=== PATIENT | female | born 1940 | race Caucasian/White ===

== ENCOUNTER → 2020-03-02 12:14 | Outpatient (CLI) | payer MEDICARE, MEDICAID, SELFPAY ==
--- NOTE | 2020-03-02 12:26 | MRI_ITS ---
STUDY: MRI CERVICAL SPINE WITHOUT CONTRAST REASON FOR EXAM: Female, 79 years old. spondylosis, radiculopathy, L SHOULDER PAIN RADIATES INTO HEAD TECHNIQUE: Standardized fat and water weighted pulse sequences were obtained in the sagittal and axial planes. COMPARISON: None FINDINGS: Normal foramen magnum and brainstem-cervical cord junction. Normal craniovertebral junction. Normal anterior atlantoaxial articulation. Normal odontoid process. Normal cervical lordosis. Normal vertebral bodies and posterior osseous elements. C2-3: Normal endplates. Normal disc height, signal and morphology. Normal central canal and intervertebral neural foramina. C3-4: 2 mm retrolisthesis of C3 on C4 with a mild broad disc osteophyte complex produces moderate spinal stenosis with abutment of the central spinal cord and moderate lateral neural foraminal stenosis. C4-5: Normal endplates. Normal disc height, signal and morphology. Normal central canal and intervertebral neural foramina. C5-6: Mild broad disc osteophyte complex produces moderate spinal stenosis with abutment of the central spinal cord and mild bilateral neural foraminal stenosis. C6-7: Mild bilobed disc osteophyte complex and bilateral uncovertebral hypertrophy produces mild spinal stenosis and mild bilateral neural foraminal stenosis. C7-T1: Normal endplates. Normal disc height, signal and morphology. Normal central canal and intervertebral neural foramina. Normal cervical cord. Normal visualized soft tissue structures. MRI/Spine Cervical (Routine) IMPRESSION: Multilevel degenerative changes, as described above. Electronically Signed: Zacarias Grier MD at 17:11 EDT Tel , Service support ,
== END ==
PROVIDERS: PCP Nurse Practitioner Family; Referring Provider Nurse Practitioner Family; Visit Provider Nurse Practitioner Family
DX: M48.9 Spondylopathy, unspecified (principal); M54.12 Radiculopathy, cervical region; M48.02 Spinal stenosis, cervical region; M47.812 Spondylosis without myelopathy or radiculopathy, cervical region
CPT/HCPCS: 72141

== ENCOUNTER → 2024-02-13 | Outpatient (CLI) | payer MEDICARE, MEDICAID, SELFPAY ==
--- NOTE | 2024-02-12 13:00 | ASPIG_PTH ---
PATIENT: VICKIE BLUE LOC: [facility] U#:[id number] AGE/SX: 83/F ROOM: RE02/13/[address]: Dr. Yony Ramirez MD : 1940 BED: DIS: 02/13/2024 SPEC #: [id number] RECD: 02/12/24 15:20 STATUS: BRANDON REIleana #: [id number] WILIAN: 02/12/24 13:[address]: Yony Ramirez DEPT: CYTOLOGY RECD BY: Liyah Solo ENTERED: 02/13/24 10:14 SP TYPE: ASP OUT OTHR DR: Dr. Judy Erwin MD Tissues: A - Thyroid gland, NOS B - Thyroid gland, NOS Procedures: FNA Specimen Adequacy Special Stain Group II Surgery Specimen Level IV Cytology Other HEADER OPERATION: Fine needle aspiration of right thyroid nodule PRE-OP DIAGNOSIS: Right thyroid nodule TISSUE SUBMITTED: A- Right thyroid nodule fluid, B- Right thyroid nodule slides DIAGNOSIS CYTOLOGY A. Right thyroid nodule fluid, fine needle aspiration (cytospins and cellblock): Negative for malignant cells. B. Right thyroid nodule, fine needle aspiration (smears): Consistent with benign follicular/colloid nodule, [place] Category II. See comment. DAJAerika 02/16/2024 COMMENT A. Specimen is bloody and follicular cells are not identified. B. The specimen is paucicellular, however, contains minimal number of follicular cells required for adequacy of the specimen. The [place] System for thyroid diagnostic categorization was used in the evaluation of this case. Correlation with clinical, radiologic findings and appropriate follow up are necessary. Case has been reviewed in consultation with Dr. Valdivia who concurs with the above diagnosis. IDC:AM CYTOLOGY STUDY Slides are reviewed. CYTOLOGY GROSS A. Received is 30 ml of red fluid labeled with the patient's name and and designated per the requisition as Right thyroid nodule. Submitted for cytology preparation including cell block. B. Received are 4 smears labeled with the patient's name and designated per the requisition as Right thyroid nodule. Submitted for staining. Mr 02/13/2024 TC:5 CPT: [id number]
== END | disposition home or self-care (01) ==
PROVIDERS: PCP Family Medicine; Referring Provider Surgery; Visit Provider Surgery
DX: E04.1 Nontoxic single thyroid nodule (principal)
CPT/HCPCS: 88161; 88172; 88305; 88313

== ENCOUNTER → 2024-07-22 | Outpatient (CLI) | payer MEDICARE, MEDICAID, SELFPAY ==
[2024-07-22 18:29] LABS: Anion Gap 8 (5-15); BUN 16 mg/dL (4-19); BUN/Creat Ratio 13.5 RATIO (10-20); Chloride 107 mmol/L (98-108); Creatinine, Serum 1.21 mg/dL (0.70-1.20); EST Glomerular Filtration Rate 44 (>60); Glucose 93 mg/dL (70-99); Magnesium 1.9 mg/dL (1.5-2.2); Potassium 4.2 mmol/L (3.3-5.1); Sodium Level 138 mmol/L (133-145)
== END | disposition home or self-care (01) ==
LOC: BFHLAB 14:02
PROVIDERS: PCP Family Medicine; Visit Provider Family Medicine
DX: I49.3 Ventricular premature depolarization (principal); E04.1 Nontoxic single thyroid nodule
CPT/HCPCS: 36415; 80048; 83735; 84443

== ENCOUNTER → 2025-02-19 | Outpatient (CLI) | payer MEDICARE, MEDICAID, SELFPAY ==
--- OUTSIDE RECORDS SUMMARY | 2025-02-19 11:18 | XMS RPT_ITS | CCD ---
Author Organization [facility] Care Team Providers Care Block Breaker Name Role Phone Alexa Sky Referring Unavailable Alexa Sky Attending Unavailable Judy Erwin Primary Care Unavailable Judy Erwin Attending Unavailable Judy Erwin Primary Care Unavailable Alexa Sky Attending Unavailable Brodie Erwinnah Referring Unavailable Judy Erwin Primary Care Unavailable Rip BUCKLEY, Dr. Kim Primary Care Provider Dr. Judy Erwin MD Attending Provider [phone] BRODIE ERWINNAH Consulting Unavailable DAR DUMAS MD Primary Care UnavailDAR Conrad MD Attending UnavailDAR Conrad MD Admitting Unavailabl e PROVIDER, UNKNOWN Consulting Unavailable PROVIDER, UNKNOWN Consulting Unavailable BRODIE ERWINNAH Consulting Unavailable JUDY ERWIN Attending Unavailable RPI JUDY Admitting Unavailable RYLEEEDEL, JUDY Primary Care Unavailable PROVIDER, UNKNOWN Consulting Unavailable PROVIDER, UNKNOWN Consulting Unavailable BRODIE ERWINNAH Consulting Unavailable ALEXA SKY MD Admitting Unavailable ALEXA SKY MD Primary Care Unavailable ALEXA SKY MD Attending Unavailable PROVIDER, UNKNOWN Consulting Unavailable PROVIDER, UNKNOWN Consulting Unavailable DAVIDEL JUDY Consulting Unavailable MUKESH WISDOM MD Primary Care Unava ilable MUKESH WISDOM MD Attending Unava ilMUKESH Cooper MD Admitting Unava ilable PROVIDER, UNKNOWN Consulting Unavailable PROVIDER, UNKNOWN Consulting Unavailable MIEDEL, JUDY Consulting Unavailable RIP JUDY Attending Unavailable RIP, JUDY Admitting Unavailable RIP JUDY Primary Care Unavailable PROVIDER, UNKNOWN Consulting Unavailable PROVIDER, UNKNOWN Consulting Unavailable BRODIE ERWINNAH Consulting Unavailable MIEDEL, JUDY Referring Unavailable RANDI BARNETT MD Primary Care Unavailable RANDI BARNETT MD Admitting Unavailable RANDI BARNETT MD Attending Unavailable PROVIDER, UNKNOWN Consulting Unavailable PROVIDER, UNKNOWN Consulting Unavailable JUDY ERWIN Consulting Unavailable DAVIDELDANDREH Attending Unavailable DAVIDEL, JUDY Admitting Unavailable MISURIEL, JUDY Primary Care Unavailable PROVIDER, UNKNOWN Consulting Unavailable PROVIDER, UNKNOWN Consulting Unavailable ALLIEDYLAN BUCK Primary Care Unavailable ALLIEDYLAN BUCK Attending Unavailable BRODIE ERWINNAH Consulting Unavailable ALLIE, DYLAN Admitting Unavailable PROVIDER, UNKNOWN Consulting Unavailable PROVIDER, UNKNOWN Consulting Unavailable TAWANNA MARTÍNEZ Primary Care Unavailable TAWANNA MARTÍNEZ Attending Unavailable TAWANNA MARTÍNEZ Admitting Unavailable JUDY ERWIN Consulting Unavailable PROVIDER, UNKNOWN Consulting Unavailable PROVIDER, UNKNOWN Consulting Unavailable Allergies Allergy Classification Reported Allergen(s) Allergy Type Date of Onset Reaction(s) Facility (1 source) Cephalexin Drug Allergy 02-12-20 [facility] Repository (2 sources) cyclobenzaprine Drug Allergy 02-12-20 Nausea [facility] Repository (1 source) Lovastatin Drug Allergy 02-12-20 [facility] Repository (2 sources) Pentazocine Drug Allergy 02-12-20 MADE HER FEEL FUNNY [facility] Repository (1 source) Juakvde-Jwz-Ntk Reductase Inhibitor Drug allergy (disorder) 02-12-20 [facility] Repository (1 source) Cephalexin Drug Allergy 02-12-20 unknown [facility] (1 source) Lovastatin Drug Allergy 02-12-20 [facility] (1 source) Hypqaub-Ebp-Sjk Reductase Inhibitor Propensity to adverse reactions 02-12-20 Nausea [facility] (1 source) Cephalexin Drug Allergy [facility] Repository (1 source) gatifloxacin Drug Allergy [facility] Repository (1 source) Lovastatin Drug Allergy [facility] Repository (1 source) Pentazocine Drug Allergy [facility] Repository (1 source) Pentazocine Drug Allergy [facility] Repository (1 source) STATINS (HMG-COA REDUCTASE INHIBITORS) Drug allergy (disorder) [facility] Repository Medications Current Medications Medication Drug Class(es) Dates Sig (Normalized) Sig (Original) [id number] 200 actuat albuterol 0.09 mg/actuat metered dose inhaler (1 source) beta2-Adrenergic Agonist Start: 02-12-2024 Albuterol Sulfate 90 mcg/actuation HFA aerosol inhaler Active INHALATION February 12, 2024 12:00am amLODIPine 2.5 mg oral tablet (2 sources) Dihydropyridine Calcium Channel Tere Start: 02-12-2024 take 1 tablet by mouth once daily Amlodipine 2.5 mg tablet Active 2.5 mg PO daily February 12, 2024 12:00am Start: 05-22-2015 End: 04-21-2020 take 1 tablet by mouth once daily Amlodipine 2.5 MG tablet Discontinued 2.5 mg PO DAILY May 22, 2015 1:00am April 21, 2020 2:00pm aspirin 81 mg delayed release oral tablet (3 sources) Platelet Aggregation Inhibitor, Nonsteroidal Anti-inflammatory Drug Start: 02-12-2024 take 1 tablet by mouth once daily Aspirin 81 mg tablet,delayed release (DR/EC) Active 81 mg PO daily February 12, 2024 12:00am Start: 06-09-2015 End: 02-12-2024 take 1 tablet by mouth twice daily at mealtime Aspirin 325 MG tablet Discontinued 325 mg PO TWICE DAILY WITH MEALS 90 June 09, 2015 1:00am February 12, 2024 1:05pm Start: 05-22-2015 End: 06-09-2015 take 1 tablet by mouth once daily Aspirin 81 MG tablet Discontinued 81 mg PO DAILY@0800 May 22, 2015 1:00am June 09, 2015 11:00am 12 hr buPROPion hydrochloride 150 mg extended release oral tablet (2 sources) Aminoketone Start: 02-12-2024 take 1 tablet by mouth once daily Bupropion Hcl 150 mg tablet sustained-release 12 hr Active 150 mg PO daily February 12, 2024 12:00am Start: 05-22-2015 End: 02-12-2024 take 1 tablet by mouth once daily Bupropion Hcl 150 MG tablet extended release 24 hr Discontinued 150 mg PO DAILY May 22, 2015 1:00am February 12, 2024 1:05pm carvedilol 12.5 mg oral tablet (1 source) alpha-Adrenergic Tere, beta-Adrenergic Tere Start: 02-12-2024 take 1 tablet by mouth twice daily Carvedilol 12.5 mg tablet Active 12.5 mg PO TWICE A DAY February 12, 2024 12:00am famotidine 20 mg oral tablet (1 source) Histamine-2 Receptor Antagonist Start: 02-12-2024 take 1 tablet by mouth twice daily Famotidine 20 mg tablet Active 20 mg PO TWICE A DAY February 12, 2024 12:00am losartan potassium 25 mg oral tablet (1 source) Angiotensin 2 Receptor Tere Start: 02-12-2024 take 1 tablet by mouth once daily Losartan 25 mg tablet Active 25 mg PO daily February 12, 2024 12:00am magnesium chloride 598 mg delayed release oral tablet (1 source) Start: 02-12-2024 take 2 tablets by mouth twice daily Magnesium Chloride (Slow-Mag) 71.5 mg tablet,delayed release (DR/EC) Active 143 mg PO TWICE A DAY February 12, 2024 12:00am Completed/Discontinued Medications Medication Drug Class(es) Dates Sig (Normalized) Sig (Original) acetaminophen 325 mg / HYDROcodone bitartrate 5 mg oral tablet (2 sources) Opioid Agonist Start: 04-21-2020 End: 02-12-2024 Hydrocodone-Acetami nophen 5-325 mg tablet Discontinued 1 {tbl} PO TWICE A DAY as needed April 21, 2020 1:00am February 12, 2024 1:04pm Start: 05-22-2015 End: 04-21-2020 Hydrocodone-Acetaminophen 1 EACH tablet Discontinued 1 NMA PO EVERY 4 HOURS NEEDED as needed for Pain May 22, 2015 1:00am April 21, 2020 1:58pm amiodarone hydrochloride 200 mg oral tablet (1 source) Antiarrhythmic Start: 04-21-2020 End: 02-12-2024 take 1 tablet by mouth once daily Amiodarone 200 mg tablet Discontinued 200 mg PO DAILY April 21, 2020 1:00am February 12, 2024 1:04pm atorvastatin 80 mg oral tablet (1 source) HMG-CoA Reductase Inhibitor Start: 05-22-2015 End: 02-12-2024 take 1 tablet by mouth at bedtime Atorvastatin 80 MG tablet Discontinued 80 mg PO AT BEDTIME May 22, 2015 1:00am February 12, 2024 1:03pm calcium carbonate 1250 mg oral tablet (1 source) Start: 06-09-2015 End: 02-12-2024 take 1 tablet by mouth twice daily at mealtime Calcium Carbonate 500 MG tablet Discontinued 500 mg PO TWICE DAILY WITH MEALS June 09, 2015 1:00am February 12, 2024 1:05pm celecoxib 200 mg oral capsule (1 source) Nonsteroidal Anti-inflammatory Drug Start: 06-09-2015 End: 04-21-2020 take 1 capsule by mouth twice daily Celecoxib 200 MG capsule Discontinued 200 mg PO TWICE A DAY June 09, 2015 1:00am April 21, 2020 1:59pm clopidogrel 75 mg oral tablet (1 source) P2Y12 Platelet Inhibitor Start: 04-21-2020 End: 02-12-2024 take 1 tablet by mouth once daily Clopidogrel 75 mg tablet Discontinued 75 mg PO DAILY April 21, 2020 1:00am February 12, 2024 1:04pm diazePAM 5 mg oral tablet (1 source) Benzodiazepine Start: 05-22-2015 End: 04-21-2020 take 1 tablet by mouth at bedtime Diazepam 5 MG tablet Discontinued 5 mg PO AT BEDTIME May 22, 2015 1:00am April 21, 2020 1:59pm docusate sodium 50 mg / sennosides, skilled nursing 8.6 mg oral tablet (1 source) Start: 06-09-2015 End: 02-12-2024 Sennosides-Docusat e Sodium 1 TABLET tablet Discontinued 2 {tbl} PO TWICE A DAY June 09, 2015 1:00am February 12, 2024 1:04pm ergocalciferol 1.25 mg oral capsule (1 source) Provitamin D2 Compound Start: 05-22-2015 End: 02-12-2024 Ergocalciferol (Vitamin D2) 50,000 UNIT capsule Discontinued 91711 U PO Q14D May 22, 2015 1:00am February 12, 2024 1:05pm esomeprazole 20 mg delayed release oral capsule (1 source) Proton Pump Inhibitor Start: 04-21-2020 End: 02-12-2024 take 1 capsule by mouth once daily Esomeprazole Magnesium 20 mg capsule,delayed release(DR/EC) Discontinued 20 mg PO DAILY April 21, 2020 1:00am February 12, 2024 1:05pm Food Supplemt, Lactose-Reduced 120 ML liquid (1 source) Start: 06-09-2015 End: 04-21-2020 take 1 mL by mouth four times daily Food Supplemt, Lactose-Reduced 120 ML liquid Discontinued 120 mL PO 4 TIMES DAILY 0 June 09, 2015 1:00am April 21, 2020 1:59pm furosemide 40 mg oral tablet (1 source) Loop Diuretic Start: 04-21-2020 End: 02-12-2024 take 1 tablet by mouth once daily Furosemide 40 mg tablet Discontinued 40 mg PO DAILY April 21, 2020 1:00am February 12, 2024 1:04pm lidocaine 0.05 mg/mg topical ointment (1 source) Antiarrhythmic, Amide Local Anesthetic Start: 05-22-2015 End: 04-21-2020 Lidocaine 35 GM ointment Discontinued 35 g TOPICAL NEEDED as needed for Pain May 22, 2015 1:00am April 21, 2020 1:59pm lisinopril 20 mg oral tablet (1 source) Angiotensin Converting Enzyme Inhibitor Start: 05-22-2015 End: 04-21-2020 take 1 tablet by mouth once daily Lisinopril 20 MG tablet Discontinued 20 mg PO DAILY May 22, 2015 1:00am April 21, 2020 1:59pm magnesium hydroxide 80 mg/ml oral suspension (1 source) Start: 05-22-2015 End: 04-21-2020 take 1 mL by mouth once daily as needed for constipation Magnesium Hydroxide 30 ML suspension Discontinued 15 mL PO DAILY NEEDED as needed for Constipation May 22, 2015 1:00am April 21, 2020 2:00pm magnesium oxide 400 mg oral tablet (1 source) Start: 06-09-2015 End: 02-12-2024 take 1 tablet by mouth twice daily at mealtime Magnesium Oxide 400 MG tablet Discontinued 400 mg PO TWICE DAILY WITH MEALS June 09, 2015 1:00am February 12, 2024 1:04pm meloxicam 15 mg oral tablet (1 source) Nonsteroidal Anti-inflammatory Drug Start: 05-22-2015 End: 06-09-2015 take 1 tablet by mouth once daily Meloxicam 15 MG tablet Discontinued 15 mg PO DAILY May 22, 2015 1:00am June 09, 2015 11:01am metoprolol tartrate 50 mg oral tablet (2 sources) beta-Adrenergic Tere Start: 04-21-2020 End: 02-12-2024 take 1 tablet by mouth once daily Metoprolol Tartrate 50 mg tablet Discontinued 50 mg PO DAILY April 21, 2020 1:00am February 12, 2024 1:04pm Start: 05-22-2015 End: 04-21-2020 take 1 tablet by mouth twice daily Metoprolol Tartrate 50 MG tablet Discontinued 50 mg PO TWICE A DAY May 22, 2015 1:00am April 21, 2020 1:59pm nitroglycerin 0.4 mg sublingual tablet (1 source) Nitrate Vasodilator Start: 05-22-2015 End: 02-12-2024 Nitroglycerin 0.4 MG tablet Discontinued 0.4 mg SL Q5M as needed for Chest Pain May 22, 2015 1:00am February 12, 2024 1:04pm abuse-deterrent 12 hr oxyCODONE hydrochloride 10 mg extended release oral tablet (1 source) Opioid Agonist Start: 06-09-2015 End: 04-21-2020 take 1 tablet by mouth twice daily Oxycodone 10 MG tablet Discontinued 10 mg PO TWICE A DAY June 09, 2015 1:00am April 21, 2020 2:00pm pantoprazole 40 mg delayed release oral tablet (1 source) Proton Pump Inhibitor Start: 05-22-2015 End: 04-21-2020 take 1 tablet by mouth once daily Pantoprazole 40 MG tablet Discontinued 40 mg PO DAILY May 22, 2015 1:00am April 21, 2020 2:00pm PARoxetine hydrochloride 10 mg oral tablet (1 source) Serotonin Reuptake Inhibitor Start: 05-22-2015 End: 02-12-2024 take 1 tablet by mouth once daily Paroxetine Hcl 10 MG tablet Discontinued 10 mg PO DAILY May 22, 2015 1:00am February 12, 2024 1:04pm potassium chloride 10 meq extended release oral tablet (1 source) Start: 05-22-2015 End: 04-21-2020 take 1 tablet by mouth once daily Potassium Chloride 10 MEQ tablet,ER particles/crystals Discontinued 10 meq PO DAILY May 22, 2015 1:00am April 21, 2020 2:00pm venlafaxine 25 mg oral tablet (1 source) Serotonin and Norepinephrine Reuptake Inhibitor Start: 04-21-2020 End: 02-12-2024 take 1 tablet by mouth once daily Venlafaxine 25 mg tablet Discontinued 25 mg PO DAILY April 21, 2020 1:00am February 12, 2024 1:05pm Problems Active Problems Problem Classification Problem Date Documented Da te Episodic/Chronic Cardiac dysrhythmias (1 source) Ventricular premature depolarization; Translations: [Ventricular premature depolarization] Onset: 07-29-2024 Chronic Coronary atherosclerosis and other heart disease (1 source) Coronary arteriosclerosis; Translations: [Atherosclerotic heart disease of [place] coronary artery without angina pectoris] 06-07-2015 Chronic Disorders of lipid metabolism (1 source) Hypercholesterolemia ; Translations: [Pure hypercholesterolemia , unspecified] 06-07-2015 Chronic Essential hypertension (1 source) Hypertensive disorder; Translations: [Essential (primary) hypertension] 06-07-2015 Chronic Osteoarthritis (1 source) Arthritis of hip; Translations: [Unilateral primary osteoarthritis, right hip] 06-07-2015 Chronic Comment on above: Total right hip arth roplasty June 06, 2015 Thyroid disorders (2 sources) Nontoxic single thyroid nodule; Translations: [Thyroid nodule] Onset: 03-09-2024 02-12-2024 Chronic Comment on above: Patient 83-year-old female, reasonably healthy for her stated age, who presents on referral for right thyroid nodule after several years of ultrasound surveillance. The nodule is noted to have increased in size from prior study performed in 2021. Largely, patient's history is negative for any evidence of compressive physiology (the positives that she does acknowledge appear related to an infectious cause). When patient's dimensions were applied to the LALO change in volume thyroid nodule calculator this nodule has grown by 89% in 2 years. Additionally, meets criteria strictly with interpreting the dimensions against the ACR standards. Thus, I did extend the radiology recommendation for biopsy to patient and her son today. They were receptive and the procedure was undertaken uncomplicated fashion during today's visit. Complete details are given in the "procedures" section of this note. Past or Other Problems Problem Classification Problem Date Documented Da te Episodic/Chronic Other gastrointestinal disorders (3 sources) Other fecal abnormalities; Translations: [Other fecal abnormalities] Onset: 04-30-2024 Episodic Results Test Name Value Interpretation Reference Range Facility SHOULDER COMPLETE LTon 02-[address] ? [place] [address] ? Patient: VICKIE BLUE Phone#: : [phone] Age: 84 Gender: F Pt. Type: Out Account: [id number] Location: [facility] Ordering: [facility] Exam Date: 02/04/2025/12:55 Family Phys: JUDY ERWIN Charge Code: 064222 Physician: Kleberg Order #: [id number] Dose#: PROCEDURE: X-RAY SHOULDER LT MIN 2 VIEWS COMPARISON: [facility], XR, SHOULDER LT, 05/18/2020, 10:58. INDICATIONS: Pain. FINDINGS: BONES: No fracture or dislocation. There is a large bulky spur at the inferior humeral head. There is spur of the inferior glenoid rim. There is diffuse bony demineralization. Glenohumeral joint space loss. SOFT TISSUES: Negative. No visible soft tissue swelling. EFFUSION: None visible. OTHER: Aortic calcifications CONCLUSION: 1. Glenohumeral joint space loss and spurring Dictated by: Griselda Sinha MD on 02/04/2025 at 13:48 Approved by: Griselda Sinha MD on 02/04/2025 at 13:51 Normal [facility] CHEST 2 VIEWSon 12-16-2024 CHEST 2 VIEWS [place] [address] Patient: VICKIE BLUE Phone#: : 1940 Age: 84 Gender: F Pt. Type: Out Account: [id number] Location: [facility] Ordering: JUDY ERWIN Exam Date: 12/16/2024/13:13 Family Phys: Charge Code: 341502 Physician: Kleberg Order #: [id number] Dose#: PROCEDURE: X-RAY CHEST 2 VIEWS COMPARISON: [facility], CT, CHEST PE W CON, 05/05/2024, 22:54. [facility], XR, CHEST 1 VIEW, 05/05/2024, 21:39. INDICATIONS: Dyspnea. FINDINGS: LUNGS: Lungs are hyperinflated. Chronic interstitial changes are present. VASCULATURE: Normal. Unremarkable pulmonary vasculature. CARDIAC: Normal. No cardiac silhouette abnormality or cardiomegaly. MEDIASTINUM: Calcification of the aortic arch is present. PLEURA: Normal. No effusion or pleural thickening. BONES: Degenerative changes are present at the shoulders. OTHER: There is interposition of bowel beneath the right hemidiaphragm. CONCLUSION: 1. COPD. There has been no significant change since previous exam. Dictated by: Jenny Gonzalez MD on 12/16/2024 at 13:22 Approved by: Jenny Gonzalez MD on 12/16/2024 at 13:26 Normal [facility] BMP with eGFRon 12-14-2024 AGE 84 years Normal [facility] Comment on above: Performed By: #### 2 [id number] ####[facility],[address] [place] [address] 28046 Anion gap [Moles/Vol] 13 mmol/L Normal 10 - 20 [facility] Comment on above: Performed By: #### 2 [id number] ####[facility],[address] [place] [address] 13009 BMP with eGFR Normal [facility] Comment on above: Result Comment: BASI C METABOLIC PANEL Performed By: #### 2 [id number] ####[facility],[address] [place] [address] 28111 Calcium [Mass/Vol] 8.9 mg/dL Normal 8.5 - 10.1 [facility] Comment on above: Performed By: #### 2 89498 ####[facility],[address] [place] [address] 12523 Chloride [Moles/Vol] 105 mmol/L Normal 98 - 107 [facility] Comment on above: Performed By: #### 2 04175 ####[facility],[address] [place] [address] 77853 CO2 [Moles/Vol] 23.6 mmol/L Normal 21.0 - 32.0 [facility] Comment on above: Performed By: #### 2 64685 ####[facility],[address] [place] [address] 31071 Creatinine [Mass/Vol] 1.16 mg/dL High 0.55 - 1.02 [facility] Comment on above: Performed By: #### 2 06850 ####[facility],[address] [place] [address] 54932 eGFR 44 ML/MINUTE Low 60 - 999 [facility] Comment on above: Performed By: #### 2 55578 ####[facility],[address] [place] [address] 92818 eGFR(AA) 54 ML/MINUTE Low 60 - 999 [facility] Comment on above: Result Comment: ACCO RDING TO THE NATIONAL KIDNEY DISEASE EDUCATION PROGRAM(NKDE), A NORMAL eGFR IS A VALUE GREATER THAN OR EQUAL TO 60 ML/MIN/1.73 SQ METERS. CHRONIC KIDNEY DISEASE: <60mL/MIN/1.73 SQ METERS KIDNEY FAILURE: <15mL/MIN/1.73 SQ METERS THIS TEST SHOULD ONLY BE USED FOR PATIENTS 18 YEARS OF AGE AND OLDER. Performed By: #### 2 59944 ####[facility],[address] [place] [address] 79010 Glucose [Mass/Vol] 83 mg/dL Normal 74 - 106 [facility] Comment on above: Performed By: #### 2 76155 ####[facility],[address] [place] [address] 83522 Potassium [Moles/Vol] 4.8 mmol/L Normal 3.5 - 5.1 [facility] Comment on above: Performed By: #### 2 34235 ####[facility],[address] [place] [address] 48834 Sodium [Moles/Vol] 137 mmol/L Normal 136 - 145 [facility] Comment on above: Performed By: #### 2 10931 ####[facility],[address] [place] [address] 76880 Urea nitrogen [Mass/Vol] 9 mg/dL Normal 7 - 18 [facility] Comment on above: Performed By: #### 2 36235 ####[facility],[address] [place] [address] 26978 CBC + DIFFon 12-14-2024 Baso # 0.03 x10EE3/UL Normal 0.00 - 0.10 [facility] Comment on above: Performed By: #### 2 08361 ####[place] [address] Basophils/100 WBC (Bld) 0.6 % Normal 0.0 - 2.0 [facility] Comment on above: Performed By: #### 2 70104 ####[place] [address] CBC + DIFF Normal [facility] Comment on above: Result Comment: CBC- COMPLETE BLOOD COUNT Performed By: #### 2 71986 ####[place] [address] EO # 0.05 x10EE3/UL Normal 0.00 - 0.50 [facility] Comment on above: Performed By: #### 2 89728 ####[place] [address] Eosinophils/100 WBC (Bld) 0.9 % Normal 0.0 - 7.0 [facility] Comment on above: Performed By: #### 2 23370 ####[place] [address] Erythrocyte distribution width (RBC) [Ratio] 14.1 % Normal 12.0 - 15.6 [facility] Comment on above: Performed By: #### 2 10123 ####[place] [address] Hematocrit (Bld) [Volume fraction] 33.0 % Low 34.0 - 46.0 [facility] Comment on above: Performed By: #### 2 43730 ####[place] [address] Hemoglobin (Bld) [Mass/Vol] 11.5 g/dL Low 12.0 - 16.0 [facility] Comment on above: Performed By: #### 2 12567 ####[facility],[address] [place] [address] Lymph # 1.48 x10EE3/UL Normal 0.80 - 2.80 [facility] Comment on above: Performed By: #### 2 44322 ####[facility],[address] [place] [address] Lymphocytes/100 WBC (Bld) 27.1 % Normal 20.0 - 45.0 [facility] Comment on above: Performed By: #### 2 63929 ####[facility],[address] [place] [address] MANUAL DIFF N/A Normal [facility] Comment on above: Performed By: #### 2 58898 ####[facility],[address] [place] [address] MCH (RBC) [Entitic mass] 35 pg High 27 - 33 [facility] Comment on above: Performed By: #### 2 32308 ####[facility],[address] [place] [address] MCHC 35 X10 3 Normal 32 - 36 [facility] Comment on above: Performed By: #### 2 49616 ####[facility],[address] [place] [address] MCV (RBC) [Entitic vol] 100 fL High 80 - 99 [facility] Comment on above: Performed By: #### 2 93014 ####[facility],[address] [place] [address] [place] # 0.58 x10EE3/UL Normal 0.20 - 1.00 [facility] Comment on above: Performed By: #### 2 59634 ####[facility],[address] [place] [address] MONOS % 10.6 % High 0.0 - 10.0 [facility] Comment on above: Performed By: #### 2 91377 ####[facility],[address],[place] [address] Morphology Haris (Bld) [Interp] N/A Normal [facility] Comment on above: Performed By: #### 2 80882 ####[facility],[address] [place] [address] 90005 Neut # 3.31 x10EE3/UL Normal 1.50 - 7.10 [facility] Comment on above: Performed By: #### 2 21677 ####[facility],[address] [place] [address] 74611 Neutrophils/100 WBC (Bld) 60.8 % Normal 46.0 - 76.0 [facility] Comment on above: Performed By: #### 2 21260 ####[facility],[address] [place] [address] 93129 PLATELET 185 x10EE3/UL Normal 150 - 450 [facility] Comment on above: Performed By: #### 2 92317 ####[facility],[address] [place] [address] 53535 Platelet mean volume (Bld) [Entitic vol] 7.7 fL Normal 6.6 - 10.5 [facility] Comment on above: Result Comment: AUTO MATED DIFFERENTIAL Performed By: #### 2 36594 ####[facility],[address] [place] [address] 31333 RBC 3.31 x 10EE6/UL Low 4.10 - 5.30 [facility] Comment on above: Performed By: #### 2 07700 ####[facility],[address] [place] [address] 04523 WBC 5.5 x 10EE3/UL Normal 4.5 - 10.8 [facility] Comment on above: Performed By: #### 2 35930 ####[facility],[address] [place] [address] 13334 MAGNESIUMon 12-14-2024 Magnesium [Mass/Vol] 1.8 mg/dL Normal 1.8 - 2.4 [facility] Comment on above: Performed By: #### [id number] ####[facility],[address] [place] [address] 41197 TSHon 12-14-2024 TSH Qn 1.40 m[IU]/L Normal 0.35 - 3.74 [facility] Comment on above: Performed By: #### 2 [id number] #### [facility],[address] [place], [place] [id number] CV ECHO COMPLETE WITHOUT CON TRASTon 09-13-2024 CV ECHO COMPLETE WITHOUT CONTRAST [place] [address] Patient: VICKIE BLUE Phone#: : 1940 Age: 84 Gender: F Pt. Type: Out Account: [id number] Location: [facility] Ordering: ADR DUMAS Exam Date: 09/13/2024/10:48 Family Phys: JUDY ERWIN Charge Code: [id number] Physician: Kleberg Order #: [id number] Dose#: PROCEDURE: ECHOCARDIOGRAM WITH DOPPLER AND COLOR FLOW HISTORY: Hx heart attack and stents 03/2020, and previous stents 2006. INDICATIONS: CAD COMPARISON: None. TECHNIQUE: A 2-D ultrasound, color spectral Doppler and M-mode evaluation of the heart and great vessels. PATIENT MEASUREMENTS: Height (in.): 66 BSA: 1.83 Weight (lbs.): 162 BP: 152/79 Ceramic Chemist: GABBY M MODE 2D MEASUREMENTS AND CALCULATIONS: LVIDd: 4.53 cm LVIDs: 3.10 cm IVSd: 0.89 cm LVPWd: 0.88 cm LVOT diam: 1.90 cm FS: 31.47 % Ao Root diam: 2.24 cm LA diam: 3.4 cm LA Volume Index: 27.2 mL/m2 LA A4 Area: 13.91 cm2 RA A4 Area: 15.2 cm2 RVDd: 3.9 cm TAPSE: 20.2 mm DOPPLER MEASUREMENTS AND CALCULATIONS MITRAL MV E MAX anselmo: 0.75 m/s MV A MAX anselmo: 0.78 m/s MV E-A ratio: 0.96 MVA VTI 2.35 cm2 MV V2 max: 1.00 m/s Continued Report - Page 2 of 3 Patient: VICKIE BLUE Phone#: : 1940 Age: 84 Gender: F Pt. Type: Out Account: [id number] Location: [facility] Ordering: DAR DUMAS Exam Date: 09/13/2024/10:48 Family Phys: JUDY ERWIN Charge Code: [id number] Physician: Kleberg Order #: [id number] Dose#: MV max P.01 mm[Hg] MV V2 mean: 0.59 m/s MV mean P.57 mm[Hg] MV V2 VTI: 29.38 cm MV PHT: 100.42 ms MVA PHT 2.19 cm2 Lat Peak E' Anselmo 10 cm/sec Septal Peak E' ANSELMO 8 cm/sec E/E' lateral 7.3 E/E' medial 9.1 AORTIC Ao V2 max: 1.19 m/s Ao max P.62 mm[Hg] Ao V2 mean: 0.79 m/s Ao mean P.89 mm[Hg] Ao V2 VTI: 29.68 cm FRED (V Max): 2.35 cm2 FRED (VTI): 2.32 cm2 LV V1 Max 0.99 m/s LV V1 Max PG 3.90 mm[Hg] LV V1 Mean PG 2.14 mm[Hg] LV V1 mean 0.68 m/s LV V1 VTI 24.43 cm PULMONIC PA V2 Max 0.96 m/s PA Max PG 3.71 mm[Hg] TRICUSPID TR Max Anselmo TR max PG RVSP 2D/M-MODE AND COLOR FLOW LEFT VENTRICLE: Left ventricle is normal in size and thickness. Systolic ejection fraction is 55-60%. There are no regional wall motion abnormality seen. There is grade 1 diastolic dysfunction seen WALL MOTION: 1 - Basal anterior: Normal. 7 - Mid anterior: Normal. 13 - Apical anterior: Normal. 2 - Basal anteroseptal: Normal. 8 - Mid anteroseptal: Normal. 14 - Apical septal: Normal. 3 - Basal inferoseptal: Normal. 9 - Mid inferoseptal: Normal. 15 - Apical inferior: Normal. 4 - Basal inferior: Normal. 10-Mid inferior: Normal. 16 - Apical lateral: Normal. 5 - Basal inferolateral: Normal. 11-Mid inferolateral: Normal. 6 - Basal anterolateral: Normal. 12-Mid anterolateral: Normal. Continued Report - Page 3 of 3 Patient: VICKIE BLUE Phone#: : 1940 Age: 84 Gender: F Pt. Type: Out Account: [id number] Location: [facility] Ordering: DAR DUMAS Exam Date: 09/13/2024/10:48 Family Phys: JUDY ERWIN Charge Code: [id number] Physician: Kleberg Order #: [id number] Dose#: RIGHT VENTRICLE: Right ventricle is normal in size and systolic function LEFT ATRIUM: Left atrium is normal size RIGHT ATRIUM: Right atrium is normal in size. ATRIAL SEPTUM: Inadequately visualized. MITRAL VALVE: Mitral valve appears normal structure. There is mild regurgitation no stenosis seen TRICUSPID VALVE: Tricuspid valve is normal structure. There is trivial regurgitation no stenosis seen AORTIC VALVE: Aortic valve is trileaflet with sclerosis. There is no regurgitation or stenosis seen. PULMONIC VALVE: Pulmonic valve is inadequately visualized. Doppler shows no significant regurgitation or stenosis. AORTIC ROOT: Aortic root is normal in size. AORTIC ARCH: Inadequately visualized. DESC THORACIC AORTA: Inadequately visualized. Doppler shows normal flow IVC/SVC: Inadequately visualized PULMONARY VEINS: Inadequate Doppler. PERICARDIUM: There is no pericardial effusion seen CONCLUSION: 1. Left ventricle is normal in size and thickness. Systolic ejection fraction 55-60% with normal wall motion 2. There is mild mitral valve regurgitation seen 3. Aortic valve is trileaflet with sclerosis without stenosis or regurgitation 4. Right ventricle is normal size and systolic function 5. TR velocity is inadequate to calculate for right ventricular systolic pressure. Dictated by: DAR DUMAS MD on 09/14/2024 at 9:05 Approved by: DAR DUMAS MD on 09/14/2024 at 9:38 Normal [facility] Anion gap in Serum or Plasma Ordered By: Judy Erwin on 07-22-2024 Anion gap [Moles/Vol] 8 mmol/L 5-15 [facility] BUN/creatinine ratioOrdered By: Judy Erwin on 07-22-2024 Urea nitrogen/Creatinine [Mass ratio] 13.5 mg/mg - [facility] Basic Metabolic Profile (BMP )on 07-22-2024 BUN/CRE 13.5 RATIO Normal - [facility] Comment on above: Performed By: #### L 501.5200, L500.2500, L501.9520 #### [facility] [address] [place], [address] Calcium [Mass/Vol] 9.0 mg/dL Normal 7.6-11.0 [facility] Comment on above: Performed By: #### L 501.5200, L500.2500, L501.9520 #### [facility] [address] [place], [address] Chloride [Moles/Vol] 107 mmol/L Normal 98-108 [facility] Comment on above: Performed By: #### L 501.5200, L500.2500, L501.9520 #### [facility] [address] [place], [address] CO2 [Moles/Vol] 24.0 mmol/L Normal 21.0-32.0 [facility] Comment on above: Performed By: #### L 501.5200, L500.2500, L501.9520 #### [facility] [address] [place], [address] Creatinine [Mass/Vol] 1.21 mg/dL High 0.70-1.20 [facility] Comment on above: Performed By: #### L 501.5200, L500.2500, L501.9520 #### [facility] [address] [place], [address] GAP 8 Normal 5-15 [facility] Comment on above: Performed By: #### L 501.5200, L500.2500, L501.9520 #### [facility] [address] [place], [address] GFR/1.73 sq M.predicted among non-blacks MDRD (S/P/Bld) [Vol rate/Area] 44 mL/min/{1.73_m2} Low >60 [facility] Comment on above: Result Comment: mL/m in/1.73m2 CKD-EPI Creatinine Equation (2020) Performed By: #### L 501.5200, L500.2500, L501.9520 #### [facility] [address] [place], [address] Glucose [Mass/Vol] 93 mg/dL Normal 70-99 [facility] Comment on above: Performed By: #### L 501.5200, L500.2500, L501.9520 #### [facility] [address] [place], [address] Potassium [Moles/Vol] 4.2 mmol/L Normal 3.3-5.1 [facility] Comment on above: Performed By: #### L 501.5200, L500.2500, L501.9520 #### [facility] [address] [place], [address] Sodium [Moles/Vol] 138 mmol/L Normal 133-145 [facility] Comment on above: Performed By: #### L 501.5200, L500.2500, L501.9520 #### [facility] [address] [place], [address] Urea nitrogen [Mass/Vol] 16 mg/dL Normal 4-19 [facility] Comment on above: Performed By: #### L 501.5200, L500.2500, L501.9520 #### [facility] [address] [place], [address] Carbon dioxide, total [Moles /volume] in Central venous bloodOrdered By: Judy Erwin on 07-22-2024 CO2 [Moles/Vol] 24.0 mmol/L 21.0-32.0 [facility] Chloride assayOrdered By: Bogdan duffy Rip on 07-22-2024 Chloride [Moles/Vol] 107 mmol/L 98-108 [facility] GFR/1.73 sq M.predicted lasha g non-blacks MDRD (S/P/Bld) [Vol rate/Area]Ordered By: Judy Erwin on 07-22-2024 Estimated GFR (MDRD) Non-Af Amer 44 Low >60 [facility] Comment on above: mL/min/1.73m2 CKD-EP I Creatinine Equation (2020) Magnesiumon 07-22-2024 Magnesium [Mass/Vol] 1.9 mg/dL Normal 1.5-2.2 [facility] Comment on above: Performed By: #### L 501.5200, L500.2500, L501.9520 #### [facility] [address] [facility] [place], [place], [address] Magnesium (Unsp spec) [Mass/ Vol]Ordered By: Judy Erwin on 07-22-2024 Magnesium [Mass/Vol] 1.9 mg/dL 1.5-2.2 [facility] Potassium (Unsp spec) [Mass/ Vol]Ordered By: Judy Erwin on 07-22-2024 Potassium [Moles/Vol] 4.2 mmol/L 3.3-5.1 [facility] Serum creatinine measurement (mass/volume)Ordered By: Judy Erwin on 07-22-2024 Creatinine [Mass/Vol] 1.21 mg/dL High 0.70-1.20 [facility] Serum glucose measurement (m ass/volume)Ordered By: Judy Erwin on 07-22-2024 Glucose [Mass/Vol] 93 mg/dL 70-99 [facility] Serum or plasma calcium nishant urement (mass/volume)Ordered By: Judy Erwin on 07-22-2024 Calcium [Mass/Vol] 9.0 mg/dL 7.6-11.0 [facility] Serum or plasma urea nitroge n measurement (mass/volume)Ordered By: Judy Erwin on 07-22-2024 Urea nitrogen [Mass/Vol] 16 mg/dL 4-19 [facility] Sodium levelOrdered By: Aníbal Erwin on 07-22-2024 Sodium [Moles/Vol] 138 mmol/L 133-145 [facility] TSH DL <= 0.005 mIU/L QnOrde red By: Judy Erwin on 07-22-2024 Thyroid Stimulating Hormone (TSH) 1.810 uIU/mL 0.300-4.200 [facility] Thyroid Stim Hormone (TSH)on 07-22-2024 TSH 1.810 uIU/mL Normal 0.300-4.200 [facility] Comment on above: Performed By: #### L 501.5200, L500.2500, L501.9520 #### [facility] [address] [place], [address] CERVICAL SP COMPLETE, 4 OR 5 VIEWSon 05-20-2024 CERVICAL SP COMPLETE, 4 OR 5 VIEWS [place] [id number] Patient: VICKIE BLUE Phone#: : 1940 Age: 83 Gender: F Pt. Type: Out Account: [id number] Location: [facility] Ordering: REGINO MARTÍNEZ Exam Date: 05/20/2024/10:45 Family Phys: JUDY RIP Charge Code: [id number] Physician: Kleberg Order #: [id number] Dose#: PROCEDURE: X-RAY CERVICAL SPINE W/ AP, LATERAL, ODONTOID, AND OLBIQUES VIEWS COMPARISON: [facility], CT, CERVICAL W/O CON, 08/24/2017, 19:02. INDICATIONS: Pain FINDINGS: BONES: Degenerative changes of the spine are present. Endplate osteophytes present. There is no evidence of subluxation. DISC SPACES: Disc space narrowing is present most marked at the C3-4 C5-6 and C6-7 levels. PARASPINOUS: Negative. No paraspinous abnormality is seen. OTHER: Negative. CONCLUSION: 1. Multilevel degenerative changes present. 2. There is no evidence of fracture or subluxation. Dictated by: Jenny Gonzalez MD on 05/20/2024 at 12:15 Approved by: Jenny Gonzalez MD on 05/20/2024 at 12:24 Normal [facility] LUMBO SACRAL COMPLETE MIN 4 VIEWSon 05-20-2024 LUMBO SACRAL COMPLETE MIN [address] [address] Patient: VICKIE BLUE Phone#: : 1940 Age: 83 Gender: F Pt. Type: Out Account: [id number] Location: [facility] Ordering: REGINO MARTÍNEZ Exam Date: 05/20/2024/10:58 Family Phys: JUDY ERWIN Charge Code: [id number] Physician: Kleberg Order #: [id number] Dose#: PROCEDURE: X-RAY LUMBAR SPINE COMPLETE MIN 4 VIEWS COMPARISON: [facility], CT, CHEST PE W CON, 09/09/2022, 15:55. [facility], CT, CHEST PE W CON, 05/05/2024, 22:54. INDICATIONS: Pain FINDINGS: BONES: Minimal curvature of the lumbar spine to the left is present. Amdi-xr-hmemvjds degenerative changes are present. There is no evidence of subluxation. There is chronic anterior wedging at L1. DISC SPACES: Disc space narrowing is present at the L4-5 level. There is minimal anterolisthesis. PARASPINOUS: Calcification of the aorta is present without aneurysmal dilatation. OTHER: Negative. CONCLUSION: 1. Degenerative changes are present with disc space narrowing at the L4-5 level. Dictated by: Jenny Gonzalez MD on 05/20/2024 at 12:26 Approved by: Jenny Gonzalez MD on 05/20/2024 at 12:29 Normal [facility] ED MED ADMINISTRATION DETAIL on 05-06-2024 ED MED ADMINISTRATION DETAIL [employer] Installer Medication Administration Record [address] [address] [id number] 05/05/2024 Patient: VICKIE BLUE Sex: Female : 1940 Age: 83y MEASUREMENTS: Wt: 72.6 kg, Ht/Jerry: 66.0 in, BMI: 25.82 ALLERGIES: Keflex, Talwin, Tequin, lovastatin, pentazocine Medication Ordered Medication Administration Date/Time Aspirin PO Chew 21:05/05 Aspirin PO Chew 324 mg given. Allergies verified and Given 324 mg (NOW x1) confirmed 5 rights. Information reviewed with patient including 05/05/2024 reason for taking this medication. Verbalizes understanding. - Ceasar Raymundo R.N. : Ceasar Raymundo R.N. Scanned 1 of 1 Normal [facility] ED NURSES CLINICAL NOTEon ED NURSES CLINICAL NOTE Nurse Narrative Nurse Clinical Narrative [address] [place] [address] [id number] 05/05/2024 Patient: VICKIE BLUE Sex: Female : 1940 Age: 83y Disposition: Observation to Med/Surg Disposition Decision Time: 00:13 05/06/2024 Departure Time: 00:57 05/06/2024 TRIAGE Arrived by private vehicle. Historian: patient. Accompanied by family and son. Primary physician (Judy Stoner). Primary care physician not notified of patient's arrival. Triage time: 21:11 05/05/2024. Acuity: LEVEL 2. Chief Complaint: CHEST PAIN and LEFT ARM PAIN (burning). Onset. (about 1 weeks). ( SOB yesterday). The patient has had difficulty breathing. No nausea, vomiting, fever or cough. -- 21:17 05/05/24 ANTHOYN Grant R.N. 21:11 05/05/24. SEPSIS SCREEN: NEGATIVE. SIRS criteria negative. -- 21:18 05/05/24 ANTHONY Grant R.N. 21:15 05/05/24. BP: 168/78 MAP: 108. HR: 68. RR: 15. O2 saturation: 95% on room air. Temperature: 98.4 F (temporal). Pain level now 8/10. Describes the pain as burning. -- 21:16 05/05/24 ANTHONY Grant R.N. Measurements: 21:05/05/24 Wt: 72.6 kg, Ht/Jerry: 66.0 in, BMI: 25.82 -- :05/05/24 ANTHONY Grant R.N. Medications: aspirin 81 mg chewable tablet: 1 tablet once a day. -- :05/05/24 ANTHONY Grant R.N. Slow-Mag 71.5 mg tablet,delayed release: 2 tablet twice a day. -- :05/05/24 ANTHONY Grant R.N. 1 of 5 Nurse Narrative Oyster Shell Calcium-500 500 mg (as carbonate 1,250 mg) tablet: 1 tablet twice a day. -- :05/05/24 ANTHONY Grant R.N. ergocalciferol (vitamin D2) 1,250 mcg (50,000 unit) capsule: 1 capsule Every other week. (Per pt med list) -- 05/05/24 ANTHONY Grant R.N. carvedilol 12.5 mg tablet: TAKE 1 TABLET BY MOUTH TWICE DAILY -- 05/05/24 ANTHONY Grant R.N. bupropion HCl SR 150 mg tablet,12 hr sustained-release: TAKE 1 TABLET BY MOUTH ONCE DAILY -- 05/05/24 ANTHONY Grant R.N. atorvastatin 80 mg tablet: TAKE 1 TABLET BY MOUTH ONCE DAILY -- 05/05/24 ANTHONY Grant R.N. amlodipine 2.5 mg tablet: TAKE 1 TABLET BY MOUTH ONCE DAILY -- 05/05/24 ANTHONY Grant R.N. lidocaine 5 % topical patch: APPLY 1 PATCH TOPICALLY EVERY 12 HOURS ON AND OFF -- 05/05/24 ANTHONY Grant R.N. hydrocodone 5 mg-acetaminophen 325 mg tablet: TAKE ONE TABLET BY MOUTH UP TO THREE TIMES DAILY NEEDED FOR PAIN -- 05/05/24 ANTHONY Grant R.N. losartan 25 mg tablet: TAKE 1 TABLET BY MOUTH ONCE DAILY -- 05/05/24 ANTHONY Grant R.N. nitroglycerin 0.4 mg sublingual tablet: DISSOLVE ONE TABLET UNDER THE TONGUE EVERY 5 MINUTES NEEDED FOR CHEST PAIN -- 21:36 05/05/24 ANTHONY Grant R.N. albuterol sulfate HFA 90 mcg/actuation aerosol inhaler: INHALE 2 PUFFS BY MOUTH EVERY 4 HOURS NEEDED -- 21:36 05/05/24 ANTHONY Grant R.N. famotidine 40 mg tablet: TAKE 1 TABLET BY MOUTH TWICE DAILY -- 21:36 05/05/24 EST Rosanne Grant R.N. Spiriva with HandiHaler 18 mcg and inhalation capsules: INHALE 1 CAPSULE VIA ORAL INHALATION DAILY BY INHALING THE CONTENTS OF THE CAPSULE USING THE HANDIHALER DEVICE -- 21:36 05/05/24 ANTHONY Grant R.N. Allergies: pentazocine: rash -- 21:37 05/05/24 ANTHONY Grant R.N. lovastatin: rash -- 21:38 05/05/24 EST Rosanne Grant R.N. Tequin -- 21:38 05/05/24 EST Rosanne Grant R.N. Keflex -- 21:38 05/05/24 EST Rosanne Grant R.N. Talwin -- 21:38 05/05/24 EST Rosanne Grant R.N. Problems: Hypercholesterolemia -- 21:20 05/05/24 ANTHONY Grant R.N. Hypertension -- 21:20 05/05/24 ANTHONY Grant R.N. Hypomagnesemia -- 21:20 05/05/24 EST Rosanne Grant R.N. Depression -- 21:23 05/05/24 EST Rosanne Grant R.N. Anxiety disorder -- 21:23 05/05/24 ANTHONY Grant R.N. COPD - Chronic Obstructive Pulmonary Disease -- 21:23 05/05/24 ANTHONY Grant R.N. 2 of 5 Nurse Narrative Gastroesophageal Reflux Disease -- 21:23 05/05/24 ANTHONY Grant R.N. Hypothyroidism -- 21:23 05/05/24 EST Rosanne Grant R.N. Renal Failure. Stage 3 CKD -- 05/05/24 EST Rosanne Grant R.N. ADDITIONAL SURGERIES: Cardiac Catheterization. 2 Stents placed -- 05/05/24 EST Rosanne Grant R.N. Gallbladder Surgery -- :05/05/24 EST Rosanne Grant R.N. Hip Surgery. Bilateral -- 05/05/24 EST Rosanne Grant R.N. Cataract Surgery. Bilateral -- 05/05/24 EST Rosanne Grant R.N. Tubal Ligation -- 05/05/24 EST Rosanne Grant R.N. History 21:05/05/24. SOCIAL HX: Never smoker. No alcohol use or drug use. The patient has not traveled outside the [place] Infectious disease exposure: No infectious disease exposure. ABUSE ASSESSMENT: The patient answered "yes" to the question(s) "Do you feel safe in your home?" and "no" to the question(s) "Are you afraid to go home?". SELF HARM ASSESSMENT: Self harm assessment was performed. The patient ans (more content not included)... Normal [facility] ED ORDER SHEET (CPOE ONLY)on 05-06-2024 ED ORDER SHEET (CPOE ONLY) Order Sheet Order Sheet [address] [place] [id number] 05/05/2024 Patient: VICKIE BLUE Sex: Female : 1940 Age: 83y MEASUREMENTS: Wt: 72.6 kg, Ht/Jerry: 66.0 in, BMI: 25.82 ALLERGIES: Keflex, Talwin, Tequin, lovastatin, pentazocine MEDICATION/IV/DRIP/FL UID ORDERS Order Description Priority Entered Acknowledged Completed Aspirin PO [id number] mg (NOW 21:13 05/05/2024 21:24 21:27 x1) Chantale Hernández D.O. 05/05/2024 05/05/2024 Ceasar Gant R.N. RFran LAB ORDERS Order Description Priority Entered Acknowledged Collected Completed CBC w Diff Stat Stat 21:13 05/05/2024 21:24 05/05/2024 21:54 05/05/2024 Wolf Leigh Anne Rutt, R.N. R.N. BNP Stat Stat 21:13 05/05/2024 21:24 05/05/2024 21:54 05/05/2024 Wolf Leigh Anne Rutt, R.N. R.N. CMP Stat Stat 21:13 05/05/2024 21:24 05/05/2024 21:54 05/05/2024 Wolf Leigh Anne Rutt, R.N. R.NWai 1 of 3 Order Sheet Troponin-I Stat Stat 21:13 05/05/2024 21:24 05/05/2024 21:55 05/05/2024 Wolf Leigh Anne Rutt, R.N. R.NWai D-Dimer Stat Stat 21:13 05/05/2024 21:24 05/05/2024 21:55 05/05/2024 Wolf Leigh Anne Rutt, R.N. R.NWai EKG - ED Stat Stat 21:13 05/05/2024 21:24 05/05/2024 21:54 05/05/2024 Wolf Leigh Anne Rutt, R.N. R.N. Lipase Stat Stat 21:13 05/05/2024 21:24 05/05/2024 21:55 05/05/2024 Wolf Leigh Anne Rutt, R.Tracey R.N. CRP Stat Stat 21:13 05/05/2024 21:24 05/05/2024 21:54 05/05/2024 Wolf Leigh Anne Rutt, R.Tracey R.N. Troponin-I Stat Stat 23:15 05/05/2024 23:57 05/05/2024 23:57 05/05/2024 Wolf Leigh R.Tracey Richey Rutt, RFran DIAGNOSTIC STUDY ORDERS Order Description Priority Entered Acknowledged Completed Chest 1V Stat Stat 21:13 05/05/2024 21:24 21:55 Chantale Hernández D.O. 05/05/2024 05/05/2024 Rossi Gant R.N. R.NWai Order Comments: 21:13 05/05/2024: Status: Not . Chantale Hernández D.O. Reason for Study: Chest Pain CT Chest PE Study Stat Stat 22:39 05/05/2024 22:54 23:57 Chantale Hernández D.O. 05/05/2024 05/05/2024 Rossi Marcano R.N. RFran 2 of 3 Order Sheet Reason for Study: Chest Pain STAFF ORDERS Order Description Priority Entered Acknowledged Collected Completed Obtain Old EKG 21:13 05/05/2024 21:24 05/05/2024 23:57 05/05/2024 Wolf Leigh Anne Rutt, R.N. R.N. Oxygen titrate to 92% 21:13 05/05/2024 21:24 05/05/2024 21:55 05/05/2024 Wolf Leigh Anne Rutt, R.N. R.N. Telegraph Equipment Maintainer 21:13 05/05/2024 21:24 05/05/2024 21:55 05/05/2024 Wolf Leigh Anne Rutt, R.N. R.N. Vital signs every 15 21:13 05/05/2024 21:24 05/05/2024 21:55 05/05/2024 minutes Wolf Leigh Anne Rutt, R.N. R.N. IV Saline Lock 21:13 05/05/2024 21:24 05/05/2024 21:55 05/05/2024 Wolf Leigh Anne Rutt, R.N. R.NWai [Electronically signed by Chantale Hernández D.O. (05/06/2024 03:42 EST)] 3 of 3 Normal [facility] ED PHYSICIAN CLINICAL REPORT on 05-06-2024 ED PHYSICIAN CLINICAL REPORT Narrative Physician Clinical Narrative [place] [address] [place] [address] [phone] 05/05/2024 Patient: VICKIE BLUE Sex: Female : 1940 Age: 83y Disposition: Observation to Med/Surg Disposition Decision Time: 00:13 05/06/2024 Departure Time: 00:57 05/06/2024 Measurements Wt: 72.6 kg, Ht/Jerry: 66.0 in, BMI: 25.82 Initial Vital Sign Measured Time BP MAP HR RR O2Sat ETCO2 Temp Pain GCS RTS 21:10 05/05/2024 168/78 95 68 Time Seen: 21:11 05/05/2024. Historian- patient. HISTORY OF PRESENT ILLNESS Chief Complaint: CHEST PAIN. It is described as located in the central chest and left chest area. This started 1 weeks. At its maximum, severity described as moderate. When seen in the E.D., it was almost gone. No nausea, vomiting or diaphoresis. The patient has had difficulty breathing. Similar symptoms previously. Patient has had similar symptoms several times. Recent medical care: Not recently seen/assessed. REVIEW OF SYSTEMS CVS: No pedal edema or calf pain. CONSTITUTIONAL: No fever or chills. RESPIRATORY: No cough. Status: Not . 1 of 11 Narrative PAST HISTORY See nurses notes. Anxiety disorder COPD - Chronic Obstructive Pulmonary Disease Depression Gastroesophageal Reflux Disease Hypercholesterolemia Hypertension Hypomagnesemia Hypothyroidism Renal Failure: (Stage 3 CKD) Surgeries: Cardiac Catheterization: (2 Stents placed) Cataract Surgery: Body Site Bilateral Gallbladder Surgery Hip Surgery: Body Site Bilateral Tubal Ligation Medications: albuterol sulfate HFA 90 mcg/actuation aerosol inhaler: INHALE 2 PUFFS BY MOUTH EVERY 4 HOURS NEEDED amlodipine 2.5 mg tablet: TAKE 1 TABLET BY MOUTH ONCE DAILY aspirin 81 mg chewable tablet: 1 tablet once a day. atorvastatin 80 mg tablet: TAKE 1 TABLET BY MOUTH ONCE DAILY bupropion HCl SR 150 mg tablet,12 hr sustained-release: TAKE 1 TABLET BY MOUTH ONCE DAILY carvedilol 12.5 mg tablet: TAKE 1 TABLET BY MOUTH TWICE DAILY ergocalciferol (vitamin D2) 1,250 mcg (50,000 unit) capsule: 1 capsule Every other week. (Per pt med list) famotidine 40 mg tablet: TAKE 1 TABLET BY MOUTH TWICE DAILY hydrocodone 5 mg-acetaminophen 325 mg tablet: TAKE ONE TABLET BY MOUTH UP TO THREE TIMES DAILY NEEDED FOR PAIN lidocaine 5 % topical patch: APPLY 1 PATCH TOPICALLY EVERY 12 HOURS ON AND OFF losartan 25 mg tablet: TAKE 1 TABLET BY MOUTH ONCE DAILY nitroglycerin 0.4 mg sublingual tablet: DISSOLVE ONE TABLET UNDER THE TONGUE EVERY 5 MINUTES NEEDED FOR CHEST PAIN Oyster Shell Calcium-500 500 mg (as carbonate 1,250 mg) tablet: 1 tablet twice a day. 2 of 11 Narrative Slow-Mag 71.5 mg tablet,delayed release: 2 tablet twice a day. Spiriva with HandiHaler 18 mcg and inhalation capsules: INHALE 1 CAPSULE VIA ORAL INHALATION DAILY BY INHALING THE CONTENTS OF THE CAPSULE USING THE HANDIHALER DEVICE Allergies: Keflex lovastatin: rash pentazocine: rash Vannessa Stokes SOCIAL HISTORY Never smoker. No alcohol use or drug use. ADDITIONAL NOTES The nursing notes have been reviewed. PHYSICAL EXAM Appearance: Alert. Oriented X3. Eyes: Pupils equal, round and reactive to light. ENT: Nose normal. Pharynx normal. Neck: Normal inspection. Neck supple. CVS: Normal heart rate and rhythm. Heart sounds normal. Respiratory: No respiratory distress. Breath sounds normal. Chest nontender. Abdomen: Soft and nontender. Bowel sounds normal. Skin: Skin warm and dry. Extremities: Extremities exhibit normal ROM. No lower extremity edema. Neuro: Oriented X 3. No motor deficit. No sensory deficit. LABS, X-RAYS, AND EKG 12-LEAD EKG: EKG time: 21:07 05/05/2024. Normal sinus rhythm. Rate: 67. Normal P waves. Normal QRS complex. Normal axis. Normal ST and T waves. The study has been interpreted contemporaneously by me. The EKG appears to be a good tracing. Interpretation time: 21:08 05/05/2024. Chest X-ray: No acute disease. (Chest x-ray by my reading shows chronic interstitial changes but no acute infiltrate.). Views: PA. Interpretation time: 21:57 05/05/2024. 3 of [address]: Lungs normal. Great vessels normal. No acute disease. (No pulmonary embolus. No thoracic aortic aneurysm, dissection or acute aortic abnormality. No focal consolidation, pleural effusion or pneumothorax. No cardiomegaly. No pericardial effusion. No acute abnormality in the visualized upper abdomen. 1.2 cm hypodense nodule in the right thyroid gland. Recommend nonemergent thyroid ultrasound for further evaluation. Moderate L1 inferior plate compression fracture of indeterminate age, possibly chronic.). Interpretation time: 23:14 05/05/2024. Laboratory Tests: C-REACTIVE PROTEIN Final WILIAN: 05/05/2024 21:16:00 EST MsgRcvd: 05/05/2024 22:08 EST Lab Test Result Refe (more content not included)... Normal [facility] ED SUPER BILLon 05-06-2024 ED SUPER BILL [address] [address] [id number] 05/05/2024 Patient: VICKIE BLUE Sex: Female : 1940 Age: 83y Professional Category Item Description Facility Code Code Quantity Fee Total Nurse/E/M EMERGENCY 832607 1 $0.00 $0.00 DEPT VISIT HIGH SEVERITYFUNCJ (73299-10) Grand Total $0.00 Providers Chantale Hernández D.O. Chief Complaint CHEST PAIN. Principal Diagnosis Precordial chest pain. ICD-10 Codes R07.2: Precordial pain 1 of 1 Normal [facility] ED VISIT SUMMARYon ED VISIT SUMMARY Visit Overview Visit Overview [address] [address] [id number] 05/05/2024 Patient: VICKIE BLUE Sex: Female : 1940 Age: 83y 05/06/2024 03:42 AM EST ED Arrival:21:04 05/05/2024 EST Status:not Recent Travel:no Language:eng Adv Directive:No Isolation Status: Ethnicity:N Fall Risk:risk Infectious Disease Exposure:no Measurements:5'6" / 167.6 Self-Harm Status:risk Sepsis Screen:negative cm 160.0 lb / 72.6 kg Chief Complaint:CHEST PAIN, LEFT ARM PAIN, (about 1 weeks), (burning), (Judy Midel), and (SOB yesterday) ALLERGIES Keflex lovastatin - rash pentazocine - rash Talwin Tequin HOME MEDICATIONS 1 of 4 Visit Overview albuterol sulfate HFA 90 mcg/actuation aerosol inhaler: INHALE 2 PUFFS BY MOUTH EVERY 4 HOURS NEEDED amlodipine 2.5 mg tablet: TAKE 1 TABLET BY MOUTH ONCE DAILY aspirin 81 mg chewable tablet: 1 tablet once a day. atorvastatin 80 mg tablet: TAKE 1 TABLET BY MOUTH ONCE DAILY bupropion HCl SR 150 mg tablet,12 hr sustained-release: TAKE 1 TABLET BY MOUTH ONCE DAILY carvedilol 12.5 mg tablet: TAKE 1 TABLET BY MOUTH TWICE DAILY ergocalciferol (vitamin D2) 1,250 mcg (50,000 unit) capsule: 1 capsule Every other week. (Per pt med list) famotidine 40 mg tablet: TAKE 1 TABLET BY MOUTH TWICE DAILY hydrocodone 5 mg-acetaminophen 325 mg tablet: TAKE ONE TABLET BY MOUTH UP TO THREE TIMES DAILY NEEDED FOR PAIN lidocaine 5 % topical patch: APPLY 1 PATCH TOPICALLY EVERY 12 HOURS ON AND OFF losartan 25 mg tablet: TAKE 1 TABLET BY MOUTH ONCE DAILY nitroglycerin 0.4 mg sublingual tablet: DISSOLVE ONE TABLET UNDER THE TONGUE EVERY 5 MINUTES NEEDED FOR CHEST PAIN Oyster Shell Calcium-500 500 mg (as carbonate 1,250 mg) tablet: 1 tablet twice a day. Slow-Mag 71.5 mg tablet,delayed release: 2 tablet twice a day. Spiriva with HandiHaler 18 mcg and inhalation capsules: INHALE 1 CAPSULE VIA ORAL INHALATION DAILY BY INHALING THE CONTENTS OF THE CAPSULE USING THE HANDIHALER DEVICE PAST MEDICAL HISTORY / PROBLEMS Anxiety disorder COPD - Chronic Obstructive Pulmonary Disease Depression Gastroesophageal Reflux Disease Hypercholesterolemia Hypertension Hypomagnesemia Hypothyroidism Renal Failure. Stage 3 CKD See nurses notes PAST SURGICAL HISTORY Cardiac Catheterization. 2 Stents placed Cataract Surgery. Bilateral 2 of 4 Visit Overview Gallbladder Surgery Hip Surgery. Bilateral Tubal Ligation SOCIAL HISTORY Smoking status: No Alcohol use: No Drug use: No ED COURSE MEDICATIONS GIVEN IN EMERGENCY DEPARTMENT 21:27 05/05/24 Aspirin PO Chew 324 mg IV SITE INFORMATION 21:18 05/05/24 Site #1 left AC, 20g. Saline lock. INTAKE OUTPUT REASSESMENT (most recent) 21:31 05/05/24. GENERAL / NEURO / PSYCH: ( pt endorses intermittent left arm/.shoulder pain). VITAL SIGNS First Vitals Last Vitals Temp 21:10 05/05/24 Temp 00:41 05/06/24 BP 21:10 05/05/24 168/78 BP 00:41 05/06/24 HR 21:10 05/05/24 68 HR 00:41 05/06/24 61 RR 21:10 05/05/24 RR 00:41 05/06/24 O2 Sat 21:10 05/05/24 O2 Sat 00:41 05/06/24 94% Pain 21:10 05/05/24 Pain 00:41 05/06/24 ETCO2 21:10 05/05/24 ETCO2 00:41 05/06/24 GCS 21:10 05/05/24 GCS 00:41 05/06/24 RTS 21:10 05/05/24 RTS 00:41 05/06/24 PROCEDURES 3 of 4 Visit Overview NURSING INTERVENTIONS LABS / STUDIES LABS / STUDIES ORDERED BNP CBC w Diff Chest 1V CMP CRP CT Chest PE Study D-Dimer EKG - ED Lipase Troponin-I Troponin-I CLINICAL IMPRESSION PRECORDIAL CHEST PAIN 4 of 4 Normal [facility] ED VITALS FLOW SHEETon 05-06 ED VITALS FLOW SHEET Vitals Vital Sign Flow Sheet [address] [address] [id number] 05/05/2024 Patient: VICKIE BLUE Sex: Female : 1940 Age: 83y Measurements Wt: 72.6 kg, Ht/Jerry: 66.0 in, BMI: 25.82 Measured Time BP MAP HR RR O2Sat ETCO2 Temp Pain GCS RTS 00:41 05/06/2024 61 94% 00:40 05/06/2024 136/75 91 72 00:36 05/06/2024 58 94% 00:31 05/06/2024 73 92% 00:26 05/06/2024 68 94% 00:21 05/06/2024 58 95% 00:16 05/06/2024 66 94% 00:11 05/06/2024 60 95% 00:10 05/06/2024 135/78 97 70 00:06 05/06/2024 72 95% 00:01 05/06/2024 59 94% 23:56 05/05/2024 63 93% 23:51 05/05/2024 67 94% 23:46 05/05/2024 84 93% 23:41 05/05/2024 56 94% 1 of 3 Vitals Measured Time BP MAP HR RR O2Sat ETCO2 Temp Pain GCS RTS 23:40 05/05/2024 130/67 88 72 23:36 05/05/2024 59 95% 23:31 05/05/2024 63 96% 23:26 05/05/2024 61 95% 23:21 05/05/2024 63 97% 23:16 05/05/2024 62 96% 23:11 05/05/2024 74 96% 23:10 05/05/2024 148/73 98 74 23:06 05/05/2024 82 96% 22:46 05/05/2024 68 95% 22:41 05/05/2024 60 96% 22:40 05/05/2024 139/118 125 65 22:36 05/05/2024 70 89% 22:31 05/05/2024 48 96% 22:11 05/05/2024 78 96% 22:10 05/05/2024 135/75 95 66 22:06 05/05/2024 72 95% 22:01 05/05/2024 63 96% 21:56 05/05/2024 71 97% 21:55 05/05/2024 146/77 107 66 21:51 05/05/2024 72 97% 21:46 05/05/2024 73 96% 21:41 05/05/2024 149/77 101 66 21:41 05/05/2024 57 96% 21:36 05/05/2024 71 97% 2 of 3 Vitals Measured Time BP MAP HR RR O2Sat ETCO2 Temp Pain GCS RTS 21:31 05/05/2024 70 97% 21:26 05/05/2024 71 95% 21:25 05/05/2024 164/73 103 67 21:21 05/05/2024 72 96% 21:16 05/05/2024 67 95% 21:15 05/05/2024 168/78 108 68 15 95% RA 98.4 F 8 21:11 05/05/2024 68 95% 21:10 05/05/2024 168/78 95 68 3 of 3 Normal [facility] LIPID PROFILEon 05-06-2024 Cholesterol [Mass/Vol] 105 mg/dL Normal 0 - 240 [facility] Comment on above: Performed By: #### 2 [id number] #### [facility],[address] [place] [address] Cholesterol in HDL [Mass/Vol] 57 mg/dL Normal 40 - 60 [facility] Comment on above: Performed By: #### 2 78089 #### [facility],[address] [place] [address] Cholesterol in LDL [Mass/Vol] 37 mg/dL Normal 0 - 129 [facility] Comment on above: Performed By: #### 2 38552 #### [facility],[address] [place] [address] Cholesterol.total/C holesterol in HDL [Mass ratio] 1.8 {ratio} Normal 0.0 - 5.0 [facility] Comment on above: Performed By: #### 2 48420 #### [facility],[address] [place] [address]23 Lipid 1996 panel Normal [facility] Comment on above: Result Comment: LIPI D PROFILE Performed By: #### 2 50892 #### [facility],[address] [place] [address] Triglyceride [Mass/Vol] 57 mg/dL Normal 0 - 150 [facility] Comment on above: Performed By: #### 2 41522 #### [facility],[address] [place] [address] NM CARDIAC STRESS (SPECT) W/ LEXISCANon 05-06-2024 NM CARDIAC STRESS (SPECT) W/[place] [address] Patient: VICKIE BLUE Phone#: : 1940 Age: 83 Gender: F Pt. Type: Out Account: [id number] Location: 010 Ordering: DR. RANDI BARNETT Exam Date: 05/06/2024/7:41 Family Phys: JUDY MCKEESURIALEXANDRA Charge Code: [id number] Physician: Kleberg Order #: [id number] Dose#: PROCEDURE: CARDIAC STRESS SPECT WITH LEXISCAN HISTORY: Hx heart attack and stents 03/2020, and previous stents 2006. COMPARISON: None. INDICATIONS: Chest pain TECHNIQUE: Resting and post Lexiscan stress SPECT images acquired in the horizontal long, vertical long and short axis views. Protocol: Lexiscan Duration: 0.4mg over 10 seconds Peak Heart Rate: 100 bpm, which is 73% of maximum predicted heart rate. Workload: not applicable REST DOSE: 11.9 mCi Sestamibi. STRESS DOSE: 34.1 mCi Sestamibi. INTERPRETATION: Resting Images: Resting images showed mild perfusion defect in the basal to mid inferoseptal wall. Post Lexiscan stress Images: Stress images showed mild perfusion defect in the basal to mid inferoseptal wall mildly worse from resting images. There is no associated wall motion abnormality to suggest infarct. There is noted subdiaphragmatic attenuation artifact adjacent to the inferoseptal wall seen in both rest and stress images. Gated SPECT/wall motion: Calculated ejection fraction is 62%. There are no regional wall motion abnormality seen. TID ratio is 0.90 CONCLUSION: 1. Nuclear stress test cannot entirely rule out small area of ischemia in the inferoseptal wall due to attenuation artifact. 2. Calculated ejection fraction is 62% with normal wall motion. 3. TID ratio is normal. Continued Report - Page 2 of 2 Patient: VICKIE BLUE Phone#: : 1940 Age: 83 Gender: F Pt. Type: Out Account: [id number] Location: 010 Ordering: DR. RANDI BARNETT Exam Date: 05/06/2024/7:41 Family Phys: JUDY MCKEEMARTA Charge Code: [id number] Physician: Kleberg Order #: [id number] Dose#: Dictated by: DAR DUMAS MD on 05/06/2024 at 10:50 Approved by: DAR DUMAS MD on 05/06/2024 at 11:06 Normal [facility] NM EXERCISE STRESS TEST (W/C ARDIAC STUDYon 05-06-2024 NM EXERCISE STRESS TEST (W/CARDIAC STUDY [place] [address] Patient: VICKIE BLUE Phone#: : 1940 Age: 83 Gender: F Pt. Type: Out Account: [id number] Location: [facility] Ordering: DR. RANDI BARNETT Exam Date: 05/06/2024/7:41 Family Phys: JUDY ERWIN Charge Code: [id number] Physician: Kleberg Order #: [id number] Dose#: PROCEDURE: ELECTROCARDIOGRAM STRESS TEST HISTORY: Hx heart attack and stents 03/2020, and previous stents 2006. COMPARISON: None. INDICATIONS: Chest pain TECHNIQUE: Electrocardiogram stress test was performed using the protocol listed below. STRESS RESULTS: Protocol: Lexiscan Duration: 0.4mg over 10 seconds Resting Heart Rate: 69 bpm. Resting Blood Pressure: 134/82 mmHg Peak Heart Rate: 100 which is 73% of maximum predicted heart rate Blood pressure with Lexiscan With Lexiscan infusion blood pressure decreased to102/81 Workload: 1.00 METs. Symptoms with stress: Patient complained of shortness of breath with regadenoson which improved during recovery. EKG Data EKG at Baseline: EKG at baseline showed sinus rhythm at 70 BPM with occasional PVCs. EKG with Stress: EKG with stress showed sinus rhythm at 91 BPM with frequent monomorphic PVCs. There are no ST or T-wave changes from baseline to suggest inducible ischemia. CONCLUSION: 1. Patient complain of shortness of breath with regadenoson which improved during recovery. 2. Patient had appropriate heart rate and blood pressure response with stress 3. Stress EKG is negative for inducible ischemia. Patient had frequent monomorphic PVCs with stress which improved on it recovery. 4. Nuclear images will be reported separately. [place] [address] Patient: VICKIE BLUE Phone#: : 1940 Age: 83 Gender: F Pt. Type: Out Account: [id number] Location: [facility] Ordering: DR. RANDI BARNETT Exam Date: 05/06/2024/7:41 Family Phys: JUDY ERWIN Charge Code: [id number] Physician: Kleberg Order #: [id number] Dose#: Dictated by: DAR DUMAS MD on 05/06/2024 at 10:01 Approved by: DAR DUMAS MD on 05/06/2024 at 10:49 Normal [facility] TROPONINon 05-06-2024 HS TROPONIN 43.2 pg/mL Normal 0.0 - 51.4 [facility] Comment on above: Performed By: #### 2 86019 #### [facility],[address] [place] [address] TROPONIN I, HIGH SENSITIVITY on 05-06-2024 HS TROPONIN 42.2 pg/mL Normal 0.0 - 51.4 [facility] Comment on above: Performed By: #### 2 00847 ####[facility],[address] [place] [address]20 C-REACTIVE PROTEINon 025 CRP [Mass/Vol] mg/L Normal 0.00 - 0.90 [facility] Comment on above: Performed By: #### 2 70203 #### [facility],[address] [place] [address] CBC + DIFFon 05-05-2024 Baso # 0.02 x10EE3/UL Normal 0.00 - 0.10 [facility] Comment on above: Performed By: #### 2 39388 #### [address] [address] Basophils/100 WBC (Bld) 0.4 % Normal 0.0 - 2.0 [facility] Comment on above: Performed By: #### 2 28031 #### [place] [address] CBC + DIFF Normal [facility] Comment on above: Result Comment: CBC- COMPLETE BLOOD COUNT Performed By: #### 2 53802 #### [place] [address] EO # 0.09 x10EE3/UL Normal 0.00 - 0.50 [facility] Comment on above: Performed By: #### 2 41751 #### [place] [address] Eosinophils/100 WBC (Bld) 1.7 % Normal 0.0 - 7.0 [facility] Comment on above: Performed By: #### 2 28988 #### [place] [address] Erythrocyte distribution width (RBC) [Ratio] 13.3 % Normal 12.0 - 15.6 [facility] Comment on above: Performed By: #### 2 40558 #### [place] [address] Hematocrit (Bld) [Volume fraction] 34.9 % Normal 34.0 - 46.0 [facility] Comment on above: Performed By: #### 2 73370 #### [place] [address] Hemoglobin (Bld) [Mass/Vol] 11.9 g/dL Low 12.0 - 16.0 [facility] Comment on above: Performed By: #### 2 35931 #### [place] [address] Lymph # 2.05 x10EE3/UL Normal 0.80 - 2.80 [facility] Comment on above: Performed By: #### 2 75063 #### [facility],[address] [place] [address] Lymphocytes/100 WBC (Bld) 39.7 % Normal 20.0 - 45.0 [facility] Comment on above: Performed By: #### 2 94010 #### [facility],[address] [place] [address] MANUAL DIFF N/A Normal [facility] Comment on above: Performed By: #### 2 35825 #### [facility],[address] [place] [address] MCH (RBC) [Entitic mass] 34 pg High 27 - 33 [facility] Comment on above: Performed By: #### 2 82084 #### [facility],[address] [place] [address] MCHC 34 X10 3 Normal 32 - 36 [facility] Comment on above: Performed By: #### 2 22323 #### [facility],[address] [place] [address] MCV (RBC) [Entitic vol] 100 fL High 80 - 99 [facility] Comment on above: Performed By: #### 2 76899 #### [facility],[address] [place] [address] [place] # 0.57 x10EE3/UL Normal 0.20 - 1.00 [facility] Comment on above: Performed By: #### 2 22486 #### [facility],[address] [place] [address] MONOS % 11.0 % High 0.0 - 10.0 [facility] Comment on above: Performed By: #### 2 84138 #### [place] [address] Morphology Haris (Bld) [Interp] N/A Normal [facility] Comment on above: Performed By: #### 2 72871 #### [facility],[address],[place] [address] Neut # 2.44 x10EE3/UL Normal 1.50 - 7.10 [facility] Comment on above: Performed By: #### 2 88820 #### [facility],[address] [place] [address]01 Neutrophils/100 WBC (Bld) 47.2 % Normal 46.0 - 76.0 [facility] Comment on above: Performed By: #### 2 24536 #### [facility],[address] [place] [address] 77715 PLATELET 189 x10EE3/UL Normal 150 - 450 [facility] Comment on above: Performed By: #### 2 97348 #### [facility],[address] [place] [address] 37935 Platelet mean volume (Bld) [Entitic vol] 7.3 fL Normal 6.6 - 10.5 [facility] Comment on above: Result Comment: AUTO MATED DIFFERENTIAL Performed By: #### 2 98434 #### [facility],[address] [place] [address] 87848 RBC 3.49 x 10EE6/UL Low 4.10 - 5.30 [facility] Comment on above: Performed By: #### 2 44694 #### [facility],[address] [place] [address] 26658 WBC 5.2 x 10EE3/UL Normal 4.5 - 10.8 [facility] Comment on above: Performed By: #### 2 56948 #### [facility],[address] [place] [address] 34079 CHEST 1 VIEWon 05-05-2024 CHEST 1 VIEW [place] [address] Patient: VICKIE BLUE Phone#: : 1940 Age: 83 Gender: F Pt. Type: ER Account: [id number] Location: [facility] Ordering: CHANTALE HERNÁNDEZ Exam Date: 05/05/2024/21:39 Family Phys: JUDY ERWIN Charge Code: [id number] Physician: Kleberg Order #: [id number] Dose#: PROCEDURE: X-RAY CHEST 1 VIEW COMPARISON: [facility], XR, CHEST 1 VIEW, 05/22/2023, 16:04. INDICATIONS: Chest pain. FINDINGS: LUNGS: Chronic interstitial changes are present. The lungs are mildly hyperinflated. No significant pulmonary parenchymal abnormalities. VASCULATURE: Normal. Unremarkable pulmonary vasculature. CARDIAC: Normal. No cardiac silhouette abnormality or cardiomegaly. MEDIASTINUM: Normal. No visible mass or adenopathy. PLEURA: Normal. No effusion or pleural thickening. BONES: Normal. No fracture or visible bony lesion. OTHER: Negative. CONCLUSION: 1. There is no evidence of acute pulmonary abnormality. Dictated by: Jenny Gonzalez MD on 05/06/2024 at 9:26 Approved by: Jenny Gonzalez MD on 05/06/2024 at 9:37 Normal [facility] CMP with eGFRon 05-05-2024 AGE 83 years Normal [facility] Comment on above: Performed By: #### 2 05755 #### [facility],[address] [place] [address] 34748 Albumin [Mass/Vol] 3.2 g/dL Low 3.4 - 5.0 [facility] Comment on above: Performed By: #### 2 55518 #### [facility],[address] [place] [address] 22659 Albumin/Globulin [Mass ratio] 1.0 {ratio} Normal 0.9 - 1.6 [facility] Comment on above: Performed By: #### 2 48580 #### [facility],[address] [place] [address] 28635 ALK PHOS 62 U/L Normal 46 - 116 [facility] Comment on above: Performed By: #### 2 00610 #### [facility],[address] [place] [address] 31039 ALT [Catalytic activity/Vol] 27 U/L Normal 16 - 63 [facility] Comment on above: Performed By: #### 2 59059 #### [facility],[address] [place] [address] 33124 Anion gap [Moles/Vol] 8 mmol/L Low 10 - 20 [facility] Comment on above: Performed By: #### 2 19229 #### [facility],[address] [place] [address] 94947 AST [Catalytic activity/Vol] 28 U/L Normal 13 - 39 [facility] Comment on above: Performed By: #### 2 29726 #### [facility],[address] [place] [address] 67714 B/C RATIO 10 ratio Normal 0 - 30 [facility] Comment on above: Performed By: #### 2 12348 #### [facility],[address] [place] [address] 88128 Bilirubin [Mass/Vol] 0.4 mg/dL Normal 0.2 - 1.0 [facility] Comment on above: Performed By: #### 2 50722 #### [facility],[address] [place] [address] 87832 Calcium [Mass/Vol] 9.2 mg/dL Normal 8.5 - 10.1 [facility] Comment on above: Performed By: #### 2 13217 #### [facility],[address] [place] [address] 10470 Chloride [Moles/Vol] 104 mmol/L Normal 98 - 107 [facility] Comment on above: Performed By: #### 2 95838 #### [facility],[address] [place] [address] 05962 CMP with eGFR Normal [facility] Comment on above: Result Comment: COMP REHENSIVE METABOLIC PANEL Performed By: #### 2 51560 #### [facility],[address] [place] [address] 14251 CO2 [Moles/Vol] 32.1 mmol/L High 21.0 - 32.0 [facility] Comment on above: Performed By: #### 2 34317 #### [facility],[address] [place] [address] Creatinine [Mass/Vol] 1.51 mg/dL High 0.55 - 1.02 [facility] Comment on above: Performed By: #### 2 04369 #### [facility],[address] [place] [address] eGFR 33 ML/MINUTE Low 60 - 999 [facility] Comment on above: Performed By: #### 2 60567 #### [facility],[address] [place] [address] eGFR(AA) 40 ML/MINUTE Low 60 - 999 [facility] Comment on above: Result Comment: ACCO RDING TO THE NATIONAL KIDNEY DISEASE EDUCATION PROGRAM(NKDE), A NORMAL eGFR IS A VALUE GREATER THAN OR EQUAL TO 60 ML/MIN/1.73 SQ METERS. CHRONIC KIDNEY DISEASE: <60mL/MIN/1.73 SQ METERS KIDNEY FAILURE: <15mL/MIN/1.73 SQ METERS THIS TEST SHOULD ONLY BE USED FOR PATIENTS 18 YEARS OF AGE AND OLDER. Performed By: #### 2 70821 #### [facility],[address] [place], [place] [id number] Globulin (S) [Mass/Vol] 3.2 g/dL Normal 1.5 - 3.8 [facility] Comment on above: Performed By: #### 2 97238 #### [facility],[address] [place], [place] [address] Glucose [Mass/Vol] 86 mg/dL Normal 74 - 106 [facility] Comment on above: Performed By: #### 2 28197 #### [facility],[address] [place], [place] [address] Potassium [Moles/Vol] 4.1 mmol/L Normal 3.5 - 5.1 [facility] Comment on above: Performed By: #### 2 56700 #### [facility],[address] [place], [place] [address] Protein [Mass/Vol] 6.4 g/dL Normal 6.4 - 8.2 [facility] Comment on above: Performed By: #### 2 62989 #### [facility],[address] [place] [address] Sodium [Moles/Vol] 140 mmol/L Normal 136 - 145 [facility] Comment on above: Performed By: #### 2 21953 #### [facility],[address] [place] [address] Urea nitrogen [Mass/Vol] 15 mg/dL Normal 7 - 18 [facility] Comment on above: Performed By: #### 2 87844 #### [facility],[address] [place] [address] CT CHEST (PE PROTOCOL)on CT CHEST (PE PROTOCOL) [place] [address] Patient: VICKIE BLUE Phone#: : 1940 Age: 83 Gender: F Pt. Type: ER Account: [id number] Location: [facility] Ordering: CHANTALE HERNÁNDEZ Exam Date: 05/05/2024/22:54 Family Phys: JUDY HERNANDEZALEXANDRA Charge Code: [id number] Physician: Kleberg Order #: [id number] Dose#: [id number] PROCEDURE: CT CHEST WITH CONTRAST FOR PE COMPARISON: [facility], CT, CHEST PE W CON, 09/09/2022, 15:55. INDICATIONS: Chest pain. TECHNIQUE: After obtaining the patient's consent, CT images were obtained with non-ionic intravenous contrast material. Multi-planar images were created to optimize visualization of vascular anatomy with MPR/MIPS and 3D imaging. All CT scans at this facility use dose modulation, iterative reconstruction, and/or weight based dosing when appropriate to reduce radiation dose to as low as reasonably achievable. IV CONTRAST: Visipaque 320,90ml TOTAL DOSE: 4.2 CTDIvol(mGy) FINDINGS: VASCULATURE: Normal. No visible pulmonary arterial thrombus or attenuation. AORTA: Normal. No aneurysm or dissection. LUNGS: Linear atelectasis is present in the left lingula. No visible pulmonary disease. DAVE: Normal. No mass or adenopathy. MEDIASTINUM: An 11 millimeter hypodense focus is present in the right thyroid lobe. CARDIAC: Normal. No enlargement, pericardial thickening, or significant calcification. PLEURA: Normal. No mass or effusion. CHEST WALL: Normal. No mass or axillary adenopathy. LIMITED ABDOMEN: A 3.2 centimeter right renal cyst is present. Liquid stool is present in the colon. BONES: There is deformity of the sternum consistent with remote healed fracture. There is compression of questionable age of the L1 vertebral body. OTHER: Negative. CONCLUSION: 1. There is no evidence of pulmonary embolus. 2. There is no evidence of acute pulmonary abnormality. 3. Hypodense nodule in the right thyroid lobe. [place] [place] [address] Patient: VICKIE BLUE Phone#: : [phone] Age: 83 Gender: F Pt. Type: ER Account: [id number] Location: [facility] Ordering: CHANTALE HERNÁNDEZ Exam Date: 05/05/2024/22:54 Family Phys: JUDY ERWIN Charge Code: 004344 Physician: Kleberg Order #: [id number] Dose#: [id number] Dictated by: Jenny Gonzalez MD on 05/06/2024 at 9:17 Approved by: Jenny Gonzalez MD on 05/06/2024 at 9:24 Normal [facility] D-DIMER, QUANTITATIVEon 01-0 D-DIMER QUANT 299 ng/ml High 0 - 230 [facility] Comment on above: Performed By: #### 2 39348 ####[facility],[address] [place] [address] D-DIMER, QUANTITATIVE Normal [facility] Comment on above: Result Comment: JULIEN T D-DIMER Performed By: #### 2 67259 ####[facility],[address] [place] [address] 97595 LIPASEon 05-05-2024 Lipase [Catalytic activity/Vol] 44.0 U/L Normal 15.0 - 78.0 [facility] Comment on above: Result Comment: *PLE ASE NOTE THAT RANGES FOR LIPASE HAVE CHANGED OF 05/02/23 DUE TO AN ASSAY UPDATE BY THE PRODUCTION CREW SUPERVISOR.THE NEW ASSAY RANGE IS 6-250 U/L, WITH A REFERENCE RANGE OF 16-77 U/L. Performed By: #### 2 51095 #### [place] [address] NT-proBNPon 05-05-2024 Natriuretic peptide B (Bld) [Mass/Vol] 535 pg/mL High 0 - 450 [facility] Comment on above: Performed By: #### 2 29192 #### [place] [address] TROPONINon 05-05-2024 HS TROPONIN 46.0 pg/mL Normal 0.0 - 51.4 [facility] Comment on above: Performed By: #### 2 00518 #### [place] [address] CBC + DIFFon 04-30-2024 Baso # 0.02 x10EE3/UL Normal 0.00 - 0.10 [facility] Comment on above: Performed By: #### 2 59869 ####[place] [address] Basophils/100 WBC (Bld) 0.4 % Normal 0.0 - 2.0 [facility] Comment on above: Performed By: #### 2 36412 ####[place] [address] CBC + DIFF Normal [facility] Comment on above: Result Comment: CBC- COMPLETE BLOOD COUNT Performed By: #### 2 94884 ####[place] [address] EO # 0.12 x10EE3/UL Normal 0.00 - 0.50 [facility] Comment on above: Performed By: #### 2 31463 ####[facility],[address] [place], [place] [address] Eosinophils/100 WBC (Bld) 2.4 % Normal 0.0 - 7.0 [facility] Comment on above: Performed By: #### 2 66325 ####[facility],[address] [place] [address] Erythrocyte distribution width (RBC) [Ratio] 13.5 % Normal 12.0 - 15.6 [facility] Comment on above: Performed By: #### 2 55013 ####[facility],[address] [place] [address] Hematocrit (Bld) [Volume fraction] 34.5 % Normal 34.0 - 46.0 [facility] Comment on above: Performed By: #### 2 98788 ####[facility],[address] [place] [address] Hemoglobin (Bld) [Mass/Vol] 11.6 g/dL Low 12.0 - 16.0 [facility] Comment on above: Performed By: #### 2 41295 ####[facility],[address] [place] [address] 35892 Lymph # 1.67 x10EE3/UL Normal 0.80 - 2.80 [facility] Comment on above: Performed By: #### 2 21249 ####[facility],[address] [place], [place] [address] Lymphocytes/100 WBC (Bld) 33.4 % Normal 20.0 - 45.0 [facility] Comment on above: Performed By: #### 2 38102 ####[facility],[address] [place], [place] [address] MANUAL DIFF N/A Normal [facility] Comment on above: Performed By: #### 2 10777 ####[facility],[address] [place] [address] MCH (RBC) [Entitic mass] 34 pg High 27 - 33 [facility] Comment on above: Performed By: #### 2 20470 ####[facility],[address] [place] [address] MCHC 34 X10 3 Normal 32 - 36 [facility] Comment on above: Performed By: #### 2 30949 ####[facility],[address] [place] [address] MCV (RBC) [Entitic vol] 100 fL High 80 - 99 [facility] Comment on above: Performed By: #### 2 56132 ####[facility],[address] [place] [address] [place] # 0.47 x10EE3/UL Normal 0.20 - 1.00 [facility] Comment on above: Performed By: #### 2 38858 ####[facility],[address] [place] [address] MONOS % 9.3 % Normal 0.0 - 10.0 [facility] Comment on above: Performed By: #### 2 24926 ####[facility],[address] [place] [address] Morphology Haris (Bld) [Interp] N/A Normal [facility] Comment on above: Performed By: #### 2 38787 ####[facility],[address] [place] [address] Neut # 2.72 x10EE3/UL Normal 1.50 - 7.10 [facility] Comment on above: Performed By: #### 2 50728 ####[facility],[address] [place] [address] Neutrophils/100 WBC (Bld) 54.5 % Normal 46.0 - 76.0 [facility] Comment on above: Performed By: #### 2 69696 ####[facility],[address] [place] [address] 45465 PLATELET 207 x10EE3/UL Normal 150 - 450 [facility] Comment on above: Performed By: #### 2 70473 ####[facility],[address] [place] [address] 82505 Platelet mean volume (Bld) [Entitic vol] 7.6 fL Normal 6.6 - 10.5 [facility] Comment on above: Result Comment: AUTO MATED DIFFERENTIAL Performed By: #### 2 85776 ####[facility],[address] [place] [address] 16743 RBC 3.44 x 10EE6/UL Low 4.10 - 5.30 [facility] Comment on above: Performed By: #### 2 89176 ####[facility],[address] [place] [address] 52131 WBC 5.0 x 10EE3/UL Normal 4.5 - 10.8 [facility] Comment on above: Performed By: #### 2 64343 ####[facility],[address] [place] [address] 31055 CMP with eGFRon 04-30-2024 AGE 83 years Normal [facility] Comment on above: Performed By: #### 2 20691 #### [facility],[address] [place] [address] 43463 Albumin [Mass/Vol] 3.3 g/dL Low 3.4 - 5.0 [facility] Comment on above: Performed By: #### 2 12671 #### [facility],[address] [place] [address] 90893 Albumin/Globulin [Mass ratio] 1.1 {ratio} Normal 0.9 - 1.6 [facility] Comment on above: Performed By: #### 2 81846 #### [facility],[address] [place] [address] 09201 ALK PHOS 56 U/L Normal 46 - 116 [facility] Comment on above: Performed By: #### 2 44667 #### [facility],[address] [place], [place] [address] ALT [Catalytic activity/Vol] 22 U/L Normal 16 - 63 [facility] Comment on above: Performed By: #### 2 63821 #### [facility],[address] [place], [place] [address] Anion gap [Moles/Vol] 10 mmol/L Normal 10 - 20 [facility] Comment on above: Performed By: #### 2 07042 #### [facility],[address] [place] [address] AST [Catalytic activity/Vol] 25 U/L Normal 13 - 39 [facility] Comment on above: Performed By: #### 2 47816 #### [facility],[address] [place] [address] B/C RATIO 13 ratio Normal 0 - 30 [facility] Comment on above: Performed By: #### 2 86645 #### [facility],[address] [place], [place] [address] Bilirubin [Mass/Vol] 0.5 mg/dL Normal 0.2 - 1.0 [facility] Comment on above: Performed By: #### 2 11890 #### [facility],[address] [place], [place] [address] Calcium [Mass/Vol] 9.7 mg/dL Normal 8.5 - 10.1 [facility] Comment on above: Performed By: #### 2 81374 #### [facility],[address] [place], [place] [address] Chloride [Moles/Vol] 106 mmol/L Normal 98 - 107 [facility] Comment on above: Performed By: #### 2 15288 #### [facility],[address] [place], [place] [address] CMP with eGFR Normal [facility] Comment on above: Result Comment: COMP REHENSIVE METABOLIC PANEL Performed By: #### 2 29823 #### [facility],[address] [place] [address] 56048 CO2 [Moles/Vol] 28.4 mmol/L Normal 21.0 - 32.0 [facility] Comment on above: Performed By: #### 2 10577 #### [facility],[address] [place] [address] 07053 Creatinine [Mass/Vol] 1.34 mg/dL High 0.55 - 1.02 [facility] Comment on above: Performed By: #### 2 20790 #### [facility],[address] [place] [address] 66430 eGFR 38 ML/MINUTE Low 60 - 999 [facility] Comment on above: Performed By: #### 2 65526 #### [facility],[address] [place] [address] 71052 eGFR(AA) 46 ML/MINUTE Low 60 - 999 [facility] Comment on above: Result Comment: ACCO RDING TO THE NATIONAL KIDNEY DISEASE EDUCATION PROGRAM(NKDE), A NORMAL eGFR IS A VALUE GREATER THAN OR EQUAL TO 60 ML/MIN/1.73 SQ METERS. CHRONIC KIDNEY DISEASE: <60mL/MIN/1.73 SQ METERS KIDNEY FAILURE: <15mL/MIN/1.73 SQ METERS THIS TEST SHOULD ONLY BE USED FOR PATIENTS 18 YEARS OF AGE AND OLDER. Performed By: #### 2 25434 #### [facility],[address] [place] [address] 69016 Globulin (S) [Mass/Vol] 2.9 g/dL Normal 1.5 - 3.8 [facility] Comment on above: Performed By: #### 2 42974 #### [facility],[address] [place] [address] 92348 Glucose [Mass/Vol] 93 mg/dL Normal 74 - 106 [facility] Comment on above: Performed By: #### 2 57587 #### [facility],[address] [place] [address] 62618 Potassium [Moles/Vol] 4.4 mmol/L Normal 3.5 - 5.1 [facility] Comment on above: Performed By: #### 2 90064 #### [facility],[address] [place] [address] 88508 Protein [Mass/Vol] 6.2 g/dL Low 6.4 - 8.2 [facility] Comment on above: Performed By: #### 2 20815 #### [facility],[address] [place] [address] 14674 Sodium [Moles/Vol] 140 mmol/L Normal 136 - 145 [facility] Comment on above: Performed By: #### 2 86331 #### [facility],[address] [place] [address] 83940 Urea nitrogen [Mass/Vol] 17 mg/dL Normal 7 - 18 [facility] Comment on above: Performed By: #### 2 48806 #### [facility],[address] [place] [address] 90987 FERRITINon 04-30-2024 Ferritin [Mass/Vol] 158 ng/mL Normal 8 - 388 [facility] Comment on above: Performed By: #### 2 58289 #### [facility],[address] [place] [address] 35475 MAGNESIUMon 04-30-2024 Magnesium [Mass/Vol] 1.6 mg/dL Low 1.8 - 2.4 [facility] Comment on above: Performed By: #### 2 27505 #### [facility],[address] [place] [address] 18345 PTH, INTACT [CCL]on 03-25-20 24 PTH, Intact 21 pg/mL Normal 15-65 [facility] Comment on above: Result Comment: [place] [id number] [place] [address] Sebastian Mares III, M.D. [id number] Performed By: #### 2 01990 ####[facility],[address] [place] [address] 47234 BMP with eGFRon 03-24-2024 AGE 83 years Normal [facility] Comment on above: Performed By: #### 2 63547 ####[facility],[address] [place] [address] 24263 Anion gap [Moles/Vol] 10 mmol/L Normal 10 - 20 [facility] Comment on above: Performed By: #### 2 63850 ####[facility],[address] [place] [address] 62098 BMP with eGFR Normal [facility] Comment on above: Result Comment: BASI C METABOLIC PANEL Performed By: #### 2 96465 ####[facility],[address] [place] [address] 46224 Calcium [Mass/Vol] 9.2 mg/dL Normal 8.5 - 10.1 [facility] Comment on above: Performed By: #### 2 19405 ####[facility],[address] [place] [address] 53619 Chloride [Moles/Vol] 105 mmol/L Normal 98 - 107 [facility] Comment on above: Performed By: #### 2 67366 ####[facility],[address] [place] [address] 89479 CO2 [Moles/Vol] 29.8 mmol/L Normal 21.0 - 32.0 [facility] Comment on above: Performed By: #### 2 63705 ####[facility],[address] [place] [address] 26692 Creatinine [Mass/Vol] 1.35 mg/dL High 0.55 - 1.02 [facility] Comment on above: Performed By: #### 2 65148 ####[facility],[address] [place] [address] 94837 eGFR 37 ML/MINUTE Low 60 - 999 [facility] Comment on above: Performed By: #### 2 34121 ####[facility],[address] [place] [address] 13998 eGFR(AA) 45 ML/MINUTE Low 60 - 999 [facility] Comment on above: Result Comment: ACCO RDING TO THE NATIONAL KIDNEY DISEASE EDUCATION PROGRAM(NKDE), A NORMAL eGFR IS A VALUE GREATER THAN OR EQUAL TO 60 ML/MIN/1.73 SQ METERS. CHRONIC KIDNEY DISEASE: <60mL/MIN/1.73 SQ METERS KIDNEY FAILURE: <15mL/MIN/1.73 SQ METERS THIS TEST SHOULD ONLY BE USED FOR PATIENTS 18 YEARS OF AGE AND OLDER. Performed By: #### 2 95522 ####[facility],[address] [place] [address] 33126 Glucose [Mass/Vol] 74 mg/dL Normal 74 - 106 [facility] Comment on above: Performed By: #### 2 69098 ####[facility],[address] [place] [address] 92708 Potassium [Moles/Vol] 4.6 mmol/L Normal 3.5 - 5.1 [facility] Comment on above: Performed By: #### 2 38524 ####[facility],[address] [place] [address] 93741 Sodium [Moles/Vol] 140 mmol/L Normal 136 - 145 [facility] Comment on above: Performed By: #### 2 45014 ####[facility],[address] [place] [address] 52198 Urea nitrogen [Mass/Vol] 16 mg/dL Normal 7 - 18 [facility] Comment on above: Performed By: #### 2 44896 ####[facility],[address] [place] [address] 92784 CBC + DIFFon 03-24-2024 Baso # 0.03 x10EE3/UL Normal 0.00 - 0.10 [facility] Comment on above: Performed By: #### 2 12816 #### [facility],[address] [place] [address] 77765 Basophils/100 WBC (Bld) 0.5 % Normal 0.0 - 2.0 [facility] Comment on above: Performed By: #### 2 18826 #### [facility],[address] [place], [place] [address] CBC + DIFF Normal [facility] Comment on above: Result Comment: CBC- COMPLETE BLOOD COUNT Performed By: #### 2 38489 #### [facility],[address] [place] [address] 19093 EO # 0.04 x10EE3/UL Normal 0.00 - 0.50 [facility] Comment on above: Performed By: #### 2 58318 #### [facility],[address] [place], [place] [address] Eosinophils/100 WBC (Bld) 0.8 % Normal 0.0 - 7.0 [facility] Comment on above: Performed By: #### 2 10952 #### [facility],[address] [place] [address] Erythrocyte distribution width (RBC) [Ratio] 13.4 % Normal 12.0 - 15.6 [facility] Comment on above: Performed By: #### 2 49684 #### [facility],[address] [place], [place] [address] Hematocrit (Bld) [Volume fraction] 34.0 % Normal 34.0 - 46.0 [facility] Comment on above: Performed By: #### 2 68280 #### [facility],[address] [place] [address] 93672 Hemoglobin (Bld) [Mass/Vol] 11.2 g/dL Low 12.0 - 16.0 [facility] Comment on above: Performed By: #### 2 24276 #### [facility],[address] [place] [address] 45407 Lymph # 1.50 x10EE3/UL Normal 0.80 - 2.80 [facility] Comment on above: Performed By: #### 2 17628 #### [facility],[address] [place], [place] [address] Lymphocytes/100 WBC (Bld) 29.1 % Normal 20.0 - 45.0 [facility] Comment on above: Performed By: #### 2 89866 #### [facility],[address] [place] [address] MANUAL DIFF N/A Normal [facility] Comment on above: Performed By: #### 2 75093 #### [facility],[address] [place] [address] MCH (RBC) [Entitic mass] 33 pg Normal 27 - 33 [facility] Comment on above: Performed By: #### 2 40827 #### [facility],[address] [place] [address] MCHC 33 X10 3 Normal 32 - 36 [facility] Comment on above: Performed By: #### 2 72145 #### [place] [address] MCV (RBC) [Entitic vol] 101 fL High 80 - 99 [facility] Comment on above: Performed By: #### 2 49780 #### [facility],[address] [place] [address] [place] # 0.54 x10EE3/UL Normal 0.20 - 1.00 [facility] Comment on above: Performed By: #### 2 20023 #### [facility],[address] [place] [address] MONOS % 10.4 % High 0.0 - 10.0 [facility] Comment on above: Performed By: #### 2 56385 #### [facility],[address] [place], [place] [address] Morphology Haris (Bld) [Interp] N/A Normal [facility] Comment on above: Performed By: #### 2 14499 #### [facility],[address] [place] [address] Neut # 3.06 x10EE3/UL Normal 1.50 - 7.10 [facility] Comment on above: Performed By: #### 2 64893 #### [facility],[address] [place] [address] 79809 Neutrophils/100 WBC (Bld) 59.3 % Normal 46.0 - 76.0 [facility] Comment on above: Performed By: #### 2 62766 #### [facility],[address] [place], [place] [address] PLATELET 181 x10EE3/UL Normal 150 - 450 [facility] Comment on above: Performed By: #### 2 10301 #### [facility],[address] [place] [address] Platelet mean volume (Bld) [Entitic vol] 7.5 fL Normal 6.6 - 10.5 [facility] Comment on above: Result Comment: AUTO MATED DIFFERENTIAL Performed By: #### 2 29299 #### [place] [address] RBC 3.37 x 10EE6/UL Low 4.10 - 5.30 [facility] Comment on above: Performed By: #### 2 48205 #### [facility],[address] [place], [place] [address] WBC 5.2 x 10EE3/UL Normal 4.5 - 10.8 [facility] Comment on above: Performed By: #### 2 78538 #### [facility],[address] [place], [place] [address] URIC ACIDon 03-24-2024 Urate [Mass/Vol] 3.7 mg/dL Normal 2.6 - 6.0 [facility] Comment on above: Performed By: #### 2 33188 ####[facility],[address] [place] [address] URINE CREATININE AND PROTEIN RATIOon 03-24-2024 CREATININE UR 61.41 mg/dl Normal [facility] Comment on above: Performed By: #### 2 23619 #### [facility],[address] [place] [address] 87365 PC RATIO 0.07 mg/dL Normal 0.00 - 10.00 [facility] Comment on above: Performed By: #### 2 60959 #### [facility],[address] [place] [address] 83365 URINE TOTAL PROTEIN <6.00 Normal 0.00 - 10.00 [facility] Comment on above: Performed By: #### 2 37987 #### [facility],[address] [place] [address] 07818 VITAMIN D, 25 HYDROXYon 03-06 VitD 71.20 ng/mL Normal 30.00 - 100 [facility] Comment on above: Result Comment: 25-O HD3 indicates both endogenous production and supplementation. 25-OHD2 is an indicator of exogenous sources, such as diet or supplementation. Therapy is based on measurement of Total 25-OHD, with levels <20 ng/mL indicative of Vitamin D deficiency, while levels between 20 ng/mL and 30 ng/mL suggest insufficiency. Optimal levels are >=30ng/mL. Vitamin D, 25-OH D3 Not Established Vitamin D, 25-OH D2 Not Established Performed By: #### 2 07525 #### [facility],[address] [place] [address] 91996 T3, FREE [CCL]on 02-14-2024 Free T3 [Mass/Vol] 2.6 pg/mL Normal 2.3-4.1 [facility] Comment on above: Result Comment: [facility] [address] [place] [address] Sebastian Mares III, M.D. [id number] Performed By: #### 2 53053 ####[facility],[address] [place] [address] 45167 T4-FREE (FREE THYROXINE)on 1 Free T4 [Mass/Vol] 0.74 ng/dL Low 0.76 - 1.46 [facility] Comment on above: Result Comment: P otential of falsely elevated results when biotin concentrations are > 10 ng/mL. Performed By: #### 2 09170 ####[facility],[address] [place] [address] 12377 TSHon 02-13-2024 TSH Qn 1.92 m[IU]/L Normal 0.35 - 3.74 [facility] Comment on above: Performed By: #### 2 03531 #### [facility],[address] [place], [place] [address] Special Stain Group IIon Special Stain Group II -------- Patient Age/Sex Location Account Attending Physician -------- VICKIE BLUE 83[id number]. Alexa Sky MD -------- Specimen: [id number] Received: 02/12/24 Status: BRANDON Hughes Num: [id number] Spec Type: ASP OUT Subm Dr: Dr. Alexa Sky MD HEADER OPERATION: Fine needle aspiration of right thyroid nodule PRE-OP DIAGNOSIS: Right thyroid nodule TISSUE SUBMITTED: A- Right thyroid nodule fluid, B- Right thyroid nodule slides -------- DIAGNOSIS CYTOLOGY A. Right thyroid nodule fluid, fine needle aspiration (cytospins and cellblock): Negative for malignant cells. B. Right thyroid nodule, fine needle aspiration (smears): Consistent with benign follicular/colloid nodule, [place] Category II. See comment. / 02/16/2024 COMMENT A. Specimen is bloody and follicular cells are not identified. B. The specimen is paucicellular, however, contains minimal number of follicular cells required for adequacy of the specimen. The [place] System for thyroid diagnostic categorization was used in the evaluation of this case. Correlation with clinical, radiologic findings and appropriate follow up are necessary. Case has been reviewed in consultation with Dr. Valdivia who concurs with the above diagnosis. IDC:AM CYTOLOGY STUDY Slides are reviewed. CYTOLOGY GROSS A. Received is 30 ml of red fluid labeled with the patient's name and and designated per the requisition as Right thyroid nodule." Submitted for cytology preparation including cell block. B. Received are 4 smears labeled with the patient's name and designated per the requisition as "Right thyroid nodule." Submitted for staining. 02/13/2024 TC:5 CPT: 16049n4,40875 Signed (signature on file) Dr. Chidi Aragon MD 02/16/24 1154 -------- Normal [facility] Comment on above: Performed By: #### P SSII #### [facility] [address] [place], [address] Surgery Visit Reporton 02-11 Surgery Visit Report [facility] [address] [place] [address] OFFICE VISIT Date of Service: 02/12/24 MR#: [id number] Acct: [id number] Name: VICKIE BLUE Rep #: [id number] : 1940 Provider: Dr. Alexa darling MD Age/Sex: 83/F Location: [facility] Status: Signed Intake Vital Signs 02/12/24 13:02 Height 5 ft 4 in Weight: 158 lb BMI 27.1 BP 137/78 H Blood Pressure Location Rt brachial Position Sitting Respiration 18 Pulse 54 L Pulse Source Monitor Temp 97.6 F L Temp Source Temporal Pulse Oximetry (%) 94 Oxygen Delivery Method room air Intake Visit Reasons: THYROID NODULE Chief Complaint: htyroid nodule Accompanied by: Son Allergies cephalexin (From Keflex) Allergy (Mild, Verified 02/12/24 13:03) unknown cyclobenzaprine HCl (From Flexeril) Allergy (Verified 02/12/24 13:03) Nausea lovastatin Allergy (Verified 02/12/24 13:03) Nausea pentazocine lactate (From Talwin) Allergy (Verified 02/12/24 13:03) MADE HER FEEL FUNNY Djreduc-XBC-GrI Reductase Inhibitor (Rghsuwi-Twi-Ytw Reductase Inhibitor) Adverse Reaction (Mild, Verified 02/12/24 13:03) Nausea Medications ???Medication ???Instructions ???Recorded ???Confirmed ???Type albuterol sulfate 90 mcg/actuation inhalation 02/12/24 02/12/24 History aerosol inhaler amlodipine 2.5 mg tablet 2.5 mg PO QDAY 02/12/24 02/12/24 History aspirin 81 mg tablet,delayed 81 mg PO QDAY 02/12/24 02/12/24 History release bupropion HCl 150 mg tablet,12 hr 150 mg PO QDAY 02/12/24 02/12/24 History sustained-release carvedilol 12.5 mg tablet 12.5 mg PO BID 02/12/24 02/12/24 History famotidine 20 mg tablet 20 mg PO BID 02/12/24 02/12/24 History losartan 25 mg tablet 25 mg PO QDAY 02/12/24 02/12/24 History magnesium chloride 71.5 mg 143 mg PO BID 02/12/24 02/12/24 History (magnesium chloride) tablet,delayed release (Slow-Mag) Have you fallen in the past year?: No PFSH Medical History (Updated 02/12/24 @ 16:[address] Alexa Sky MD) Thyroid nodule HTN (hypertension) Surgical History Hx of cataract extraction H/O cardiac catheterization History of cholecystectomy Social History (Updated 02/12/24 @ 13:02 by Beryl Rodriguez LPN) household members: other details: [facility] housing: [facility] Smoking Status: Former smoker quit date: 05/05/04 pack-years: 34 alcohol intake: never substance use type: does not use what type of physical activity do you participate in: none do you feel safe at home: Yes HPI HPI HPI: Patient is a 83-year-old Female who presents for Evaluation of a right-sided thyroid nodule. They are referred for surgical consultation from Dr. Erwin. This was discovered during a workup for some complaints of difficulty swallowing while patient was in the hospital several years ago. She states that she was initially told not to worry about the nodule but then underwent some recent blood work and thyroid ultrasound was repeated. She is pleased to report that she no longer experiences difficulty with swallowing. They do complain of a new productive cough and some hoarseness that has been present for the last couple of days. They Do not have a history of snoring/sleep apnea. Additionally, their weight has been Stable and they do Not have a history of weight Gain/loss or an inability to lose despite intentional effort. There is no history of recent fatigue. They do not have a history of heat or cold intolerance. Other symptoms include: Constipation (but patient shares this is a chronic issue that is stable). They do have a family history of thyroid disorders and share that both her sister and mother have had thyroid diagnoses. She is unsure whether her mother required surgery but describes that her sister underwent radioactive iodine ablation. She also notes that there is a thyroid diagnosis for her sister's daughter (patient's niece). There is no history of prior radiation exposure. Previous work-up has not included thyroid ultrasound. This study was performed on at outside hospital on 01/23/2024 and showed a right thyroid lobe measuring 4.0 x 2.4 x 1.6 cm. Within this lobe radiology identified a nodule scratched measuring 1.7 x 1.6 x 1.1 cm and was noted to previously measure 1.2 x 1.1 x 1.2 cm (comparison ultrasound was made 07/20/2021) and radiology commented that this merited a TI-RADS 4 designation. The left thyroid lobe measured 4.8 x 1.5 x 1.5 cm. Within this lobe radiology did not identify any additional nodules. An FNA has not been performed. Other tests include: [TSH, T3, T4,etc ] ROS General General: Yes weight change; No appetite, fatigue, colon cancer, breast cancer or weakness HEENT HEENT: Yes eye surgery; No diff (more content not included)... Normal [facility] PTH, [place] 04-05-2021 PTH, Intact 37 pg/mL Normal 15-65 [facility] Comment on above: Performed By: #### P THI #### [facility] Routine Lab [address], [place] [address] PTH, [place] 12-21-2020 PTH, Intact 43 pg/mL Normal 15-65 [facility] Comment on above: Performed By: #### P THI #### [facility] Routine Lab [address], [place] [address] VIDDHon 09-29-2020 Vit. D 1,25 Dihydro. 58.8 pg/mL Normal 15.0-60.0 [facility] ([place]) Comment on above: Result Comment: This test was developed and its performance characteristics determined by [facility]'s [facility] [place] ([facility]). It has not been cleared or approved by the FDA. [facility] is regulated under CLIA as qualified to perform high complexity testing. This test is used for clinical purposes. It should not be regarded as investigational or for research. Performed By: [facility] [address] [place] [address] Rn Occupational: Sebastian Mares III, M.D. CLIA#: [id number] Phone#: Performed By: #### C BC, ADIFF, ANEU, APTT, PRO #### [address] [address] Vitamin D2 1,25 48.9 pg/mL Normal [facility] ([place]) Comment on above: Result Comment: Perf ormed By: [address] [address] Rn Occupational: Sebastian Mares III, M.D. CLIA#: [id number] Phone#: Performed By: #### C BC, ADIFF, ANEU, APTT, PRO #### [address] [address] Vitamin D3 1,25 9.9 pg/mL Normal [facility] ([place]) Comment on above: Result Comment: Perf ormed By: [address] [address] Rn Occupational: Sebastian Mares III, M.D. CLIA#: [id number] Phone#: Performed By: #### C BC, ADIFF, ANEU, APTT, PRO #### [address] [address] PTH, [place] 09-25-2020 PTH, Intact 36 pg/mL Normal 15-65 [facility] Comment on above: Performed By: #### P THI #### [facility] Routine Lab [address] [place] [address] .Auto Diffon 09-24-2020 Basophil, Absolute 0.10 10 3/mcL Normal 0.00-0.27 [facility] ([place]) Comment on above: Performed By: #### C BC, ADIFF, ANEU, APTT, PRO #### [address] [address] Basophils/100 WBC (Bld) 0.8 % Normal 0.0-2.5 [facility] ([place]) Comment on above: Performed By: #### C BC, ADIFF, ANEU, APTT, PRO #### [address] [address] Eosinophil, Absolute 0.10 10 3/mcL Normal 0.00-0.65 [facility] ([place]) Comment on above: Performed By: #### C BC, ADIFF, ANEU, APTT, PRO #### [address] [address] Eosinophils/100 WBC (Bld) 1.8 % Normal 0.0-6.0 [facility] ([place]) Comment on above: Performed By: #### C BC, ADIFF, ANEU, APTT, PRO #### [address] [address] Lymphocyte, Absolute 1.00 10 3/mcL Normal 0.90-4.32 [facility] ([place]) Comment on above: Performed By: #### C BC, ADIFF, ANEU, APTT, PRO #### [address] [address] Lymphocytes/100 WBC (Bld) 16.0 % Low 20.0-40.0 [facility] ([place]) Comment on above: Performed By: #### C BC, ADIFF, ANEU, APTT, PRO #### [address] [address] Monocyte, Absolute 0.70 10 3/mcL Normal 0.09-1.40 [facility] ([place]) Comment on above: Performed By: #### C BC, ADIFF, ANEU, APTT, PRO #### [address] [address] Monocytes/100 WBC (Bld) 10.7 % Normal 2.0-13.0 [facility] ([place]) Comment on above: Performed By: #### C BC, ADIFF, ANEU, APTT, PRO #### [address] [address] Neutrophils/100 WBC (Bld) 70.7 % Normal 50.0-75.0 [facility] ([place]) Comment on above: Performed By: #### C BC, ADIFF, ANEU, APTT, PRO #### [address] [address] .GFRon 09-24-2020 GFR >60 Normal [facility] ([place]) Comment on above: Result Comment: GFR Population mean for , Non- Americans Ages 20-29 = 116 mL/min/1.73 sq.m. Ages 30-39 = 107 mL/min/1.73 sq.m. Ages 40-49 = 99 mL/min/1.73 sq.m. Ages 50-59 = 93 mL/min/1.73 sq.m. Ages 60-69 = 85 mL/min/1.73 sq.m. Ages 70+ = 75 mL/min/1.73 sq.m. Chronic Kidney Disease: Less than 60 mL/min/1.73 square meters End Stage Renal Disease: Less than 15 mL/min/1.73 square meters Performed By: #### C BC, ADIFF, ANEU, APTT, PRO #### [address] [address] GFR Non- 51 ml/min/1.73sqm Normal [facility] ([place]) Comment on above: Result Comment: GFR Population mean for , Non- Americans Ages 20-29 = 116 mL/min/1.73 sq.m. Ages 30-39 = 107 mL/min/1.73 sq.m. Ages 40-49 = 99 mL/min/1.73 sq.m. Ages 50-59 = 93 mL/min/1.73 sq.m. Ages 60-69 = 85 mL/min/1.73 sq.m. Ages 70+ = 75 mL/min/1.73 sq.m. Chronic Kidney Disease: Less than 60 mL/min/1.73 square meters End Stage Renal Disease: Less than 15 mL/min/1.73 square meters Performed By: #### C BC, ADIFF, ANEU, APTT, PRO #### [address] [address] .NEUABSon 09-24-2020 Neutrophil, Absolute 4.60 10 3/mcL Normal 2.25-8.10 [facility] ([place]) Comment on above: Performed By: #### C BC, ADIFF, ANEU, APTT, PRO #### [address] [address] A1Con 09-24-2020 HbA1c (Bld) [Mass fraction] 4.6 % Normal 4.0-6.0 [facility] ([place]) Comment on above: Performed By: #### C BC, ADIFF, ANEU, APTT, PRO #### [address] [address] BMPon 09-24-2020 BUN/Creatinine Ratio 12.5 ratio Normal 10.0-22.0 [facility] ([place]) Comment on above: Performed By: #### C BC, ADIFF, ANEU, APTT, PRO #### [address] [address] Calcium [Mass/Vol] 7.1 mg/dL Low 8.4-10.1 [facility] ([place]) Comment on above: Result Comment: No te - New Reference Range in effect 19 Performed By: #### C BC, ADIFF, ANEU, APTT, PRO #### [address] [address] Chloride [Moles/Vol] 106 mmol/L Normal 98-110 [facility] ([place]) Comment on above: Performed By: #### C BC, ADIFF, ANEU, APTT, PRO #### [address] [address] CO2 [Moles/Vol] 30 mmol/L Normal 22-32 [facility] ([place]) Comment on above: Performed By: #### C BC, ADIFF, ANEU, APTT, PRO #### [address] [address] Creatinine [Mass/Vol] 1.04 mg/dL Normal 0.50-1.20 [facility] ([place]) Comment on above: Performed By: #### C BC, ADIFF, ANEU, APTT, PRO #### [address] [address] Electrolyte Balance 3.0 mEq/L Low 4.0-15.0 [facility] ([place]) Comment on above: Performed By: #### C BC, ADIFF, ANEU, APTT, PRO #### [address] [address] Glucose [Mass/Vol] 86 mg/dL Normal 82-115 [facility] ([place]) Comment on above: Performed By: #### C BC, ADIFF, ANEU, APTT, PRO #### [address] [address] Potassium [Moles/Vol] 3.8 mmol/L Normal 3.5-5.0 [facility] ([place]) Comment on above: Performed By: #### C BC, ADIFF, ANEU, APTT, PRO #### [address] [address] Sodium [Moles/Vol] 139 mmol/L Normal 136-145 [facility] ([place]) Comment on above: Performed By: #### C BC, ADIFF, ANEU, APTT, PRO #### [address] [address] Urea nitrogen [Mass/Vol] 13.0 mg/dL Normal 8.0-22.0 [facility] ([place]) Comment on above: Performed By: #### C BC, ADIFF, ANEU, APTT, PRO #### [address] [address] CAIONon 09-24-2020 Calcium Ionized 0.90 mmol/L Low 1.12-1.32 [facility] ([place]) Comment on above: Performed By: #### C BC, ADIFF, ANEU, APTT, PRO #### [address] [address] CBCon 09-24-2020 Erythrocyte distribution width (RBC) [Ratio] 14.2 % Normal 11.5-15.5 [facility] ([place]) Comment on above: Performed By: #### C BC, ADIFF, ANEU, APTT, PRO #### [place] [address] Hematocrit (Bld) [Volume fraction] 29.9 % Low 34.0-46.0 [facility] ([place]) Comment on above: Performed By: #### C BC, ADIFF, ANEU, APTT, PRO #### [place] [address] Hgb 9.9 G/dL Low 12.0-16.0 [facility] ([place]) Comment on above: Performed By: #### C BC, ADIFF, ANEU, APTT, PRO #### [place] [address] MCH (RBC) [Entitic mass] 33.2 pg High 27.0-33.0 [facility] ([place]) Comment on above: Performed By: #### C BC, ADIFF, ANEU, APTT, PRO #### [place] [address] MCHC 33.0 G/dL Normal 32.0-36.0 [facility] ([place]) Comment on above: Performed By: #### C BC, ADIFF, ANEU, APTT, PRO #### [place] [address] MCV (RBC) [Entitic vol] 100.7 fL High 80.0-99.0 [facility] ([place]) Comment on above: Performed By: #### C BC, ADIFF, ANEU, APTT, PRO #### [place] [address] Platelet 272 10 3/mcL Normal 150-450 [facility] ([place]) Comment on above: Performed By: #### C BC, ADIFF, ANEU, APTT, PRO #### [place] [address] Platelet mean volume (Bld) [Entitic vol] 7.8 fL Normal 6.6-10.5 [facility] ([place]) Comment on above: Performed By: #### C BC, ADIFF, ANEU, APTT, PRO #### [place] [address] RBC 2.97 10 6/mcL Low 4.10-5.30 [facility] ([place]) Comment on above: Performed By: #### C BC, ADIFF, ANEU, APTT, PRO #### [address] [address] WBC 6.50 10 3/mcL Normal 4.50-10.80 [facility] ([place]) Comment on above: Performed By: #### C BC, ADIFF, ANEU, APTT, PRO #### [address] [address] LIPIDon 09-24-2020 Cholesterol [Mass/Vol] 130 mg/dL Normal 50-199 [facility] ([place]) Comment on above: Result Comment: Chol esterol Reference Interval: Less than 200 Desirable 200-239 Borderline high risk 240 and above High risk Performed By: #### C BC, ADIFF, ANEU, APTT, PRO #### [place] [address] Cholesterol in HDL [Mass/Vol] 56 mg/dL Normal 40-59 [facility] ([place]) Comment on above: Performed By: #### C BC, ADIFF, ANEU, APTT, PRO #### [place] [address] Cholesterol in LDL [Mass/Vol] 55 mg/dL Normal 0-129 [facility] ([place]) Comment on above: Performed By: #### C BC, ADIFF, ANEU, APTT, PRO #### [place] [address] Triglyceride [Mass/Vol] 93 mg/dL Normal 3-149 [facility] ([place]) Comment on above: Performed By: #### C BC, ADIFF, ANEU, APTT, PRO #### [address] [address] MGon 09-24-2020 Magnesium [Mass/Vol] 1.7 mg/dL Normal 1.6-2.4 [facility] ([place]) Comment on above: Performed By: #### C BC, ADIFF, ANEU, APTT, PRO #### [address] [address] PTHon 09-24-2020 PTH, Intact 208.0 pg/mL High 18.5-88.0 [facility] ([place]) Comment on above: Order Comment: may u se am blood Performed By: #### C BC, ADIFF, ANEU, APTT, PRO #### [address] [address] .Auto Diffon 09-23-2020 Basophil, Absolute 0.10 10 3/mcL Normal 0.00-0.27 [facility] ([place]) Comment on above: Performed By: #### C BC, ADIFF, ANEU, BMP, GFR #### [address] [address] Basophils/100 WBC (Bld) 1.1 % Normal 0.0-2.5 [facility] ([place]) Comment on above: Performed By: #### C BC, ADIFF, ANEU, BMP, GFR #### [address] [address] Eosinophil, Absolute 0.10 10 3/mcL Normal 0.00-0.65 [facility] ([place]) Comment on above: Performed By: #### C BC, ADIFF, ANEU, BMP, GFR #### [address] [address] Eosinophils/100 WBC (Bld) 1.6 % Normal 0.0-6.0 [facility] ([place]) Comment on above: Performed By: #### C BC, ADIFF, ANEU, BMP, GFR #### [address] [address] Lymphocyte, Absolute 1.40 10 3/mcL Normal 0.90-4.32 [facility] ([place]) Comment on above: Performed By: #### C BC, ADIFF, ANEU, BMP, GFR #### [address] [address] Lymphocytes/100 WBC (Bld) 24.3 % Normal 20.0-40.0 [facility] ([place]) Comment on above: Performed By: #### C BC, ADIFF, ANEU, BMP, GFR #### [address] [address] Monocyte, Absolute 0.70 10 3/mcL Normal 0.09-1.40 [facility] ([place]) Comment on above: Performed By: #### C BC, ADIFF, ANEU, BMP, GFR #### [address] [address] Monocytes/100 WBC (Bld) 11.6 % Normal 2.0-13.0 [facility] ([place]) Comment on above: Performed By: #### C BC, ADIFF, ANEU, BMP, GFR #### [address] [address] Neutrophils/100 WBC (Bld) 61.4 % Normal 50.0-75.0 [facility] ([place]) Comment on above: Performed By: #### C BC, ADIFF, ANEU, BMP, GFR #### [address] [address] .GFRon 09-23-2020 GFR 58 ml/min/1.73sqm Normal [facility] ([place]) Comment on above: Result Comment: GFR Population mean for , Non- Americans Ages 20-29 = 116 mL/min/1.73 sq.m. Ages 30-39 = 107 mL/min/1.73 sq.m. Ages 40-49 = 99 mL/min/1.73 sq.m. Ages 50-59 = 93 mL/min/1.73 sq.m. Ages 60-69 = 85 mL/min/1.73 sq.m. Ages 70+ = 75 mL/min/1.73 sq.m. Chronic Kidney Disease: Less than 60 mL/min/1.73 square meters End Stage Renal Disease: Less than 15 mL/min/1.73 square meters Performed By: #### C BC, ADIFF, ANEU, APTT, PRO #### [address] [address] GFR Non- 48 ml/min/1.73sqm Normal [facility] ([place]) Comment on above: Result Comment: GFR Population mean for , Non- Americans Ages 20-29 = 116 mL/min/1.73 sq.m. Ages 30-39 = 107 mL/min/1.73 sq.m. Ages 40-49 = 99 mL/min/1.73 sq.m. Ages 50-59 = 93 mL/min/1.73 sq.m. Ages 60-69 = 85 mL/min/1.73 sq.m. Ages 70+ = 75 mL/min/1.73 sq.m. Chronic Kidney Disease: Less than 60 mL/min/1.73 square meters End Stage Renal Disease: Less than 15 mL/min/1.73 square meters Performed By: #### C BC, ADIFF, ANEU, APTT, PRO #### [address] [address] GFR Non- 50 ml/min/1.73sqm Normal [facility] ([place]) Comment on above: Result Comment: GFR Population mean for , Non- Americans Ages 20-29 = 116 mL/min/1.73 sq.m. Ages 30-39 = 107 mL/min/1.73 sq.m. Ages 40-49 = 99 mL/min/1.73 sq.m. Ages 50-59 = 93 mL/min/1.73 sq.m. Ages 60-69 = 85 mL/min/1.73 sq.m. Ages 70+ = 75 mL/min/1.73 sq.m. Chronic Kidney Disease: Less than 60 mL/min/1.73 square meters End Stage Renal Disease: Less than 15 mL/min/1.73 square meters Performed By: #### C BC, ADIFF, ANEU, APTT, PRO #### [address] [address] GFR 60 ml/min/1.73sqm Normal [facility] ([place]) Comment on above: Result Comment: GFR Population mean for , Non- Americans Ages 20-29 = 116 mL/min/1.73 sq.m. Ages 30-39 = 107 mL/min/1.73 sq.m. Ages 40-49 = 99 mL/min/1.73 sq.m. Ages 50-59 = 93 mL/min/1.73 sq.m. Ages 60-69 = 85 mL/min/1.73 sq.m. Ages 70+ = 75 mL/min/1.73 sq.m. Chronic Kidney Disease: Less than 60 mL/min/1.73 square meters End Stage Renal Disease: Less than 15 mL/min/1.73 square meters Performed By: #### C BC, ADIFF, ANEU, APTT, PRO #### [address] [address] .NEUABSon 09-23-2020 Neutrophil, Absolute 3.60 10 3/mcL Normal 2.25-8.10 [facility] ([place]) Comment on above: Performed By: #### C BC, ADIFF, ANEU, BMP, GFR #### [place] [address] APTTon 09-23-2020 aPTT Coag (Bld) [Time] 77.7 s High 25.0-35.0 [facility] ([place]) Comment on above: Result Comment: For Heparin anticoagulation therapy, the recommended therapeutic range is: 54-77 seconds (APTT Correlation with Anti-Xa therapeutic range of 0.3-0.7 units/ml). PLEASE REFERENCE THE PHARMACY PROTOCOL FOR DOSING. Performed By: #### C BC, ADIFF, ANEU, APTT, PRO #### [place] [address] Heparin dose (APTT) Heparin IV Normal [facility] ([place]) Comment on above: Performed By: #### C BC, ADIFF, ANEU, APTT, PRO #### [place] [address] aPTT Coag (Bld) [Time] 174.6 s Critically abnormal 25.0-35.0 [facility] ([place]) Comment on above: Result Comment: For Heparin anticoagulation therapy, the recommended therapeutic range is: 54-77 seconds (APTT Correlation with Anti-Xa therapeutic range of 0.3-0.7 units/ml). PLEASE REFERENCE THE PHARMACY PROTOCOL FOR DOSING. Performed By: #### C BC, ADIFF, ANEU, APTT, PRO #### [address] [address] Heparin dose (APTT) Heparin IV Normal [facility] ([place]) Comment on above: Performed By: #### C BC, ADIFF, ANEU, APTT, PRO #### [address] [address] aPTT Coag (Bld) [Time] s Critically abnormal 25.0-35.0 [facility] ([place]) Comment on above: Result Comment: For Heparin anticoagulation therapy, the recommended therapeutic range is: 54-77 seconds (APTT Correlation with Anti-Xa therapeutic range of 0.3-0.7 units/ml). PLEASE REFERENCE THE PHARMACY PROTOCOL FOR DOSING. Performed By: #### C BC, ADIFF ANEU, APTT, PRO #### [address] [address] Heparin dose (APTT) Heparin IV Normal [facility] ([place]) Comment on above: Performed By: #### C BC ADGENARO ANEU, APTT, PRO #### [address] [address] aPTT Coag (Bld) [Time] 29.7 s Normal 25.0-35.0 [facility] ([place]) Comment on above: Result Comment: For Heparin anticoagulation therapy, the recommended therapeutic range is: 54-77 seconds (APTT Correlation with Anti-Xa therapeutic range of 0.3-0.7 units/ml). PLEASE REFERENCE THE PHARMACY PROTOCOL FOR DOSING. Performed By: #### C BC ADIFF, ANEU, BMP, GFR #### [address] [address] Heparin dose (APTT) None Normal [facility] ([place]) Comment on above: Performed By: #### C BC, ADIFF, ANEU, BMP, GFR #### [address] [address] BMPon 09-23-2020 Calcium [Mass/Vol] 6.4 mg/dL Critically abnormal 8.4-10.1 [facility] ([place]) Comment on above: Result Comment: No te - New Reference Range in effect 19 Performed By: #### C BC, ADIFF, ANEU, APTT, PRO #### [address] [address] BUN/Creatinine Ratio 12.7 ratio Normal 10.0-22.0 [facility] ([place]) Comment on above: Performed By: #### C BC, ADIFF, ANEU, APTT, PRO #### [address] [address] Chloride [Moles/Vol] 105 mmol/L Normal 98-110 [facility] ([place]) Comment on above: Performed By: #### C BC, ADIFF, ANEU, APTT, PRO #### [address] [address] CO2 [Moles/Vol] 29 mmol/L Normal 22-32 [facility] ([place]) Comment on above: Performed By: #### C BC, ADIFF, ANEU, APTT, PRO #### [address] [address] Creatinine [Mass/Vol] 1.10 mg/dL Normal 0.50-1.20 [facility] ([place]) Comment on above: Performed By: #### C BC, ADIFF, ANEU, APTT, PRO #### [address] [address] Electrolyte Balance 6.0 mEq/L Normal 4.0-15.0 [facility] ([place]) Comment on above: Performed By: #### C BC, ADIFF, ANEU, APTT, PRO #### [address] [address] Glucose [Mass/Vol] 116 mg/dL High 82-115 [facility] ([place]) Comment on above: Performed By: #### C BC, ADIFF, ANEU, APTT, PRO #### [address] [address] Potassium [Moles/Vol] 3.9 mmol/L Normal 3.5-5.0 [facility] ([place]) Comment on above: Performed By: #### C BC, ADIFF, ANEU, APTT, PRO #### [address] [address] Sodium [Moles/Vol] 140 mmol/L Normal 136-145 [facility] ([place]) Comment on above: Performed By: #### C BC, ADIFF, ANEU, APTT, PRO #### [place] [address] Urea nitrogen [Mass/Vol] 14.0 mg/dL Normal 8.0-22.0 [facility] ([place]) Comment on above: Performed By: #### C BC, ADIFF, ANEU, APTT, PRO #### [place] [address] CAIONon 09-23-2020 Calcium Ionized 0.81 mmol/L Critically abnormal 1.12-1.32 [facility] ([place]) Comment on above: Performed By: #### C BC, ADIFF, ANEU, APTT, PRO #### [place] [address] Calcium Ionized 0.68 mmol/L Critically abnormal 1.12-1.32 [facility] ([place]) Comment on above: Performed By: #### C BC, ADIFF, ANEU, BMP, GFR #### [place] [address] CBCon 09-23-2020 Erythrocyte distribution width (RBC) [Ratio] 14.1 % Normal 11.5-15.5 [facility] ([place]) Comment on above: Performed By: #### C BC, ADIFF, ANEU, BMP, GFR #### [place] [address] Hematocrit (Bld) [Volume fraction] 30.7 % Low 34.0-46.0 [facility] ([place]) Comment on above: Performed By: #### C BC, ADIFF, ANEU, BMP, GFR #### [place] [address] Hgb 10.3 G/dL Low 12.0-16.0 [facility] ([place]) Comment on above: Performed By: #### C BC, ADIFF, ANEU, BMP, GFR #### [place] [address] MCH (RBC) [Entitic mass] 33.8 pg High 27.0-33.0 [facility] ([place]) Comment on above: Performed By: #### C BC, ADIFF, ANEU, BMP, GFR #### [address] [address] MCHC 33.4 G/dL Normal 32.0-36.0 [facility] ([place]) Comment on above: Performed By: #### C BC, ADIFF, ANEU, BMP, GFR #### [address] [address] MCV (RBC) [Entitic vol] 101.2 fL High 80.0-99.0 [facility] ([place]) Comment on above: Performed By: #### C BC, ADIFF, ANEU, BMP, GFR #### [place] [address] Platelet 245 10 3/mcL Normal 150-450 [facility] ([place]) Comment on above: Performed By: #### C BC, ADIFF, ANEU, BMP, GFR #### [place] [address] Platelet mean volume (Bld) [Entitic vol] 7.4 fL Normal 6.6-10.5 [facility] ([place]) Comment on above: Performed By: #### C BC, ADIFF, ANEU, BMP, GFR #### [place] [id number] RBC 3.03 10 6/mcL Low 4.10-5.30 [facility] ([place]) Comment on above: Performed By: #### C BC, ADIFF, ANEU, BMP, GFR #### [place] [id number] WBC 5.80 10 3/mcL Normal 4.50-10.80 [facility] ([place]) Comment on above: Performed By: #### C BC, ADIFF, ANEU, BMP, GFR #### [place] [address] CMPon 09-23-2020 Albumin Level 2.6 G/dL Low 3.2-4.8 [facility] ([place]) Comment on above: Performed By: #### C BC, ADIFF, ANEU, APTT, PRO #### [place] [address] Albumin/Globulin [Mass ratio] 0.9 {ratio} Normal 0.9-1.6 [facility] ([place]) Comment on above: Performed By: #### C BC, ADIFF, ANEU, APTT, PRO #### [place] [address] ALP [Catalytic activity/Vol] 65 U/L Normal 38-126 [facility] ([place]) Comment on above: Performed By: #### C BC, ADIFF, ANEU, APTT, PRO #### [place] [address] ALT [Catalytic activity/Vol] 21 U/L Normal 10-49 [facility] ([place]) Comment on above: Performed By: #### C BC, ADIFF, ANEU, APTT, PRO #### [place] [address] AST [Catalytic activity/Vol] 30 U/L Normal 8-34 [facility] ([place]) Comment on above: Performed By: #### C BC, ADIFF, ANEU, APTT, PRO #### [place] [address] Bili Total 0.5 mg/dL Normal 0.2-1.2 [facility] ([place]) Comment on above: Result Comment: Use of this assay is not recommended for patients undergoing treatment with eltrombopag due to the potential for falsely elevated results. Performed By: #### C BC, ADIFF, ANEU, APTT, PRO #### [place] [address] BUN/Creatinine Ratio 12.3 ratio Normal 10.0-22.0 [facility] ([place]) Comment on above: Performed By: #### C BC, ADIFF, ANEU, APTT, PRO #### [place] [id number] Calcium [Mass/Vol] 5.8 mg/dL Critically abnormal 8.4-10.1 [facility] ([place]) Comment on above: Result Comment: No te - New Reference Range in effect 19 Performed By: #### C BC, ADIFF, ANEU, APTT, PRO #### [address] [address] Chloride [Moles/Vol] 104 mmol/L Normal 98-110 [facility] ([place]) Comment on above: Performed By: #### C BC, ADIFF, ANEU, APTT, PRO #### [address] [address] CO2 [Moles/Vol] 32 mmol/L Normal 22-32 [facility] ([place]) Comment on above: Performed By: #### C BC, ADIFF, ANEU, APTT, PRO #### [address] [address] Creatinine [Mass/Vol] 1.06 mg/dL Normal 0.50-1.20 [facility] ([place]) Comment on above: Performed By: #### C BC, ADIFF, ANEU, APTT, PRO #### [address] [address] Electrolyte Balance 7.0 mEq/L Normal 4.0-15.0 [facility] ([place]) Comment on above: Performed By: #### C BC, ADIFF, ANEU, APTT, PRO #### [address] [address] Globulin 2.8 G/dL Normal 1.5-3.8 [facility] ([place]) Comment on above: Performed By: #### C BC, ADIFF, ANEU, APTT, PRO #### [address] [address] Glucose [Mass/Vol] 90 mg/dL Normal 82-115 [facility] ([place]) Comment on above: Performed By: #### C BC, ADIFF, ANEU, APTT, PRO #### [address] [address] Potassium [Moles/Vol] 3.3 mmol/L Low 3.5-5.0 [facility] ([place]) Comment on above: Performed By: #### C BC, ADIFF, ANEU, APTT, PRO #### [address] [address] Sodium [Moles/Vol] 143 mmol/L Normal 136-145 [facility] ([place]) Comment on above: Performed By: #### C BC, ADIFF, ANEU, APTT, PRO #### [address] [address] Total Protein 5.4 G/dL Low 6.0-8.5 [facility] ([place]) Comment on above: Result Comment: No te - New Reference Range in effect 19 Performed By: #### C BC, ADIFF, ANEU, APTT, PRO #### [address] [address] Urea nitrogen [Mass/Vol] 13.0 mg/dL Normal 8.0-22.0 [facility] ([place]) Comment on above: Performed By: #### C BC, ADIFF, ANEU, APTT, PRO #### [address] [address] Calcium, Ionizedon Calcium, Ionized Low 1.08-1.30 [facility] Comment on above: Result Comment: 0.80 Called to and read back by: [place] [id number] [address] [place] [place] Performed By: #### I CA #### [facility] [address] [place], [place] [address] Calcium, Normalized Low 1.08-1.30 [facility] Comment on above: Result Comment: 0.77 Called to and read back by: [place] [id number] [address] [place] Performed By: #### I CA #### [facility] [address] [place], [place] [address] FT4on 09-23-2020 Free T4 1.67 mcg/dL Normal 0.89-1.76 [facility] ([place]) Comment on above: Result Comment: No te - New Reference Range in effect 19 Performed By: #### C BC, ADIFF, ANEU, APTT, PRO #### [address] [address] MGon 09-23-2020 Magnesium [Mass/Vol] 2.2 mg/dL Normal 1.6-2.4 [facility] ([place]) Comment on above: Performed By: #### C BC, ADIFF, ANEU, APTT, PRO #### [address] [address] Magnesium [Mass/Vol] 0.3 mg/dL Critically abnormal 1.6-2.4 [facility] ([place]) Comment on above: Performed By: #### C BC, ADIFF, ANEU, BMP, GFR #### [address] [address] PBNPon 09-23-2020 Natriuretic peptide B (Bld) [Mass/Vol] 1581 pg/mL Normal 0-1800 [facility] ([place]) Comment on above: Result Comment: NT-p roBNP results of less than 300 pg/mL effectively rules out acute congestive heart failure with 99% negative predictive value. Performed By: #### C BC, ADIFF, ANEU, APTT, PRO #### [address] [address] PHOSon 09-23-2020 Phosphate [Mass/Vol] 4.4 mg/dL Normal 2.5-4.5 [facility] ([place]) Comment on above: Result Comment: No te - New Reference Range in effect 19 Performed By: #### C BC, ADIFF, ANEU, BMP, GFR #### [place] [id number] PROon 09-23-2020 INR Coag (PPP) [Relative time] 1.2 {INR} Normal [facility] ([place]) Comment on above: Result Comment: The [employer] (CHEST, 1992, 102:312S-25S) recommended therapeutic range for oral anticoagulant therapy is: LOW RISK: Prophylaxis of venous thrombosis INR: 2.0-3.0 Treatment of pulmonary embolism 2.0-3.0 Prevention of systemic embolism 2.0-3.0 HIGH RISK: Mechanical prosthetic valves 2.5-3.5 Performed By: #### C BC, ADIFF, ANEU, BMP, GFR #### [place] [address] PT Coag (PPP) [Time] 14.9 s High 9.0-14.8 [facility] ([place]) Comment on above: Result Comment: Effe ctive 11/17/07, Protime results may be affected by some antibiotics (i.e. Ciprofloxacin, Azithromycin, Bactrim) which may potentiate the action of oral anticoagulants, with further increases in Protime/INR. Performed By: #### C BC, ADIFF, ANEU, BMP, GFR #### [address] 09-23-2020 Troponin I High Sensitivity 59.45 ng/L High 0.00-34.00 [facility] ([place]) Comment on above: Performed By: #### C BC, ADIFF, ANEU, APTT, PRO #### [place] [address] Troponin I High Sensitivity 57.88 ng/L High 0.00-34.00 [facility] ([place]) Comment on above: Performed By: #### C BC, ADIFF, ANEU, APTT, PRO #### [place] [address] Troponin I High Sensitivity 52.31 ng/L High 0.00-34.00 [facility] ([place]) Comment on above: Performed By: #### C BC, ADIFF, ANEU, BMP, GFR #### [place] [address] TSHon 09-23-2020 TSH 1.073 mIU/mL Normal 0.550-4.780 [facility] ([place]) Comment on above: Result Comment: No te - New Reference Range in effect 19 Performed By: #### C BC, ADIFF, ANEU, APTT, PRO #### [place] [address] TSH 1.661 mIU/mL Normal 0.550-4.780 [facility] ([place]) Comment on above: Result Comment: No te - New Reference Range in effect 19 Performed By: #### C BC, ADIFF, ANEU, APTT, PRO #### [address] [address] UAon 09-23-2020 Color (U) Yellow Normal [facility] ([place]) Comment on above: Performed By: #### C BC, ADIFF, ANEU, APTT, PRO #### [address] [address] Glucose (U) [Mass/Vol] Negative Normal Negative [facility] ([place]) Comment on above: Performed By: #### C BC, ADIFF, ANEU, APTT, PRO #### [address] [address] Ketones Ql (U) Negative Normal Neg-Trace On license of [facility] ([place]) Comment on above: Performed By: #### C BC, ADIFF, ANEU, APTT, PRO #### [address] [address] UA Appear Clear Normal Clear [facility] ([place]) Comment on above: Performed By: #### C BC, ADIFF, ANEU, APTT, PRO #### [address] [address] UA Blood Negative Normal Neg-Trace [facility] ([place]) Comment on above: Performed By: #### C BC, ADIFF, ANEU, APTT, PRO #### [address] [address] UA Leuk Est Large Abnormal Negative [facility] ([place]) Comment on above: Performed By: #### C BC, ADIFF, ANEU, APTT, PRO #### [address] [address] UA Nitrite Negative Normal Negative [facility] ([place]) Comment on above: Performed By: #### C BC, ADIFF, ANEU, APTT, PRO #### [place] [id number] UA pH 7.0 Normal 5.0 - 8.0 [facility] ([place]) Comment on above: Performed By: #### C BC, ADIFF, ANEU, APTT, PRO #### [address] [address] UA Protein Trace Normal Negative [facility] ([place]) Comment on above: Performed By: #### C BC, ADIFF, ANEU, APTT, PRO #### [place] [id number] UA Spec Grav 1.020 Normal 1.006-1.029 [facility] ([place]) Comment on above: Performed By: #### C BC, ADIFF, ANEU, APTT, PRO #### [place] [address] UA Specimen Type Clean Catch Normal [facility] ([place]) Comment on above: Performed By: #### C BC, ADIFF, ANEU, APTT, PRO #### [place] [address] UA Urobilinogen 1.0 E.U./dL Normal 0.2-1.0 [facility] ([place]) Comment on above: Performed By: #### C BC, ADIFF, ANEU, APTT, PRO #### [place] [address] Urobilinogen (U) [Mass/Vol] Negative Normal Neg-Trace [facility] ([place]) Comment on above: Performed By: #### C BC, ADIFF, ANEU, APTT, PRO #### [address] [address] UAMICon 09-23-2020 UA Bacteria Trace Abnormal Negative [facility] ([place]) Comment on above: Performed By: #### C BC, ADIFF, ANEU, APTT, PRO #### [address] [address] UA Mucous Trace Normal [facility] ([place]) Comment on above: Performed By: #### C BC, ADIFF, ANEU, APTT, PRO #### [place] [address] UA RBC 0-2 Normal 0-2 [facility] ([place]) Comment on above: Performed By: #### C BC, ADIFF, ANEU, APTT, PRO #### [place] [id number] UA Squam Epithelial 25-50 Abnormal 0-20 [facility] ([place]) Comment on above: Performed By: #### C BC, ADIFF, ANEU, APTT, PRO #### [facility] [address] [place] [address] UA WBC 10-20 Abnormal 0-5 [facility] ([place]) Comment on above: Performed By: #### C BC, ADIFF, ANEU, APTT, PRO #### [address] [address] VIDHon 09-23-2020 Vit. D 25-Hydroxy 89.9 ng/mL Normal [facility] ([place]) Comment on above: Result Comment: Inte rpretive Values Based on Total 25(OH)D: Severe Deficiency <20 ng/mL Mild to Moderate Deficiency 20-30 ng/mL Optimum Levels 30-100 ng/mL Toxicity Possible >100 ng/mL Performed By: #### C BC, ADIFF, ANEU, APTT, PRO #### [address] [address] XR ESOPHOGRAM/GIon 1 XR ESOPHOGRAM/GI ORIGINAL XR ESOPHOGRAM/GI CLINICAL STATEMENT: DYSPHAGIA. COMPARISON: None FINDINGS: 2.1 minutes fluoroscopy. 76.422 milligray dose. 41 total digital images. The procedure was performed by Penny Alonso, Physician Development Specialist. Swallowing is normal with no tracheal aspiration identified. The cervical esophagus is unremarkable. The remainder the esophagus shows normal course and caliber with no ulceration or mass identified. No focal gastric lesion is identified. No gastric ulceration or mass. The duodenal bulb expands well without ulceration or mass. No other duodenal finding. Mild gastroesophageal reflux is noted during the course of the study. No additional contributory finding. IMPRESSION: Mild gastroesophageal reflux without evidence for esophagitis. No structural lesion identified on this exam. Interpreted By: Alexa Henderson MD Preliminary Report By: Alexa Henderson MD Electronically Signed By: Alexa Henderson MD Dictated Date: 06/27/2020 2:50:47 PM Prelim Date: 06/27/2020 2:50:47 PM Sign Date: 06/27/2020 2:53:10 PM Ordering Provider:Loreta Roa Normal [facility] ([place]) XR SWALLOWING FUNCTIONon XR SWALLOWING FUNCTION ORIGINAL Images acquired, not reported on this accession number. Normal [facility] ([place]) .GFRon 03-29-2020 GFR 43 ml/min/1.73sqm Normal [facility] ([place]) Comment on above: Result Comment: GFR Population mean for , Non- Americans Ages 20-29 = 116 mL/min/1.73 sq.m. Ages 30-39 = 107 mL/min/1.73 sq.m. Ages 40-49 = 99 mL/min/1.73 sq.m. Ages 50-59 = 93 mL/min/1.73 sq.m. Ages 60-69 = 85 mL/min/1.73 sq.m. Ages 70+ = 75 mL/min/1.73 sq.m. Chronic Kidney Disease: Less than 60 mL/min/1.73 square meters End Stage Renal Disease: Less than 15 mL/min/1.73 square meters Performed By: #### C BC, ADIFF, ANEU, BMP, GFR #### [place] [address] GFR Non- 35 ml/min/1.73sqm Normal [facility] ([place]) Comment on above: Result Comment: GFR Population mean for , Non- Americans Ages 20-29 = 116 mL/min/1.73 sq.m. Ages 30-39 = 107 mL/min/1.73 sq.m. Ages 40-49 = 99 mL/min/1.73 sq.m. Ages 50-59 = 93 mL/min/1.73 sq.m. Ages 60-69 = 85 mL/min/1.73 sq.m. Ages 70+ = 75 mL/min/1.73 sq.m. Chronic Kidney Disease: Less than 60 mL/min/1.73 square meters End Stage Renal Disease: Less than 15 mL/min/1.73 square meters Performed By: #### C BC, ADIFF, ANEU, BMP, GFR #### [address] [address] .Manual Diffon 03-29-2020 Basophil %, Manual 0.0 % Normal 0.0-2.5 [facility] ([place]) Comment on above: Performed By: #### C BC, ADIFF, ANEU, BMP, GFR #### [address] [address] Basophil, Abs Manual 0.00 10 3/mcL Normal 0.00-0.27 [facility] ([place]) Comment on above: Performed By: #### C BC, ADIFF, ANEU, BMP, GFR #### [address] [address] Cells Counted 100 Normal [facility] ([place]) Comment on above: Performed By: #### C BC, ADIFF, ANEU, BMP, GFR #### [address] [address] Eosinophil %, Manual 0.0 % Normal 0.0-6.0 [facility] ([place]) Comment on above: Performed By: #### C BC, ADIFF, ANEU, BMP, GFR #### [address] [address] Eosinophil, Abs Manual 0.00 10 3/mcL Normal 0.00-0.65 [facility] ([place]) Comment on above: Performed By: #### C BC, ADIFF, ANEU, BMP, GFR #### [address] [address] Lymphocyte %, Manual 4.0 % Low 20.0-40.0 [facility] ([place]) Comment on above: Performed By: #### C BC, ADIFF, ANEU, BMP, GFR #### [address] [address] Lymphocyte, Abs Manual 0.36 10 3/mcL Low 0.90-4.32 [facility] ([place]) Comment on above: Performed By: #### C BC, ADIFF, ANEU, BMP, GFR #### [address] [address] Monocyte %, Manual 8.0 % Normal 2.0-13.0 [facility] ([place]) Comment on above: Performed By: #### C BC, ADIFF, ANEU, BMP, GFR #### [address] [address] Monocyte, Abs Manual 0.71 10 3/mcL Normal 0.09-1.40 [facility] ([place]) Comment on above: Performed By: #### C BC, ADIFF, ANEU, BMP, GFR #### [place] [address] Myelocyte 1.0 % Normal [facility] ([place]) Comment on above: Performed By: #### C BC, ADIFF, ANEU, BMP, GFR #### [place] [address] Neutrophil %, Manual 87.0 % High 50.0-75.0 [facility] ([place]) Comment on above: Performed By: #### C BC, ADIFF, ANEU, BMP, GFR #### [place] [address] Neutrophil, Abs Manual 7.74 10 3/mcL Normal 2.25-8.10 [facility] ([place]) Comment on above: Performed By: #### C BC, ADIFF, ANEU, BMP, GFR #### [place] [address] .Morphon 03-29-2020 Anisocytosis Ql (Bld) Slight Normal [facility] ([place]) Comment on above: Performed By: #### C BC, ADIFF, ANEU, BMP, GFR #### [place] [address] Hypochrom Slight Normal [facility] ([place]) Comment on above: Performed By: #### C BC, ADIFF, ANEU, BMP, GFR #### [place] [address] Ovalocytes Few Normal [facility] ([place]) Comment on above: Performed By: #### C BC, ADIFF, ANEU, BMP, GFR #### [place] [address] Platelet Estimate Normal Normal [facility] ([place]) Comment on above: Performed By: #### C BC, ADIFF, ANEU, BMP, GFR #### [place] [address] Poik Slight Normal [facility] ([place]) Comment on above: Performed By: #### C BC, ADIFF, ANEU, BMP, GFR #### [address] [address] Polychrom Slight Normal [facility] ([place]) Comment on above: Performed By: #### C BC, ADIFF, ANEU, BMP, GFR #### [address] [address] Tear Cell Rare Normal [facility] ([place]) Comment on above: Performed By: #### C BC, ADIFF, ANEU, BMP, GFR #### [address] [address] BMPon 03-29-2020 BUN/Creatinine Ratio 14.0 ratio Normal 10.0-22.0 [facility] ([place]) Comment on above: Performed By: #### C BC, ADIFF, ANEU, BMP, GFR #### [place] [address] Calcium [Mass/Vol] 8.0 mg/dL Low 8.4-10.1 [facility] ([place]) Comment on above: Result Comment: No te - New Reference Range in effect 19 Performed By: #### C BC, ADIFF, ANEU, BMP, GFR #### [address] [address] Chloride [Moles/Vol] 106 mmol/L Normal 98-110 [facility] ([place]) Comment on above: Performed By: #### C BC, ADIFF, ANEU, BMP, GFR #### [address] [address] CO2 [Moles/Vol] 23 mmol/L Normal 22-32 [facility] ([place]) Comment on above: Performed By: #### C BC, ADIFF, ANEU, BMP, GFR #### [address] [address] Creatinine [Mass/Vol] 1.43 mg/dL High 0.50-1.20 [facility] ([place]) Comment on above: Performed By: #### C BC, ADIFF, ANEU, BMP, GFR #### [address] [address] Electrolyte Balance 8.0 mEq/L Normal 4.0-15.0 [facility] ([place]) Comment on above: Performed By: #### C BC, ADIFF, ANEU, BMP, GFR #### [place] [address] Glucose [Mass/Vol] 78 mg/dL Low 82-115 [facility] ([place]) Comment on above: Performed By: #### C BC, ADIFF, ANEU, BMP, GFR #### [place] [address] Potassium [Moles/Vol] 3.9 mmol/L Normal 3.5-5.0 [facility] ([place]) Comment on above: Performed By: #### C BC, ADIFF, ANEU, BMP, GFR #### [place] [address] Sodium [Moles/Vol] 137 mmol/L Normal 136-145 [facility] ([place]) Comment on above: Performed By: #### C BC, ADIFF, ANEU, BMP, GFR #### [place] [address] Urea nitrogen [Mass/Vol] 20.0 mg/dL Normal 8.0-22.0 [facility] ([place]) Comment on above: Performed By: #### C BC, ADIFF, ANEU, BMP, GFR #### [address] [address] CBCon 03-29-2020 Erythrocyte distribution width (RBC) [Ratio] 15.5 % Normal 11.5-15.5 [facility] ([place]) Comment on above: Performed By: #### C BC, ADIFF, ANEU, BMP, GFR #### [address] [address] Hematocrit (Bld) [Volume fraction] 24.8 % Low 34.0-46.0 [facility] ([place]) Comment on above: Performed By: #### C BC, ADIFF, ANEU, BMP, GFR #### [place] [id number] Hgb 8.6 G/dL Low 12.0-16.0 [facility] ([place]) Comment on above: Performed By: #### C BC, ADIFF, ANEU, BMP, GFR #### [place] [address] MCH (RBC) [Entitic mass] 32.4 pg Normal 27.0-33.0 [facility] ([place]) Comment on above: Performed By: #### C BC, ADIFF, ANEU, BMP, GFR #### [place] [address] MCHC 34.5 G/dL Normal 32.0-36.0 [facility] ([place]) Comment on above: Performed By: #### C BC, ADIFF, ANEU, BMP, GFR #### [place] [address] MCV (RBC) [Entitic vol] 93.9 fL Normal 80.0-99.0 [facility] ([place]) Comment on above: Performed By: #### C BC, ADIFF, ANEU, BMP, GFR #### [place] [address] Platelet 268 10 3/mcL Normal 150-450 [facility] ([place]) Comment on above: Performed By: #### C BC, ADIFF, ANEU, BMP, GFR #### [place] [address] Platelet mean volume (Bld) [Entitic vol] 7.9 fL Normal 6.6-10.5 [facility] ([place]) Comment on above: Performed By: #### C BC, ADIFF, ANEU, BMP, GFR #### [place] [address] RBC 2.64 10 6/mcL Low 4.10-5.30 [facility] ([place]) Comment on above: Performed By: #### C BC, ADIFF, ANEU, BMP, GFR #### [place] [address] WBC 8.90 10 3/mcL Normal 4.50-10.80 [facility] ([place]) Comment on above: Result Comment: Capi llary or microtainer specimen received. Performed By: #### C BC, ADIFF, ANEU, BMP, GFR #### [address] [address] MGon 03-29-2020 Magnesium [Mass/Vol] 1.7 mg/dL Normal 1.6-2.4 [facility] ([place]) Comment on above: Performed By: #### C BC, ADIFF, ANEU, BMP, GFR #### [address] [address] .Auto Diffon 03-28-2020 Basophil, Absolute 0.00 10 3/mcL Normal 0.00-0.27 [facility] ([place]) Comment on above: Performed By: #### C BC, ADIFF, ANEU, BMP, GFR #### [address] [address] Basophils/100 WBC (Bld) 0.4 % Normal 0.0-2.5 [facility] ([place]) Comment on above: Performed By: #### C BC, ADIFF, ANEU, BMP, GFR #### [address] [address] Eosinophil, Absolute 0.10 10 3/mcL Normal 0.00-0.65 [facility] ([place]) Comment on above: Performed By: #### C BC, ADIFF, ANEU, BMP, GFR #### [address] [address] Eosinophils/100 WBC (Bld) 1.1 % Normal 0.0-6.0 [facility] ([place]) Comment on above: Performed By: #### C BC, ADIFF, ANEU, BMP, GFR #### [address] [address] Lymphocyte, Absolute 0.80 10 3/mcL Low 0.90-4.32 [facility] ([place]) Comment on above: Performed By: #### C BC, ADIFF, ANEU, BMP, GFR #### [address] [address] Lymphocytes/100 WBC (Bld) 9.6 % Low 20.0-40.0 [facility] ([place]) Comment on above: Performed By: #### C BC, ADIFF, ANEU, BMP, GFR #### [address] [address] Monocyte, Absolute 1.20 10 3/mcL Normal 0.09-1.40 [facility] ([place]) Comment on above: Performed By: #### C BC, ADIFF, ANEU, BMP, GFR #### [address] [address] Monocytes/100 WBC (Bld) 14.2 % High 2.0-13.0 [facility] ([place]) Comment on above: Performed By: #### C BC, ADIFF, ANEU, BMP, GFR #### [address] [address] Neutrophils/100 WBC (Bld) 74.7 % Normal 50.0-75.0 [facility] ([place]) Comment on above: Performed By: #### C BC, ADIFF, ANEU, BMP, GFR #### [address] [address] .GFRon 03-28-2020 GFR 40 ml/min/1.73sqm Normal [facility] ([place]) Comment on above: Result Comment: GFR Population mean for , Non- Americans Ages 20-29 = 116 mL/min/1.73 sq.m. Ages 30-39 = 107 mL/min/1.73 sq.m. Ages 40-49 = 99 mL/min/1.73 sq.m. Ages 50-59 = 93 mL/min/1.73 sq.m. Ages 60-69 = 85 mL/min/1.73 sq.m. Ages 70+ = 75 mL/min/1.73 sq.m. Chronic Kidney Disease: Less than 60 mL/min/1.73 square meters End Stage Renal Disease: Less than 15 mL/min/1.73 square meters Performed By: #### C BC, ADIFF, ANEU, BMP, GFR #### [address] [address] GFR Non- 33 ml/min/1.73sqm Normal [facility] ([place]) Comment on above: Result Comment: GFR Population mean for , Non- Americans Ages 20-29 = 116 mL/min/1.73 sq.m. Ages 30-39 = 107 mL/min/1.73 sq.m. Ages 40-49 = 99 mL/min/1.73 sq.m. Ages 50-59 = 93 mL/min/1.73 sq.m. Ages 60-69 = 85 mL/min/1.73 sq.m. Ages 70+ = 75 mL/min/1.73 sq.m. Chronic Kidney Disease: Less than 60 mL/min/1.73 square meters End Stage Renal Disease: Less than 15 mL/min/1.73 square meters Performed By: #### C BC, ADIFF, ANEU, BMP, GFR #### [address] [address] .NEUABSon 03-28-2020 Neutrophil, Absolute 6.50 10 3/mcL Normal 2.25-8.10 [facility] ([place]) Comment on above: Performed By: #### C BC, ADIFF, ANEU, BMP, GFR #### [address] [address] BMPon 03-28-2020 BUN/Creatinine Ratio 14.6 ratio Normal 10.0-22.0 [facility] ([place]) Comment on above: Performed By: #### C BC, ADIFF, ANEU, BMP, GFR #### [address] [address] Calcium [Mass/Vol] 8.5 mg/dL Normal 8.4-10.1 [facility] ([place]) Comment on above: Result Comment: No te - New Reference Range in effect 19 Performed By: #### C BC, ADIFF, ANEU, BMP, GFR #### [address] [address] Chloride [Moles/Vol] 107 mmol/L Normal 98-110 [facility] ([place]) Comment on above: Performed By: #### C BC, ADIFF, ANEU, BMP, GFR #### [address] [address] CO2 [Moles/Vol] 24 mmol/L Normal 22-32 [facility] ([place]) Comment on above: Performed By: #### C BC, ADIFF, ANEU, BMP, GFR #### [address] [address] Creatinine [Mass/Vol] 1.51 mg/dL High 0.50-1.20 [facility] ([place]) Comment on above: Performed By: #### C BC, ADIFF, ANEU, BMP, GFR #### [place] [id number] Electrolyte Balance 5.0 mEq/L Normal 4.0-15.0 [facility] ([place]) Comment on above: Performed By: #### C BC, ADIFF, ANEU, BMP, GFR #### [place] [address] Glucose [Mass/Vol] 79 mg/dL Low 82-115 [facility] ([place]) Comment on above: Performed By: #### C BC, ADIFF, ANEU, BMP, GFR #### [place] [address] Potassium [Moles/Vol] 4.2 mmol/L Normal 3.5-5.0 [facility] ([place]) Comment on above: Performed By: #### C BC, ADIFF, ANEU, BMP, GFR #### [place] [id number] Sodium [Moles/Vol] 136 mmol/L Normal 136-145 [facility] ([place]) Comment on above: Performed By: #### C BC, ADIFF, ANEU, BMP, GFR #### [address] [address] Urea nitrogen [Mass/Vol] 22.0 mg/dL Normal 8.0-22.0 [facility] ([place]) Comment on above: Performed By: #### C BC, ADIFF, ANEU, BMP, GFR #### [address] [address] CBCon 03-28-2020 Erythrocyte distribution width (RBC) [Ratio] 15.3 % Normal 11.5-15.5 [facility] ([place]) Comment on above: Performed By: #### C BC, ADIFF, ANEU, BMP, GFR #### [place] [address] Hematocrit (Bld) [Volume fraction] 26.4 % Low 34.0-46.0 [facility] ([place]) Comment on above: Performed By: #### C BC, ADIFF, ANEU, BMP, GFR #### [place] [address] Hgb 9.0 G/dL Low 12.0-16.0 [facility] ([place]) Comment on above: Performed By: #### C BC, ADIFF, ANEU, BMP, GFR #### [place] [address] MCH (RBC) [Entitic mass] 32.2 pg Normal 27.0-33.0 [facility] ([place]) Comment on above: Performed By: #### C BC, ADIFF, ANEU, BMP, GFR #### [place] [address] MCHC 34.1 G/dL Normal 32.0-36.0 [facility] ([place]) Comment on above: Performed By: #### C BC, ADIFF, ANEU, BMP, GFR #### [place] [address] MCV (RBC) [Entitic vol] 94.5 fL Normal 80.0-99.0 [facility] ([place]) Comment on above: Performed By: #### C BC, ADIFF, ANEU, BMP, GFR #### [place] [place] [id number] Platelet 238 10 3/mcL Normal 150-450 [facility] ([place]) Comment on above: Performed By: #### C BC, ADIFF, ANEU, BMP, GFR #### [place] [address] Platelet mean volume (Bld) [Entitic vol] 7.7 fL Normal 6.6-10.5 [facility] ([place]) Comment on above: Performed By: #### C BC, ADIFF, ANEU, BMP, GFR #### [place] [id number] RBC 2.79 10 6/mcL Low 4.10-5.30 [facility] ([place]) Comment on above: Performed By: #### C BC, ADIFF, ANEU, BMP, GFR #### [address] [address] WBC 8.70 10 3/mcL Normal 4.50-10.80 [facility] ([place]) Comment on above: Performed By: #### C BC, ADIFF, ANEU, BMP, GFR #### [address] [address] .Auto Diffon 03-27-2020 Basophil, Absolute 0.00 10 3/mcL Normal 0.00-0.27 [facility] ([place]) Comment on above: Performed By: #### C BC, ADIFF, ANEU, BMP, GFR #### [address] [address] Basophils/100 WBC (Bld) 0.4 % Normal 0.0-2.5 [facility] ([place]) Comment on above: Performed By: #### C BC, ADIFF, ANEU, BMP, GFR #### [address] [address] Eosinophil, Absolute 0.10 10 3/mcL Normal 0.00-0.65 [facility] ([place]) Comment on above: Performed By: #### C BC, ADIFF, ANEU, BMP, GFR #### [address] [address] Eosinophils/100 WBC (Bld) 0.9 % Normal 0.0-6.0 [facility] ([place]) Comment on above: Performed By: #### C BC, ADIFF, ANEU, BMP, GFR #### [address] [address] Lymphocyte, Absolute 0.80 10 3/mcL Low 0.90-4.32 [facility] ([place]) Comment on above: Performed By: #### C BC, ADIFF, ANEU, BMP, GFR #### [address] [address] Lymphocytes/100 WBC (Bld) 10.1 % Low 20.0-40.0 [facility] ([place]) Comment on above: Performed By: #### C BC, ADIFF, ANEU, BMP, GFR #### [address] [address] Monocyte, Absolute 1.00 10 3/mcL Normal 0.09-1.40 [facility] ([place]) Comment on above: Performed By: #### C BC, ADIFF, ANEU, BMP, GFR #### [address] [address] Monocytes/100 WBC (Bld) 13.9 % High 2.0-13.0 [facility] ([place]) Comment on above: Performed By: #### C BC, ADIFF, ANEU, BMP, GFR #### [address] [address] Neutrophils/100 WBC (Bld) 74.7 % Normal 50.0-75.0 [facility] ([place]) Comment on above: Performed By: #### C BC, ADIFF, ANEU, BMP, GFR #### [address] [address] .GFRon 03-27-2020 GFR 36 ml/min/1.73sqm Normal [facility] ([place]) Comment on above: Result Comment: GFR Population mean for , Non- Americans Ages 20-29 = 116 mL/min/1.73 sq.m. Ages 30-39 = 107 mL/min/1.73 sq.m. Ages 40-49 = 99 mL/min/1.73 sq.m. Ages 50-59 = 93 mL/min/1.73 sq.m. Ages 60-69 = 85 mL/min/1.73 sq.m. Ages 70+ = 75 mL/min/1.73 sq.m. Chronic Kidney Disease: Less than 60 mL/min/1.73 square meters End Stage Renal Disease: Less than 15 mL/min/1.73 square meters Performed By: #### C BC, ADIFF, ANEU, BMP, GFR #### [address] [address] GFR Non- 29 ml/min/1.73sqm Normal [facility] ([place]) Comment on above: Result Comment: GFR Population mean for , Non- Americans Ages 20-29 = 116 mL/min/1.73 sq.m. Ages 30-39 = 107 mL/min/1.73 sq.m. Ages 40-49 = 99 mL/min/1.73 sq.m. Ages 50-59 = 93 mL/min/1.73 sq.m. Ages 60-69 = 85 mL/min/1.73 sq.m. Ages 70+ = 75 mL/min/1.73 sq.m. Chronic Kidney Disease: Less than 60 mL/min/1.73 square meters End Stage Renal Disease: Less than 15 mL/min/1.73 square meters Performed By: #### C BC, ADIFF, ANEU, BMP, GFR #### [address] [address] .NEUABSon 03-27-2020 Neutrophil, Absolute 5.60 10 3/mcL Normal 2.25-8.10 [facility] ([place]) Comment on above: Performed By: #### C BC, ADIFF, ANEU, BMP, GFR #### [address] [address] BMPon 03-27-2020 BUN/Creatinine Ratio 14.9 ratio Normal 10.0-22.0 [facility] ([place]) Comment on above: Performed By: #### C BC, ADIFF, ANEU, BMP, GFR #### [address] [address] Calcium [Mass/Vol] 8.2 mg/dL Low 8.4-10.1 [facility] ([place]) Comment on above: Result Comment: No te - New Reference Range in effect 19 Performed By: #### C BC, ADIFF, ANEU, BMP, GFR #### [address] [address] Chloride [Moles/Vol] 107 mmol/L Normal 98-110 [facility] ([place]) Comment on above: Performed By: #### C BC, ADIFF, ANEU, BMP, GFR #### [address] [address] CO2 [Moles/Vol] 23 mmol/L Normal 22-32 [facility] ([place]) Comment on above: Performed By: #### C BC, ADIFF, ANEU, BMP, GFR #### [address] [address] Creatinine [Mass/Vol] 1.68 mg/dL High 0.50-1.20 [facility] ([place]) Comment on above: Performed By: #### C BC, ADIFF, ANEU, BMP, GFR #### [address] [address] Electrolyte Balance 8.0 mEq/L Normal 4.0-15.0 [facility] ([place]) Comment on above: Performed By: #### C BC, ADIFF, ANEU, BMP, GFR #### [address] [address] Glucose [Mass/Vol] 83 mg/dL Normal 82-115 [facility] ([place]) Comment on above: Performed By: #### C BC, ADIFF, ANEU, BMP, GFR #### [address] [address] Potassium [Moles/Vol] 3.7 mmol/L Normal 3.5-5.0 [facility] ([place]) Comment on above: Performed By: #### C BC, ADIFF, ANEU, BMP, GFR #### [address] [address] Sodium [Moles/Vol] 138 mmol/L Normal 136-145 [facility] ([place]) Comment on above: Performed By: #### C BC, ADIFF, ANEU, BMP, GFR #### [address] [address] Urea nitrogen [Mass/Vol] 25.0 mg/dL High 8.0-22.0 [facility] ([place]) Comment on above: Performed By: #### C BC, ADIFF, ANEU, BMP, GFR #### [address] [address] CBCon 03-27-2020 Erythrocyte distribution width (RBC) [Ratio] 15.2 % Normal 11.5-15.5 [facility] ([place]) Comment on above: Performed By: #### C BC, ADIFF, ANEU, BMP, GFR #### [place] [address] Hematocrit (Bld) [Volume fraction] 26.8 % Low 34.0-46.0 [facility] ([place]) Comment on above: Performed By: #### C BC, ADIFF, ANEU, BMP, GFR #### [place] [address] Hgb 9.0 G/dL Low 12.0-16.0 [facility] ([place]) Comment on above: Performed By: #### C BC, ADIFF, ANEU, BMP, GFR #### [place] [address] MCH (RBC) [Entitic mass] 31.4 pg Normal 27.0-33.0 [facility] ([place]) Comment on above: Performed By: #### C BC, ADIFF, ANEU, BMP, GFR #### [place] [address] MCHC 33.4 G/dL Normal 32.0-36.0 [facility] ([place]) Comment on above: Performed By: #### C BC, ADIFF, ANEU, BMP, GFR #### [place] [address] MCV (RBC) [Entitic vol] 93.8 fL Normal 80.0-99.0 [facility] ([place]) Comment on above: Performed By: #### C BC, ADIFF, ANEU, BMP, GFR #### [place] [address] Platelet 197 10 3/mcL Normal 150-450 [facility] ([place]) Comment on above: Performed By: #### C BC, ADIFF, ANEU, BMP, GFR #### [place] [address] Platelet mean volume (Bld) [Entitic vol] 7.6 fL Normal 6.6-10.5 [facility] ([place]) Comment on above: Performed By: #### C BC, ADIFF, ANEU, BMP, GFR #### [address] [address] RBC 2.86 10 6/mcL Low 4.10-5.30 [facility] ([place]) Comment on above: Performed By: #### C BC, ADIFF, ANEU, BMP, GFR #### [address] [address] WBC 7.50 10 3/mcL Normal 4.50-10.80 [facility] ([place]) Comment on above: Performed By: #### C BC, ADIFF, ANEU, BMP, GFR #### [address] [address] MGon 03-27-2020 Magnesium [Mass/Vol] 2.0 mg/dL Normal 1.6-2.4 [facility] ([place]) Comment on above: Performed By: #### C BC, ADIFF, ANEU, BMP, GFR #### [address] [address] .Auto Diffon 03-26-2020 Basophil, Absolute 0.00 10 3/mcL Normal 0.00-0.27 [facility] ([place]) Comment on above: Performed By: #### C BC, ADIFF, ANEU, BMP, GFR #### [place] [address] Basophils/100 WBC (Bld) 0.4 % Normal 0.0-2.5 [facility] ([place]) Comment on above: Performed By: #### C BC, ADIFF, ANEU, BMP, GFR #### [place] [id number] Eosinophil, Absolute 0.10 10 3/mcL Normal 0.00-0.65 [facility] ([place]) Comment on above: Performed By: #### C BC, ADIFF, ANEU, BMP, GFR #### [place] [id number] Eosinophils/100 WBC (Bld) 1.0 % Normal 0.0-6.0 [facility] ([place]) Comment on above: Performed By: #### C BC, ADIFF, ANEU, BMP, GFR #### [address] [address] Lymphocyte, Absolute 0.90 10 3/mcL Normal 0.90-4.32 [facility] ([place]) Comment on above: Performed By: #### C BC, ADIFF, ANEU, BMP, GFR #### [address] [address] Lymphocytes/100 WBC (Bld) 11.5 % Low 20.0-40.0 [facility] ([place]) Comment on above: Performed By: #### C BC, ADIFF, ANEU, BMP, GFR #### [address] [address] Monocyte, Absolute 1.10 10 3/mcL Normal 0.09-1.40 [facility] ([place]) Comment on above: Performed By: #### C BC, ADIFF, ANEU, BMP, GFR #### [address] [address] Monocytes/100 WBC (Bld) 13.7 % High 2.0-13.0 [facility] ([place]) Comment on above: Performed By: #### C BC, ADIFF, ANEU, BMP, GFR #### [address] [address] Neutrophils/100 WBC (Bld) 73.4 % Normal 50.0-75.0 [facility] ([place]) Comment on above: Performed By: #### C BC, ADIFF, ANEU, BMP, GFR #### [address] [address] .GFRon 03-26-2020 GFR 30 ml/min/1.73sqm Normal [facility] ([place]) Comment on above: Result Comment: GFR Population mean for , Non- Americans Ages 20-29 = 116 mL/min/1.73 sq.m. Ages 30-39 = 107 mL/min/1.73 sq.m. Ages 40-49 = 99 mL/min/1.73 sq.m. Ages 50-59 = 93 mL/min/1.73 sq.m. Ages 60-69 = 85 mL/min/1.73 sq.m. Ages 70+ = 75 mL/min/1.73 sq.m. Chronic Kidney Disease: Less than 60 mL/min/1.73 square meters End Stage Renal Disease: Less than 15 mL/min/1.73 square meters Performed By: #### C BC, ADIFF, ANEU, BMP, GFR #### [address] [address] GFR Non- 25 ml/min/1.73sqm Normal [facility] ([place]) Comment on above: Result Comment: GFR Population mean for , Non- Americans Ages 20-29 = 116 mL/min/1.73 sq.m. Ages 30-39 = 107 mL/min/1.73 sq.m. Ages 40-49 = 99 mL/min/1.73 sq.m. Ages 50-59 = 93 mL/min/1.73 sq.m. Ages 60-69 = 85 mL/min/1.73 sq.m. Ages 70+ = 75 mL/min/1.73 sq.m. Chronic Kidney Disease: Less than 60 mL/min/1.73 square meters End Stage Renal Disease: Less than 15 mL/min/1.73 square meters Performed By: #### C BC, ADIFF, ANEU, BMP, GFR #### [address] [address] .NEUABSon 03-26-2020 Neutrophil, Absolute 6.00 10 3/mcL Normal 2.25-8.10 [facility] ([place]) Comment on above: Performed By: #### C BC, ADIFF, ANEU, BMP, GFR #### [address] [address] [facility] BUN/Creatinine Ratio 15.0 ratio Normal 10.0-22.0 [facility] ([place]) Comment on above: Performed By: #### C BC, ADIFF, ANEU, BMP, GFR #### [address] [address] Calcium [Mass/Vol] 7.8 mg/dL Low 8.4-10.1 [facility] ([place]) Comment on above: Result Comment: No te - New Reference Range in effect 19 Performed By: #### C BC, ADIFF, ANEU, BMP, GFR #### [address] [address] Chloride [Moles/Vol] 107 mmol/L Normal 98-110 [facility] ([place]) Comment on above: Performed By: #### C BC, ADIFF, ANEU, BMP, GFR #### [address] [address] CO2 [Moles/Vol] 22 mmol/L Normal 22-32 [facility] ([place]) Comment on above: Performed By: #### C BC, ADIFF, ANEU, BMP, GFR #### [address] [address] Creatinine [Mass/Vol] 1.93 mg/dL High 0.50-1.20 [facility] ([place]) Comment on above: Performed By: #### C BC, ADIFF, ANEU, BMP, GFR #### [address] [address] Electrolyte Balance 8.0 mEq/L Normal 4.0-15.0 [facility] ([place]) Comment on above: Performed By: #### C BC, ADIFF, ANEU, BMP, GFR #### [address] [address] Glucose [Mass/Vol] 91 mg/dL Normal 82-115 [facility] ([place]) Comment on above: Performed By: #### C BC, ADIFF, ANEU, BMP, GFR #### [address] [address] Potassium [Moles/Vol] 3.8 mmol/L Normal 3.5-5.0 [facility] ([place]) Comment on above: Performed By: #### C BC, ADIFF, ANEU, BMP, GFR #### [address] [address] Sodium [Moles/Vol] 137 mmol/L Normal 136-145 [facility] ([place]) Comment on above: Performed By: #### C BC, ADIFF, ANEU, BMP, GFR #### [address] [address] Urea nitrogen [Mass/Vol] 29.0 mg/dL High 8.0-22.0 [facility] ([place]) Comment on above: Performed By: #### C BC, ADIFF, ANEU, BMP, GFR #### [place] [id number] CBCon 03-26-2020 Erythrocyte distribution width (RBC) [Ratio] 15.2 % Normal 11.5-15.5 [facility] ([place]) Comment on above: Performed By: #### C BC, ADIFF, ANEU, BMP, GFR #### [place] [address] Hematocrit (Bld) [Volume fraction] 25.6 % Low 34.0-46.0 [facility] ([place]) Comment on above: Performed By: #### C BC, ADIFF, ANEU, BMP, GFR #### [place] [address] Hgb 8.8 G/dL Low 12.0-16.0 [facility] ([place]) Comment on above: Performed By: #### C BC, ADIFF, ANEU, BMP, GFR #### [place] [address] MCH (RBC) [Entitic mass] 31.8 pg Normal 27.0-33.0 [facility] ([place]) Comment on above: Performed By: #### C BC, ADIFF, ANEU, BMP, GFR #### [place] [address] MCHC 34.3 G/dL Normal 32.0-36.0 [facility] ([place]) Comment on above: Performed By: #### C BC, ADIFF, ANEU, BMP, GFR #### [place] [address] MCV (RBC) [Entitic vol] 92.6 fL Normal 80.0-99.0 [facility] ([place]) Comment on above: Performed By: #### C BC, ADIFF, ANEU, BMP, GFR #### [place] [address] Platelet 163 10 3/mcL Normal 150-450 [facility] ([place]) Comment on above: Performed By: #### C BC, ADIFF, ANEU, BMP, GFR #### [place] [address] Platelet mean volume (Bld) [Entitic vol] 8.1 fL Normal 6.6-10.5 [facility] ([place]) Comment on above: Performed By: #### C BC, ADIFF, ANEU, BMP, GFR #### [place] [address] RBC 2.77 10 6/mcL Low 4.10-5.30 [facility] ([place]) Comment on above: Performed By: #### C BC, ADIFF, ANEU, BMP, GFR #### [place] [address] WBC 8.20 10 3/mcL Normal 4.50-10.80 [facility] ([place]) Comment on above: Performed By: #### C BC, ADIFF, ANEU, BMP, GFR #### [place] [address] Uma 03-26-2020 Ferritin [Mass/Vol] 45.6 ng/mL Normal 8.0-252.0 [facility] ([place]) Comment on above: Performed By: #### C BC, ADIFF, ANEU, BMP, GFR #### [place] [address] FESon 03-26-2020 Iron [Mass/Vol] 21 ug/dL Low 50-170 [facility] ([place]) Comment on above: Performed By: #### C BC, ADIFF, ANEU, BMP, GFR #### [place] [address] Iron Sat 9 % Normal [facility] ([place]) Comment on above: Performed By: #### C BC, ADIFF, ANEU, BMP, GFR #### [place] [address] TIBC 238 mcg/dL Low 250-500 [facility] ([place]) Comment on above: Performed By: #### C BC, ADIFF, ANEU, BMP, GFR #### [place] [address] MGon 03-26-2020 Magnesium [Mass/Vol] 2.1 mg/dL Normal 1.6-2.4 [facility] ([place]) Comment on above: Performed By: #### C BC, ADIFF, ANEU, BMP, GFR #### [address] [address] .Auto Diffon 03-25-2020 Basophil, Absolute 0.00 10 3/mcL Normal 0.00-0.27 [facility] ([place]) Comment on above: Performed By: #### A PTT #### [place] [id number] Basophils/100 WBC (Bld) 0.1 % Normal 0.0-2.5 [facility] ([place]) Comment on above: Performed By: #### A PTT #### [address] [address] Eosinophil, Absolute 0.00 10 3/mcL Normal 0.00-0.65 [facility] ([place]) Comment on above: Performed By: #### A PTT #### [address] [address] Eosinophils/100 WBC (Bld) 0.4 % Normal 0.0-6.0 [facility] ([place]) Comment on above: Performed By: #### A PTT #### [address] [address] Lymphocyte, Absolute 0.70 10 3/mcL Low 0.90-4.32 [facility] ([place]) Comment on above: Performed By: #### A PTT #### [place] [id number] Lymphocytes/100 WBC (Bld) 7.8 % Low 20.0-40.0 [facility] ([place]) Comment on above: Performed By: #### A PTT #### [address] [address] Monocyte, Absolute 1.20 10 3/mcL Normal 0.09-1.40 [facility] ([place]) Comment on above: Performed By: #### A PTT #### [address] [address] Monocytes/100 WBC (Bld) 13.8 % High 2.0-13.0 [facility] ([place]) Comment on above: Performed By: #### A PTT #### [address] [address] Neutrophils/100 WBC (Bld) 77.9 % High 50.0-75.0 [facility] ([place]) Comment on above: Performed By: #### A PTT #### [address] [address] .GFRon 03-25-2020 GFR 28 ml/min/1.73sqm Normal [facility] ([place]) Comment on above: Result Comment: GFR Population mean for , Non- Americans Ages 20-29 = 116 mL/min/1.73 sq.m. Ages 30-39 = 107 mL/min/1.73 sq.m. Ages 40-49 = 99 mL/min/1.73 sq.m. Ages 50-59 = 93 mL/min/1.73 sq.m. Ages 60-69 = 85 mL/min/1.73 sq.m. Ages 70+ = 75 mL/min/1.73 sq.m. Chronic Kidney Disease: Less than 60 mL/min/1.73 square meters End Stage Renal Disease: Less than 15 mL/min/1.73 square meters Performed By: #### A PTT #### [address] [address] GFR Non- 23 ml/min/1.73sqm Normal [facility] ([place]) Comment on above: Result Comment: GFR Population mean for , Non- Americans Ages 20-29 = 116 mL/min/1.73 sq.m. Ages 30-39 = 107 mL/min/1.73 sq.m. Ages 40-49 = 99 mL/min/1.73 sq.m. Ages 50-59 = 93 mL/min/1.73 sq.m. Ages 60-69 = 85 mL/min/1.73 sq.m. Ages 70+ = 75 mL/min/1.73 sq.m. Chronic Kidney Disease: Less than 60 mL/min/1.73 square meters End Stage Renal Disease: Less than 15 mL/min/1.73 square meters Performed By: #### A PTT #### [address] [address] .NEUABSon 03-25-2020 Neutrophil, Absolute 6.60 10 3/mcL Normal 2.25-8.10 [facility] ([place]) Comment on above: Performed By: #### A PTT #### [address] [address] BMPon 03-25-2020 BUN/Creatinine Ratio 14.6 ratio Normal 10.0-22.0 [facility] ([place]) Comment on above: Performed By: #### A PTT #### [place] [id number] Calcium [Mass/Vol] 7.6 mg/dL Low 8.4-10.1 [facility] ([place]) Comment on above: Result Comment: No te - New Reference Range in effect 19 Performed By: #### A PTT #### [place] [id number] Chloride [Moles/Vol] 104 mmol/L Normal 98-110 [facility] ([place]) Comment on above: Performed By: #### A PTT #### [place] [id number] CO2 [Moles/Vol] 22 mmol/L Normal 22-32 [facility] ([place]) Comment on above: Performed By: #### A PTT #### [place] [id number] Creatinine [Mass/Vol] 2.06 mg/dL High 0.50-1.20 [facility] ([place]) Comment on above: Performed By: #### A PTT #### [place] [id number] Electrolyte Balance 8.0 mEq/L Normal 4.0-15.0 [facility] ([place]) Comment on above: Performed By: #### A PTT #### [place] [id number] Glucose [Mass/Vol] 110 mg/dL Normal 82-115 [facility] ([place]) Comment on above: Performed By: #### A PTT #### [address] [address] Potassium [Moles/Vol] 3.7 mmol/L Normal 3.5-5.0 [facility] ([place]) Comment on above: Performed By: #### A PTT #### [address] [address] Sodium [Moles/Vol] 134 mmol/L Low 136-145 [facility] ([place]) Comment on above: Performed By: #### A PTT #### [place] [id number] Urea nitrogen [Mass/Vol] 30.0 mg/dL High 8.0-22.0 [facility] ([place]) Comment on above: Performed By: #### A PTT #### [place] [address] CBCon 03-25-2020 Erythrocyte distribution width (RBC) [Ratio] 15.2 % Normal 11.5-15.5 [facility] ([place]) Comment on above: Performed By: #### A PTT #### [place] [id number] Hematocrit (Bld) [Volume fraction] 25.9 % Low 34.0-46.0 [facility] ([place]) Comment on above: Performed By: #### A PTT #### [place] [address] Hgb 8.7 G/dL Low 12.0-16.0 [facility] ([place]) Comment on above: Performed By: #### A PTT #### [address] [address] MCH (RBC) [Entitic mass] 31.3 pg Normal 27.0-33.0 [facility] ([place]) Comment on above: Performed By: #### A PTT #### [place] [id number] MCHC 33.6 G/dL Normal 32.0-36.0 [facility] ([place]) Comment on above: Performed By: #### A PTT #### [address] [address] MCV (RBC) [Entitic vol] 93.2 fL Normal 80.0-99.0 [facility] ([place]) Comment on above: Performed By: #### A PTT #### [place] [id number] Platelet 141 10 3/mcL Low 150-450 [facility] ([place]) Comment on above: Performed By: #### A PTT #### [address] [address] Platelet mean volume (Bld) [Entitic vol] 8.0 fL Normal 6.6-10.5 [facility] ([place]) Comment on above: Performed By: #### A PTT #### [place] [id number] RBC 2.78 10 6/mcL Low 4.10-5.30 [facility] ([place]) Comment on above: Performed By: #### A PTT #### [place] [id number] WBC 8.50 10 3/mcL Normal 4.50-10.80 [facility] ([place]) Comment on above: Performed By: #### A PTT #### [place] [address] CORTAon 03-25-2020 Cortisol, AM 28.9 mcg/dL High 6.5-26.0 [facility] ([place]) Comment on above: Performed By: #### C BC, ADIFF, ANEU, BMP, GFR #### [place] [address] EOSon 03-25-2020 Eos Smear 0 Normal [facility] ([place]) Comment on above: Result Comment: The units for an eosinophil smear depend upon specimen type: Stool, sputum, nasal specimens: number of cells/hp field Urine, bronchial lavage: number of cells/100 cells (%) Performed By: #### C BC, ADIFF, ANEU, BMP, GFR #### [place] [id number] MGon 03-25-2020 Magnesium [Mass/Vol] 2.2 mg/dL Normal 1.6-2.4 [facility] ([place]) Comment on above: Performed By: #### A PTT #### [address] [address] TSHon 03-25-2020 TSH 2.891 mIU/mL Normal 0.550-4.780 [facility] ([place]) Comment on above: Result Comment: No te - New Reference Range in effect 19 Performed By: #### C BC, ADIFF, ANEU, BMP, GFR #### [address] [address] XR CHEST 1 VIEWon 03-25-2020 XR CHEST 1 VIEW ORIGINAL XR CHEST 1 VIEW 9:30 PM CLINICAL STATEMENT: Shortness of breath. COMPARISON: 03/24/2020 FINDINGS: RIGHT internal jugular central line terminates in the SVC. The heart size is normal. There is no vascular congestion. There is no focal consolidation. Gas lucency in the upper abdomen may relate to stomach or large bowel. IMPRESSION: No evidence of vascular congestion. Findings are similar to previous exam. Interpreted By: Maye Reyes MD Preliminary Report By: Maye Reyes MD Electronically Signed By: Maye Reyes MD Dictated Date: 03/25/2020 9:36:16 PM Prelim Date: 03/25/2020 9:36:16 PM Sign Date: 03/25/2020 9:38:00 PM Ordering Provider:Jose Carlos Bravo [facility] ([place]) .Auto Diffon 03-24-2020 Basophil, Absolute 0.00 10 3/mcL Normal 0.00-0.27 [facility] ([place]) Comment on above: Performed By: #### C BC, ADIFF, ANEU, APTT, PRO #### [address] [address] Basophils/100 WBC (Bld) 0.2 % Normal 0.0-2.5 [facility] ([place]) Comment on above: Performed By: #### C BC, ADIFF, ANEU, APTT, PRO #### [address] [address] Eosinophil, Absolute 0.00 10 3/mcL Normal 0.00-0.65 [facility] ([place]) Comment on above: Performed By: #### C BC, ADIFF, ANEU, APTT, PRO #### [address] [address] Eosinophils/100 WBC (Bld) 0.0 % Normal 0.0-6.0 [facility] ([place]) Comment on above: Performed By: #### C BC, ADIFF, ANEU, APTT, PRO #### [address] [address] Lymphocyte, Absolute 1.30 10 3/mcL Normal 0.90-4.32 [facility] ([place]) Comment on above: Performed By: #### C BC, ADIFF, ANEU, APTT, PRO #### [address] [address] Lymphocytes/100 WBC (Bld) 10.4 % Low 20.0-40.0 [facility] ([place]) Comment on above: Performed By: #### C BC, ADIFF, ANEU, APTT, PRO #### [address] [address] Monocyte, Absolute 1.80 10 3/mcL High 0.09-1.40 [facility] ([place]) Comment on above: Performed By: #### C BC, ADIFF, ANEU, APTT, PRO #### [address] [address] Monocytes/100 WBC (Bld) 14.4 % High 2.0-13.0 [facility] ([place]) Comment on above: Performed By: #### C BC, ADIFF, ANEU, APTT, PRO #### [address] [address] Neutrophils/100 WBC (Bld) 75.0 % Normal 50.0-75.0 [facility] ([place]) Comment on above: Performed By: #### C BC, ADIFF, ANEU, APTT, PRO #### [address] [address] .GFRon 03-24-2020 GFR Non- 24 ml/min/1.73sqm Normal [facility] ([place]) Comment on above: Result Comment: GFR Population mean for , Non- Americans Ages 20-29 = 116 mL/min/1.73 sq.m. Ages 30-39 = 107 mL/min/1.73 sq.m. Ages 40-49 = 99 mL/min/1.73 sq.m. Ages 50-59 = 93 mL/min/1.73 sq.m. Ages 60-69 = 85 mL/min/1.73 sq.m. Ages 70+ = 75 mL/min/1.73 sq.m. Chronic Kidney Disease: Less than 60 mL/min/1.73 square meters End Stage Renal Disease: Less than 15 mL/min/1.73 square meters Performed By: #### A PTT #### [address] [address] GFR 29 ml/min/1.73sqm Normal [facility] ([place]) Comment on above: Result Comment: GFR Population mean for , Non- Americans Ages 20-29 = 116 mL/min/1.73 sq.m. Ages 30-39 = 107 mL/min/1.73 sq.m. Ages 40-49 = 99 mL/min/1.73 sq.m. Ages 50-59 = 93 mL/min/1.73 sq.m. Ages 60-69 = 85 mL/min/1.73 sq.m. Ages 70+ = 75 mL/min/1.73 sq.m. Chronic Kidney Disease: Less than 60 mL/min/1.73 square meters End Stage Renal Disease: Less than 15 mL/min/1.73 square meters Performed By: #### A PTT #### [address] [address] .NEUABSon 03-24-2020 Neutrophil, Absolute 9.40 10 3/mcL High 2.25-8.10 [facility] ([place]) Comment on above: Performed By: #### C BC, ADIFF, ANEU, APTT, PRO #### [address] [address] BMPon 03-24-2020 BUN/Creatinine Ratio 13.4 ratio Normal 10.0-22.0 [facility] ([place]) Comment on above: Performed By: #### C BC, ADIFF, ANEU, APTT, PRO #### [address] [address] Calcium [Mass/Vol] 7.7 mg/dL Low 8.4-10.1 [facility] ([place]) Comment on above: Result Comment: No te - New Reference Range in effect 19 Performed By: #### C BC, ADIFF, ANEU, APTT, PRO #### [address] [address] Chloride [Moles/Vol] 104 mmol/L Normal 98-110 [facility] ([place]) Comment on above: Performed By: #### C BC, ADIFF, ANEU, APTT, PRO #### [address] [address] CO2 [Moles/Vol] 22 mmol/L Normal 22-32 [facility] ([place]) Comment on above: Performed By: #### C BC, ADIFF, ANEU, APTT, PRO #### [address] [address] Creatinine [Mass/Vol] 2.01 mg/dL High 0.50-1.20 [facility] ([place]) Comment on above: Performed By: #### C BC, ADIFF, ANEU, APTT, PRO #### [address] [address] Electrolyte Balance 10.0 mEq/L Normal 4.0-15.0 [facility] ([place]) Comment on above: Performed By: #### C BC, ADIFF, ANEU, APTT, PRO #### [address] [address] Glucose [Mass/Vol] 99 mg/dL Normal 82-115 [facility] ([place]) Comment on above: Performed By: #### C BC, ADIFF, ANEU, APTT, PRO #### [address] [address] Potassium [Moles/Vol] 4.0 mmol/L Normal 3.5-5.0 [facility] ([place]) Comment on above: Performed By: #### C BC, ADIFF, ANEU, APTT, PRO #### [place] [id number] Sodium [Moles/Vol] 136 mmol/L Normal 136-145 [facility] ([place]) Comment on above: Performed By: #### C BC, ADIFF, ANEU, APTT, PRO #### [place] [id number] Urea nitrogen [Mass/Vol] 27.0 mg/dL High 8.0-22.0 [facility] ([place]) Comment on above: Performed By: #### C BC, ADIFF, ANEU, APTT, PRO #### [place] [id number] CBCon 03-24-2020 Erythrocyte distribution width (RBC) [Ratio] 15.7 % High 11.5-15.5 [facility] ([place]) Comment on above: Performed By: #### C BC, ADIFF, ANEU, APTT, PRO #### [place] [address] Hematocrit (Bld) [Volume fraction] 28.6 % Low 34.0-46.0 [facility] ([place]) Comment on above: Performed By: #### C BC, ADIFF, ANEU, APTT, PRO #### [place] [id number] Hgb 9.9 G/dL Low 12.0-16.0 [facility] ([place]) Comment on above: Performed By: #### C BC, ADIFF, ANEU, APTT, PRO #### [address] [address] MCH (RBC) [Entitic mass] 31.9 pg Normal 27.0-33.0 [facility] ([place]) Comment on above: Performed By: #### C BC, ADIFF, ANEU, APTT, PRO #### [place] [id number] MCHC 34.5 G/dL Normal 32.0-36.0 [facility] ([place]) Comment on above: Performed By: #### C BC, ADIFF, ANEU, APTT, PRO #### [address] [address] MCV (RBC) [Entitic vol] 92.4 fL Normal 80.0-99.0 [facility] ([place]) Comment on above: Performed By: #### C BC, ADIFF, ANEU, APTT, PRO #### [place] [address] Platelet 149 10 3/mcL Low 150-450 [facility] ([place]) Comment on above: Performed By: #### C BC, ADIFF, ANEU, APTT, PRO #### [place] [address] Platelet mean volume (Bld) [Entitic vol] 8.0 fL Normal 6.6-10.5 [facility] ([place]) Comment on above: Performed By: #### C BC, ADIFF, ANEU, APTT, PRO #### [place] [address] RBC 3.10 10 6/mcL Low 4.10-5.30 [facility] ([place]) Comment on above: Performed By: #### C BC, ADIFF, ANEU, APTT, PRO #### [place] [address] WBC 12.50 10 3/mcL High 4.50-10.80 On license of [facility] ([place]) Comment on above: Performed By: #### C BC, ADIFF, ANEU, APTT, PRO #### [place] [id number] EOSon 03-24-2020 Eosinophil Spec Type Urine Normal [facility] ([place]) Comment on above: Performed By: #### C BC, ADIFF, ANEU, BMP, GFR #### [place] [address] MGon 03-24-2020 Magnesium [Mass/Vol] 2.4 mg/dL Normal 1.6-2.4 [facility] ([place]) Comment on above: Performed By: #### A PTT #### [place] [address] NAURon 03-24-2020 Sodium [Moles/Vol] 23 mmol/L Normal [facility] ([place]) Comment on above: Performed By: #### A PTT #### [address] [address] XR CHEST 1 VIEWon 03-24-2020 XR CHEST 1 VIEW ORIGINAL XR CHEST 1 VIEW Clinical Statement: dyspnea COMPARISON: 03/22/2020 FINDINGS: RIGHT central line remains stable. There is no focal consolidation. No pleural fluid or pneumothorax. The heart size is within normal limits. No aggressive osseous lesions are identified and there are no visible acute fractures. IMPRESSION: No acute pulmonary consolidation. Interpreted By: Andres Mendiola Preliminary Report By: Andres Mendiola Electronically Signed By: Andres Mendiola Dictated Date: 03/24/2020 10:39:27 AM Prelim Date: 03/24/2020 10:39:27 AM Sign Date: 03/24/2020 10:41:28 AM Ordering Provider:Lincoln Bravo [facility] ([place]) .Auto Diffon 03-23-2020 Basophil, Absolute 0.00 10 3/mcL Normal 0.00-0.27 [facility] ([place]) Comment on above: Performed By: #### C BC, ADIFF, ANEU, APTT, PRO #### [address] [address] Basophils/100 WBC (Bld) 0.2 % Normal 0.0-2.5 [facility] ([place]) Comment on above: Performed By: #### C BC, ADIFF, ANEU, APTT, PRO #### [address] [address] Eosinophil, Absolute 0.00 10 3/mcL Normal 0.00-0.65 [facility] ([place]) Comment on above: Performed By: #### C BC, ADIFF, ANEU, APTT, PRO #### [address] [address] Eosinophils/100 WBC (Bld) 0.0 % Normal 0.0-6.0 [facility] ([place]) Comment on above: Performed By: #### C BC, ADIFF, ANEU, APTT, PRO #### [address] [address] Lymphocyte, Absolute 1.50 10 3/mcL Normal 0.90-4.32 [facility] ([place]) Comment on above: Performed By: #### C BC, ADIFF, ANEU, APTT, PRO #### [address] [address] Lymphocytes/100 WBC (Bld) 9.2 % Low 20.0-40.0 [facility] ([place]) Comment on above: Performed By: #### C BC, ADIFF, ANEU, APTT, PRO #### [address] [address] Monocyte, Absolute 2.10 10 3/mcL High 0.09-1.40 [facility] ([place]) Comment on above: Performed By: #### C BC, ADIFF, ANEU, APTT, PRO #### [address] [address] Monocytes/100 WBC (Bld) 13.2 % High 2.0-13.0 [facility] ([place]) Comment on above: Performed By: #### C BC, ADIFF, ANEU, APTT, PRO #### [address] [address] Neutrophils/100 WBC (Bld) 77.4 % High 50.0-75.0 [facility] ([place]) Comment on above: Performed By: #### C BC, ADIFF, ANEU, APTT, PRO #### [address] [address] Basophil, Absolute 0.00 10 3/mcL Normal 0.00-0.27 [facility] ([place]) Comment on above: Performed By: #### C BC, ADIFF, ANEU, APTT, PRO #### [address] [address] Basophils/100 WBC (Bld) 0.1 % Normal 0.0-2.5 [facility] ([place]) Comment on above: Performed By: #### C BC, ADIFF, ANEU, APTT, PRO #### [address] [address] Eosinophil, Absolute 0.00 10 3/mcL Normal 0.00-0.65 [facility] ([place]) Comment on above: Performed By: #### C BC, ADIFF, ANEU, APTT, PRO #### [address] [address] Eosinophils/100 WBC (Bld) 0.0 % Normal 0.0-6.0 [facility] ([place]) Comment on above: Performed By: #### C BC, ADIFF, ANEU, APTT, PRO #### [address] [address] Lymphocyte, Absolute 1.00 10 3/mcL Normal 0.90-4.32 [facility] ([place]) Comment on above: Performed By: #### C BC, ADIFF, ANEU, APTT, PRO #### [address] [address] Lymphocytes/100 WBC (Bld) 6.8 % Low 20.0-40.0 [facility] ([place]) Comment on above: Performed By: #### C BC, ADIFF, ANEU, APTT, PRO #### [address] [address] Monocyte, Absolute 1.50 10 3/mcL High 0.09-1.40 [facility] ([place]) Comment on above: Performed By: #### C BC, ADIFF, ANEU, APTT, PRO #### [address] [address] Monocytes/100 WBC (Bld) 9.8 % Normal 2.0-13.0 [facility] ([place]) Comment on above: Performed By: #### C BC, ADIFF, ANEU, APTT, PRO #### [address] [address] Neutrophils/100 WBC (Bld) 83.3 % High 50.0-75.0 [facility] ([place]) Comment on above: Performed By: #### C BC, ADIFF, ANEU, APTT, PRO #### [address] [address] Basophil, Absolute 0.00 10 3/mcL Normal 0.00-0.27 [facility] ([place]) Comment on above: Performed By: #### C BC, ADIFF, ANEU, APTT, PRO #### [address] [address] Basophils/100 WBC (Bld) 0.1 % Normal 0.0-2.5 [facility] ([place]) Comment on above: Performed By: #### C BC, ADIFF, ANEU, APTT, PRO #### [address] [address] Eosinophil, Absolute 0.00 10 3/mcL Normal 0.00-0.65 [facility] ([place]) Comment on above: Performed By: #### C BC, ADIFF, ANEU, APTT, PRO #### [address] [address] Eosinophils/100 WBC (Bld) 0.0 % Normal 0.0-6.0 [facility] ([place]) Comment on above: Performed By: #### C BC, ADIFF, ANEU, APTT, PRO #### [address] [address] Lymphocyte, Absolute 1.20 10 3/mcL Normal 0.90-4.32 [facility] ([place]) Comment on above: Performed By: #### C BC, ADIFF, ANEU, APTT, PRO #### [address] [address] Lymphocytes/100 WBC (Bld) 5.6 % Low 20.0-40.0 [facility] ([place]) Comment on above: Performed By: #### C BC, ADIFF, ANEU, APTT, PRO #### [address] [address] Monocyte, Absolute 2.20 10 3/mcL High 0.09-1.40 [facility] ([place]) Comment on above: Performed By: #### C BC, ADIFF, ANEU, APTT, PRO #### [address] [address] Monocytes/100 WBC (Bld) 10.0 % Normal 2.0-13.0 [facility] ([place]) Comment on above: Performed By: #### C BC, ADIFF, ANEU, APTT, PRO #### [address] [address] Neutrophils/100 WBC (Bld) 84.3 % High 50.0-75.0 [facility] ([place]) Comment on above: Performed By: #### C BC, ADIFF, ANEU, APTT, PRO #### [address] [address] .GFRon 03-23-2020 GFR 43 ml/min/1.73sqm Normal [facility] ([place]) Comment on above: Result Comment: GFR Population mean for , Non- Americans Ages 20-29 = 116 mL/min/1.73 sq.m. Ages 30-39 = 107 mL/min/1.73 sq.m. Ages 40-49 = 99 mL/min/1.73 sq.m. Ages 50-59 = 93 mL/min/1.73 sq.m. Ages 60-69 = 85 mL/min/1.73 sq.m. Ages 70+ = 75 mL/min/1.73 sq.m. Chronic Kidney Disease: Less than 60 mL/min/1.73 square meters End Stage Renal Disease: Less than 15 mL/min/1.73 square meters Performed By: #### C BC, ADIFF, ANEU, APTT, PRO #### [address] [address] GFR Non- 35 ml/min/1.73sqm Normal [facility] ([place]) Comment on above: Result Comment: GFR Population mean for , Non- Americans Ages 20-29 = 116 mL/min/1.73 sq.m. Ages 30-39 = 107 mL/min/1.73 sq.m. Ages 40-49 = 99 mL/min/1.73 sq.m. Ages 50-59 = 93 mL/min/1.73 sq.m. Ages 60-69 = 85 mL/min/1.73 sq.m. Ages 70+ = 75 mL/min/1.73 sq.m. Chronic Kidney Disease: Less than 60 mL/min/1.73 square meters End Stage Renal Disease: Less than 15 mL/min/1.73 square meters Performed By: #### C BC, ADIFF, ANEU, APTT, PRO #### [place] [address] GFR 55 ml/min/1.73sqm Normal [facility] ([place]) Comment on above: Result Comment: GFR Population mean for , Non- Americans Ages 20-29 = 116 mL/min/1.73 sq.m. Ages 30-39 = 107 mL/min/1.73 sq.m. Ages 40-49 = 99 mL/min/1.73 sq.m. Ages 50-59 = 93 mL/min/1.73 sq.m. Ages 60-69 = 85 mL/min/1.73 sq.m. Ages 70+ = 75 mL/min/1.73 sq.m. Chronic Kidney Disease: Less than 60 mL/min/1.73 square meters End Stage Renal Disease: Less than 15 mL/min/1.73 square meters Performed By: #### C BC, ADIFF, ANEU, APTT, PRO #### [place] [address] GFR Non- 45 ml/min/1.73sqm Normal [facility] ([place]) Comment on above: Result Comment: GFR Population mean for , Non- Americans Ages 20-29 = 116 mL/min/1.73 sq.m. Ages 30-39 = 107 mL/min/1.73 sq.m. Ages 40-49 = 99 mL/min/1.73 sq.m. Ages 50-59 = 93 mL/min/1.73 sq.m. Ages 60-69 = 85 mL/min/1.73 sq.m. Ages 70+ = 75 mL/min/1.73 sq.m. Chronic Kidney Disease: Less than 60 mL/min/1.73 square meters End Stage Renal Disease: Less than 15 mL/min/1.73 square meters Performed By: #### C BC, ADIFF, ANEU, APTT, PRO #### [place] [address] .NEUABSon 03-23-2020 Neutrophil, Absolute 12.20 10 3/mcL High 2.25-8.10 [facility] ([place]) Comment on above: Performed By: #### C BC, ADIFF, ANEU, APTT, PRO #### [address] [address] Neutrophil, Absolute 12.40 10 3/mcL High 2.25-8.10 [facility] ([place]) Comment on above: Performed By: #### C BC, ADIFF, ANEU, APTT, PRO #### [address] [address] Neutrophil, Absolute 18.40 10 3/mcL High 2.25-8.10 [facility] ([place]) Comment on above: Performed By: #### C BC, ADIFF, ANEU, APTT, PRO #### [address] [address] BMPon 03-23-2020 BUN/Creatinine Ratio 14.7 ratio Normal 10.0-22.0 [facility] ([place]) Comment on above: Performed By: #### C BC, ADIFF, ANEU, APTT, PRO #### [place] [address] Calcium [Mass/Vol] 7.2 mg/dL Low 8.4-10.1 [facility] ([place]) Comment on above: Result Comment: No te - New Reference Range in effect 19 Performed By: #### C BC, ADIFF, ANEU, APTT, PRO #### [place] [address] Chloride [Moles/Vol] 111 mmol/L High 98-110 [facility] ([place]) Comment on above: Performed By: #### C BC, ADIFF, ANEU, APTT, PRO #### [address] [address] CO2 [Moles/Vol] 22 mmol/L Normal 22-32 [facility] ([place]) Comment on above: Performed By: #### C BC, ADIFF, ANEU, APTT, PRO #### [place] [address] Creatinine [Mass/Vol] 1.43 mg/dL High 0.50-1.20 [facility] ([place]) Comment on above: Performed By: #### C BC, ADIFF, ANEU, APTT, PRO #### [address] [address] Electrolyte Balance 8.0 mEq/L Normal 4.0-15.0 [facility] ([place]) Comment on above: Performed By: #### C BC, ADIFF, ANEU, APTT, PRO #### [place] [id number] Glucose [Mass/Vol] 125 mg/dL High 82-115 [facility] ([place]) Comment on above: Performed By: #### C BC, ADIFF, ANEU, APTT, PRO #### [place] [address] Potassium [Moles/Vol] 4.3 mmol/L Normal 3.5-5.0 [facility] ([place]) Comment on above: Performed By: #### C BC, ADIFF, ANEU, APTT, PRO #### [place] [address] Sodium [Moles/Vol] 141 mmol/L Normal 136-145 [facility] ([place]) Comment on above: Performed By: #### C BC, ADIFF, ANEU, APTT, PRO #### [place] [address] Urea nitrogen [Mass/Vol] 21.0 mg/dL Normal 8.0-22.0 [facility] ([place]) Comment on above: Performed By: #### C BC, ADIFF, ANEU, APTT, PRO #### [address] [address] CBCon 03-23-2020 Erythrocyte distribution width (RBC) [Ratio] 15.9 % High 11.5-15.5 [facility] ([place]) Comment on above: Performed By: #### C BC, ADIFF, ANEU, APTT, PRO #### [address] [address] Hematocrit (Bld) [Volume fraction] 30.7 % Low 34.0-46.0 [facility] ([place]) Comment on above: Performed By: #### C BC, ADIFF, ANEU, APTT, PRO #### [place] [address] Hgb 10.5 G/dL Low 12.0-16.0 [facility] ([place]) Comment on above: Performed By: #### C BC, ADIFF, ANEU, APTT, PRO #### [place] [address] MCH (RBC) [Entitic mass] 31.6 pg Normal 27.0-33.0 [facility] ([place]) Comment on above: Performed By: #### C BC, ADIFF, ANEU, APTT, PRO #### [place] [address] MCHC 34.4 G/dL Normal 32.0-36.0 [facility] ([place]) Comment on above: Performed By: #### C BC, ADIFF, ANEU, APTT, PRO #### [place] [address] MCV (RBC) [Entitic vol] 92.0 fL Normal 80.0-99.0 [facility] ([place]) Comment on above: Performed By: #### C BC, ADIFF, ANEU, APTT, PRO #### [place] [address] Platelet 165 10 3/mcL Normal 150-450 [facility] ([place]) Comment on above: Performed By: #### C BC, ADIFF, ANEU, APTT, PRO #### [place] [address] Platelet mean volume (Bld) [Entitic vol] 7.5 fL Normal 6.6-10.5 [facility] ([place]) Comment on above: Performed By: #### C BC, ADIFF, ANEU, APTT, PRO #### [place] [address] RBC 3.33 10 6/mcL Low 4.10-5.30 [facility] ([place]) Comment on above: Performed By: #### C BC, ADIFF, ANEU, APTT, PRO #### [address] [address] WBC 15.80 10 3/mcL High 4.50-10.80 On license of [facility] ([place]) Comment on above: Performed By: #### C BC, ADIFF, ANEU, APTT, PRO #### [address] [address] Erythrocyte distribution width (RBC) [Ratio] 15.6 % High 11.5-15.5 [facility] ([place]) Comment on above: Performed By: #### C BC, ADIFF, ANEU, APTT, PRO #### [place] [address] Hematocrit (Bld) [Volume fraction] 34.7 % Normal 34.0-46.0 [facility] ([place]) Comment on above: Performed By: #### C BC, ADIFF, ANEU, APTT, PRO #### [place] [id number] Hgb 11.7 G/dL Low 12.0-16.0 [facility] ([place]) Comment on above: Performed By: #### C BC, ADIFF, ANEU, APTT, PRO #### [place] [id number] MCH (RBC) [Entitic mass] 31.1 pg Normal 27.0-33.0 [facility] ([place]) Comment on above: Performed By: #### C BC, ADIFF, ANEU, APTT, PRO #### [place] [id number] MCHC 33.6 G/dL Normal 32.0-36.0 [facility] ([place]) Comment on above: Performed By: #### C BC, ADIFF, ANEU, APTT, PRO #### [place] [id number] MCV (RBC) [Entitic vol] 92.7 fL Normal 80.0-99.0 [facility] ([place]) Comment on above: Performed By: #### C BC, ADIFF, ANEU, APTT, PRO #### [place] [id number] Platelet 161 10 3/mcL Normal 150-450 [facility] ([place]) Comment on above: Performed By: #### C BC, ADIFF, ANEU, APTT, PRO #### [place] [address] Platelet mean volume (Bld) [Entitic vol] 8.0 fL Normal 6.6-10.5 [facility] ([place]) Comment on above: Performed By: #### C BC, ADIFF, ANEU, APTT, PRO #### [place] [address] RBC 3.75 10 6/mcL Low 4.10-5.30 [facility] ([place]) Comment on above: Performed By: #### C BC, ADIFF, ANEU, APTT, PRO #### [place] [address] WBC 14.80 10 3/mcL High 4.50-10.80 On license of [facility] ([place]) Comment on above: Performed By: #### C BC, ADIFF, ANEU, APTT, PRO #### [place] [address] Erythrocyte distribution width (RBC) [Ratio] 15.5 % Normal 11.5-15.5 [facility] ([place]) Comment on above: Performed By: #### C BC, ADIFF, ANEU, APTT, PRO #### [place] [address] Hematocrit (Bld) [Volume fraction] 36.5 % Normal 34.0-46.0 [facility] ([place]) Comment on above: Performed By: #### C BC, ADIFF, ANEU, APTT, PRO #### [place] [address] Hgb 12.0 G/dL Normal 12.0-16.0 [facility] ([place]) Comment on above: Performed By: #### C BC, ADIFF, ANEU, APTT, PRO #### [place] [address] MCH (RBC) [Entitic mass] 31.4 pg Normal 27.0-33.0 [facility] ([place]) Comment on above: Performed By: #### C BC, ADIFF, ANEU, APTT, PRO #### [place] [address] MCHC 32.7 G/dL Normal 32.0-36.0 [facility] ([place]) Comment on above: Performed By: #### C BC, ADIFF, ANEU, APTT, PRO #### [place] [address] MCV (RBC) [Entitic vol] 96.0 fL Normal 80.0-99.0 [facility] ([place]) Comment on above: Performed By: #### C BC, ADIFF, ANEU, APTT, PRO #### [place] [address] Platelet 259 10 3/mcL Normal 150-450 [facility] ([place]) Comment on above: Performed By: #### C BC, ADIFF, ANEU, APTT, PRO #### [place] [address] Platelet mean volume (Bld) [Entitic vol] 7.8 fL Normal 6.6-10.5 [facility] ([place]) Comment on above: Performed By: #### C BC, ADIFF, ANEU, APTT, PRO #### [place] [address] RBC 3.81 10 6/mcL Low 4.10-5.30 [facility] ([place]) Comment on above: Performed By: #### C BC, ADIFF, ANEU, APTT, PRO #### [place] [address] WBC 21.80 10 3/mcL High 4.50-10.80 On license of [facility] ([place]) Comment on above: Performed By: #### C BC, ADIFF, ANEU, APTT, PRO #### [place] [address] CMPon 03-23-2020 Calcium [Mass/Vol] 7.7 mg/dL Low 8.4-10.1 [facility] ([place]) Comment on above: Result Comment: No te - New Reference Range in effect 19 Performed By: #### C BC, ADIFF, ANEU, APTT, PRO #### [address] [address] CO2 [Moles/Vol] 16 mmol/L Low 22-32 [facility] ([place]) Comment on above: Performed By: #### C BC, ADIFF, ANEU, APTT, PRO #### [address] [address] Electrolyte Balance 12.0 mEq/L Normal 4.0-15.0 [facility] ([place]) Comment on above: Performed By: #### C BC, ADIFF, ANEU, APTT, PRO #### [place] [id number] Albumin Level 2.7 G/dL Low 3.2-4.8 [facility] ([place]) Comment on above: Performed By: #### C BC, ADIFF, ANEU, APTT, PRO #### [place] [address] Albumin/Globulin [Mass ratio] 1.0 {ratio} Normal 0.9-1.6 [facility] ([place]) Comment on above: Performed By: #### C BC, ADIFF, ANEU, APTT, PRO #### [address] [address] ALP [Catalytic activity/Vol] 63 U/L Normal 38-126 [facility] ([place]) Comment on above: Performed By: #### C BC, ADIFF, ANEU, APTT, PRO #### [address] [address] ALT [Catalytic activity/Vol] 16 U/L Normal 10-49 [facility] ([place]) Comment on above: Performed By: #### C BC, ADIFF, ANEU, APTT, PRO #### [address] [address] AST [Catalytic activity/Vol] 25 U/L Normal 8-34 [facility] ([place]) Comment on above: Performed By: #### C BC, ADIFF, ANEU, APTT, PRO #### [address] [address] Bili Total 0.5 mg/dL Normal 0.2-1.2 [facility] ([place]) Comment on above: Result Comment: Use of this assay is not recommended for patients undergoing treatment with eltrombopag due to the potential for falsely elevated results. Performed By: #### C BC, ADIFF, ANEU, APTT, PRO #### [address] [address] BUN/Creatinine Ratio 16.5 ratio Normal 10.0-22.0 [facility] ([place]) Comment on above: Performed By: #### C BC, ADIFF, ANEU, APTT, PRO #### [address] [address] Chloride [Moles/Vol] 111 mmol/L High 98-110 [facility] ([place]) Comment on above: Performed By: #### C BC, ADIFF, ANEU, APTT, PRO #### [address] [address] Creatinine [Mass/Vol] 1.15 mg/dL Normal 0.50-1.20 [facility] ([place]) Comment on above: Performed By: #### C BC, ADIFF, ANEU, APTT, PRO #### [address] [address] Globulin 2.7 G/dL Normal 1.5-3.8 [facility] ([place]) Comment on above: Performed By: #### C BC, ADIFF, ANEU, APTT, PRO #### [address] [address] Glucose [Mass/Vol] 143 mg/dL High 82-115 [facility] ([place]) Comment on above: Performed By: #### C BC, ADIFF, ANEU, APTT, PRO #### [address] [address] Potassium [Moles/Vol] 4.8 mmol/L Normal 3.5-5.0 [facility] ([place]) Comment on above: Performed By: #### C BC, ADIFF, ANEU, APTT, PRO #### [address] [address] Sodium [Moles/Vol] 139 mmol/L Normal 136-145 [facility] ([place]) Comment on above: Performed By: #### C BC, ADIFF, ANEU, APTT, PRO #### [place] [address] Total Protein 5.4 G/dL Low 6.0-8.5 [facility] ([place]) Comment on above: Result Comment: No te - New Reference Range in effect 19 Performed By: #### C BC, ADIFF, ANEU, APTT, PRO #### [place] [address] Urea nitrogen [Mass/Vol] 19.0 mg/dL Normal 8.0-22.0 [facility] ([place]) Comment on above: Performed By: #### C BC, ADIFF, ANEU, APTT, PRO #### [place] [id number] LACon 03-23-2020 Lactic Acid Lvl 1.6 mmol/L Normal 0.2-2.0 [facility] ([place]) Comment on above: Performed By: #### C BC, ADIFF, ANEU, APTT, PRO #### [place] [address] Lactic Acid Lvl 3.1 mmol/L High 0.2-2.0 [facility] ([place]) Comment on above: Order Comment: Order ed secondary to Lactic Acid result greater than or equal to 2.0 Performed By: #### C BC, ADIFF, ANEU, APTT, PRO #### [place] [id number] Lactic Acid Lvl 3.3 mmol/L High 0.2-2.0 [facility] ([place]) Comment on above: Performed By: #### C BC, ADIFF, ANEU, APTT, PRO #### [place] [id number] MGon 03-23-2020 Magnesium [Mass/Vol] 2.6 mg/dL High 1.6-2.4 [facility] ([place]) Comment on above: Performed By: #### C BC, ADIFF, ANEU, APTT, PRO #### [facility] [address] [place] [id number] Magnesium [Mass/Vol] 1.3 mg/dL Low 1.6-2.4 [facility] ([place]) Comment on above: Performed By: #### C BC, ADIFF, ANEU, APTT, PRO #### [facility] [address] [place] [id number] PROon 03-23-2020 INR Coag (PPP) [Relative time] 1.0 {INR} Normal [facility] ([place]) Comment on above: Result Comment: [employer] (CHEST, 1992, 102:312S-25S) recommended therapeutic range for oral anticoagulant therapy is: LOW RISK: Prophylaxis of venous thrombosis INR: 2.0-3.0 Treatment of pulmonary embolism 2.0-3.0 Prevention of systemic embolism 2.0-3.0 HIGH RISK: Mechanical prosthetic valves 2.5-3.5 Performed By: #### C BC, ADIFF, ANEU, APTT, PRO #### [address] [address] PT Coag (PPP) [Time] 11.5 s Normal 9.0-14.6 [facility] ([place]) Comment on above: Result Comment: Effe ctive 11/17/07, Protime results may be affected by some antibiotics (i.e. Ciprofloxacin, Azithromycin, Bactrim) which may potentiate the action of oral anticoagulants, with further increases in Protime/INR. Performed By: #### C BC, ADIFF, ANEU, APTT, PRO #### [address] [address] RBC (Product)on 03-23-2020 RBC Product Ready RBC Ready for Pickup Normal [facility] ([place]) Comment on above: Performed By: #### C BC, ADIFF, ANEU, APTT, PRO #### [facility] [address] [place] [address] XR CHEST 1 VIEWon 03-23-2020 XR CHEST 1 VIEW ORIGINAL XR CHEST 1 VIEW CLINICAL STATEMENT: Central line insertion COMPARISON: Chest radiograph 03/22/2020 FINDINGS: RIGHT internal jugular central catheter tip projects at the level of the mid SVC. Cardiomediastinal contour is normal. No focal pulmonary consolidation, vascular congestion, pneumothorax or pleural effusion. IMPRESSION: RIGHT internal jugular central catheter tip projects at the level of the mid SVC. No pneumothorax. I have personally reviewed the images of this examination and agree with the resident's findings and interpretation. Interpreted By: Abilio Zuñiga MD Preliminary Report By: Dane El MD Electronically Signed By: Abilio Zuñiga MD Dictated Date: 03/22/2020 11:30:54 PM Prelim Date: 03/22/2020 11:31:50 PM Sign Date: 03/23/2020 12:07:15 AM Ordering Provider:Purvi Bravo [facility] ([place]) .Auto Diffon 03-22-2020 Basophil, Absolute 0.10 10 3/mcL Normal 0.00-0.27 [facility] ([place]) Comment on above: Performed By: #### C BC, ADIFF, ANEU, APTT, PRO #### [address] [address] Basophils/100 WBC (Bld) 1.0 % Normal 0.0-2.5 [facility] ([place]) Comment on above: Performed By: #### C BC, ADIFF, ANEU, APTT, PRO #### [address] [address] Eosinophil, Absolute 0.10 10 3/mcL Normal 0.00-0.65 [facility] ([place]) Comment on above: Performed By: #### C BC, ADIFF, ANEU, APTT, PRO #### [address] [address] Eosinophils/100 WBC (Bld) 1.0 % Normal 0.0-6.0 [facility] ([place]) Comment on above: Performed By: #### C BC, ADIFF, ANEU, APTT, PRO #### [address] [address] Lymphocyte, Absolute 1.70 10 3/mcL Normal 0.90-4.32 [facility] ([place]) Comment on above: Performed By: #### C BC, ADIFF, ANEU, APTT, PRO #### [address] [address] Lymphocytes/100 WBC (Bld) 29.3 % Normal 20.0-40.0 [facility] ([place]) Comment on above: Performed By: #### C BC, ADIFF, ANEU, APTT, PRO #### [address] [address] Monocyte, Absolute 0.50 10 3/mcL Normal 0.09-1.40 [facility] ([place]) Comment on above: Performed By: #### C BC, ADIFF, ANEU, APTT, PRO #### [address] [address] Monocytes/100 WBC (Bld) 9.2 % Normal 2.0-13.0 [facility] ([place]) Comment on above: Performed By: #### C BC, ADIFF, ANEU, APTT, PRO #### [address] [address] Neutrophils/100 WBC (Bld) 59.5 % Normal 50.0-75.0 [facility] ([place]) Comment on above: Performed By: #### C BC, ADIFF, ANEU, APTT, PRO #### [address] [address] Basophil, Absolute 0.10 10 3/mcL Normal 0.00-0.27 [facility] ([place]) Comment on above: Performed By: #### C BC, ADIFF, ANEU, BMP, GFR #### [address] [address] Basophils/100 WBC (Bld) 1.1 % Normal 0.0-2.5 [facility] ([place]) Comment on above: Performed By: #### C BC, ADIFF, ANEU, BMP, GFR #### [address] [address] Eosinophil, Absolute 0.10 10 3/mcL Normal 0.00-0.65 [facility] ([place]) Comment on above: Performed By: #### C BC, ADIFF, ANEU, BMP, GFR #### [address] [address] Eosinophils/100 WBC (Bld) 1.1 % Normal 0.0-6.0 [facility] ([place]) Comment on above: Performed By: #### C BC, ADIFF, ANEU, BMP, GFR #### [address] [address] Lymphocyte, Absolute 1.50 10 3/mcL Normal 0.90-4.32 [facility] ([place]) Comment on above: Performed By: #### C BC, ADIFF, ANEU, BMP, GFR #### [address] [address] Lymphocytes/100 WBC (Bld) 30.2 % Normal 20.0-40.0 [facility] ([place]) Comment on above: Performed By: #### C BC, ADIFF, ANEU, BMP, GFR #### [address] [address] Monocyte, Absolute 0.50 10 3/mcL Normal 0.09-1.40 [facility] ([place]) Comment on above: Performed By: #### C BC, ADIFF, ANEU, BMP, GFR #### [address] [address] Monocytes/100 WBC (Bld) 10.8 % Normal 2.0-13.0 [facility] ([place]) Comment on above: Performed By: #### C BC, ADIFF, ANEU, BMP, GFR #### [address] [address] Neutrophils/100 WBC (Bld) 56.8 % Normal 50.0-75.0 [facility] ([place]) Comment on above: Performed By: #### C BC, ADIFF, ANEU, BMP, GFR #### [address] [address] .GFRon 03-22-2020 GFR Non- 50 ml/min/1.73sqm Normal [facility] ([place]) Comment on above: Result Comment: GFR Population mean for , Non- Americans Ages 20-29 = 116 mL/min/1.73 sq.m. Ages 30-39 = 107 mL/min/1.73 sq.m. Ages 40-49 = 99 mL/min/1.73 sq.m. Ages 50-59 = 93 mL/min/1.73 sq.m. Ages 60-69 = 85 mL/min/1.73 sq.m. Ages 70+ = 75 mL/min/1.73 sq.m. Chronic Kidney Disease: Less than 60 mL/min/1.73 square meters End Stage Renal Disease: Less than 15 mL/min/1.73 square meters Performed By: #### C BC, ADIFF, ANEU, APTT, PRO #### [address] [address] GFR >60 Normal [facility] ([place]) Comment on above: Result Comment: GFR Population mean for , Non- Americans Ages 20-29 = 116 mL/min/1.73 sq.m. Ages 30-39 = 107 mL/min/1.73 sq.m. Ages 40-49 = 99 mL/min/1.73 sq.m. Ages 50-59 = 93 mL/min/1.73 sq.m. Ages 60-69 = 85 mL/min/1.73 sq.m. Ages 70+ = 75 mL/min/1.73 sq.m. Chronic Kidney Disease: Less than 60 mL/min/1.73 square meters End Stage Renal Disease: Less than 15 mL/min/1.73 square meters Performed By: #### C BC, ADIFF, ANEU, APTT, PRO #### [address] [address] .NEUABSon 03-22-2020 Neutrophil, Absolute 3.40 10 3/mcL Normal 2.25-8.10 [facility] ([place]) Comment on above: Performed By: #### C BC, ADIFF, ANEU, APTT, PRO #### [address] [address] Neutrophil, Absolute 2.80 10 3/mcL Normal 2.25-8.10 [facility] ([place]) Comment on above: Performed By: #### C BC, ADIFF, ANEU, BMP, GFR #### [place] [id number] APTTon 03-22-2020 aPTT Coag (Bld) [Time] 129.6 s Critically abnormal 25.0-35.0 [facility] ([place]) Comment on above: Result Comment: For Heparin anticoagulation therapy, the recommended therapeutic range is: 54-77 seconds (APTT Correlation with Anti-Xa therapeutic range of 0.3-0.7 units/ml). PLEASE REFERENCE THE PHARMACY PROTOCOL FOR DOSING. Performed By: #### C BC, ADIFF, ANEU, APTT, PRO #### [place] [id number] Heparin dose (APTT) Heparin IV Normal [facility] ([place]) Comment on above: Performed By: #### C BC, ADIFF, ANEU, APTT, PRO #### [place] [address] aPTT Coag (Bld) [Time] 125.1 s Critically abnormal 25.0-35.0 [facility] ([place]) Comment on above: Result Comment: For Heparin anticoagulation therapy, the recommended therapeutic range is: 54-77 seconds (APTT Correlation with Anti-Xa therapeutic range of 0.3-0.7 units/ml). PLEASE REFERENCE THE PHARMACY PROTOCOL FOR DOSING. Performed By: #### A PTT #### [place] [address] Heparin dose (APTT) Heparin IV Normal [facility] ([place]) Comment on above: Performed By: #### A PTT #### [place] [id number] BMPon 03-22-2020 BUN/Creatinine Ratio 16.2 ratio Normal 10.0-22.0 [facility] ([place]) Comment on above: Performed By: #### C BC, ADIFF, ANEU, BMP, GFR #### [place] [id number] Calcium [Mass/Vol] 8.7 mg/dL Normal 8.4-10.1 [facility] ([place]) Comment on above: Result Comment: No te - New Reference Range in effect 19 Performed By: #### C BC, ADIFF, ANEU, BMP, GFR #### [address] [address] Chloride [Moles/Vol] 104 mmol/L Normal 98-110 [facility] ([place]) Comment on above: Performed By: #### C BC, ADIFF, ANEU, BMP, GFR #### [address] [address] CO2 [Moles/Vol] 33 mmol/L High 22-32 [facility] ([place]) Comment on above: Performed By: #### C BC, ADIFF, ANEU, BMP, GFR #### [address] [address] Creatinine [Mass/Vol] 1.05 mg/dL Normal 0.50-1.20 [facility] ([place]) Comment on above: Performed By: #### C BC, ADIFF, ANEU, BMP, GFR #### [address] [address] Electrolyte Balance 2.0 mEq/L Low 4.0-15.0 [facility] ([place]) Comment on above: Performed By: #### C BC, ADIFF, ANEU, BMP, GFR #### [address] [address] Glucose [Mass/Vol] 87 mg/dL Normal 82-115 [facility] ([place]) Comment on above: Performed By: #### C BC, ADIFF, ANEU, BMP, GFR #### [address] [address] Potassium [Moles/Vol] 4.2 mmol/L Normal 3.5-5.0 [facility] ([place]) Comment on above: Performed By: #### C BC, ADIFF, ANEU, BMP, GFR #### [address] [address] Sodium [Moles/Vol] 139 mmol/L Normal 136-145 [facility] ([place]) Comment on above: Performed By: #### C BC, ADIFF, ANEU, BMP, GFR #### [address] [address] Urea nitrogen [Mass/Vol] 17.0 mg/dL Normal 8.0-22.0 [facility] ([place]) Comment on above: Performed By: #### C BC, ADIFF, ANEU, BMP, GFR #### [address] [address] CBCon 03-22-2020 Erythrocyte distribution width (RBC) [Ratio] 14.4 % Normal 11.5-15.5 [facility] ([place]) Comment on above: Performed By: #### C BC, ADIFF, ANEU, APTT, PRO #### [place] [address] Hematocrit (Bld) [Volume fraction] 28.4 % Low 34.0-46.0 [facility] ([place]) Comment on above: Performed By: #### C BC, ADIFF, ANEU, APTT, PRO #### [place] [id number] Hgb 9.6 G/dL Low 12.0-16.0 [facility] ([place]) Comment on above: Performed By: #### C BC, ADIFF, ANEU, APTT, PRO #### [address] [address] MCH (RBC) [Entitic mass] 33.1 pg High 27.0-33.0 [facility] ([place]) Comment on above: Performed By: #### C BC, ADIFF, ANEU, APTT, PRO #### [place] [id number] MCHC 33.8 G/dL Normal 32.0-36.0 [facility] ([place]) Comment on above: Performed By: #### C BC, ADIFF, ANEU, APTT, PRO #### [address] [address] MCV (RBC) [Entitic vol] 97.9 fL Normal 80.0-99.0 [facility] ([place]) Comment on above: Performed By: #### C BC, ADIFF, ANEU, APTT, PRO #### [place] [id number] Platelet 234 10 3/mcL Normal 150-450 [facility] ([place]) Comment on above: Performed By: #### C BC, ADIFF, ANEU, APTT, PRO #### [place] [address] Platelet mean volume (Bld) [Entitic vol] 7.1 fL Normal 6.6-10.5 [facility] ([place]) Comment on above: Performed By: #### C BC, ADIFF, ANEU, APTT, PRO #### [place] [address] RBC 2.90 10 6/mcL Low 4.10-5.30 [facility] ([place]) Comment on above: Performed By: #### C BC, ADIFF, ANEU, APTT, PRO #### [place] [address] WBC 5.70 10 3/mcL Normal 4.50-10.80 [facility] ([place]) Comment on above: Performed By: #### C BC, ADIFF, ANEU, APTT, PRO #### [place] [address] Erythrocyte distribution width (RBC) [Ratio] 14.5 % Normal 11.5-15.5 [facility] ([place]) Comment on above: Performed By: #### C BC, ADIFF, ANEU, BMP, GFR #### [place] [address] Hematocrit (Bld) [Volume fraction] 32.4 % Low 34.0-46.0 [facility] ([place]) Comment on above: Performed By: #### C BC, ADIFF, ANEU, BMP, GFR #### [place] [address] Hgb 10.9 G/dL Low 12.0-16.0 [facility] ([place]) Comment on above: Performed By: #### C BC, ADIFF, ANEU, BMP, GFR #### [place] [address] MCH (RBC) [Entitic mass] 33.0 pg Normal 27.0-33.0 [facility] ([place]) Comment on above: Performed By: #### C BC, ADIFF, ANEU, BMP, GFR #### [place] [address] MCHC 33.8 G/dL Normal 32.0-36.0 [facility] ([place]) Comment on above: Performed By: #### C BC, ADIFF, ANEU, BMP, GFR #### [place] [address] MCV (RBC) [Entitic vol] 97.6 fL Normal 80.0-99.0 [facility] ([place]) Comment on above: Performed By: #### C BC, ADIFF, ANEU, BMP, GFR #### [place] [address] Platelet 228 10 3/mcL Normal 150-450 [facility] ([place]) Comment on above: Performed By: #### C BC, ADIFF, ANEU, BMP, GFR #### [place] [address] Platelet mean volume (Bld) [Entitic vol] 7.4 fL Normal 6.6-10.5 [facility] ([place]) Comment on above: Performed By: #### C BC, ADIFF, ANEU, BMP, GFR #### [place] [address] RBC 3.32 10 6/mcL Low 4.10-5.30 [facility] ([place]) Comment on above: Performed By: #### C BC, ADIFF, ANEU, BMP, GFR #### [place] [address] WBC 4.90 10 3/mcL Normal 4.50-10.80 [facility] ([place]) Comment on above: Performed By: #### C BC, ADIFF, ANEU, BMP, GFR #### [place] [address] CT ABDOMEN/PELVIS W/O CONTRA Leticia 03-22-2020 CT ABDOMEN/PELVIS W/O CONTRAST ORIGINAL CT ABDOMEN/PELVIS W/O CONTRAST CLINICAL STATEMENT: anemia post cath r/o retroperitoneal hematoma. RIGHT femoral access COMPARISON: None TECHNIQUE: Axial images were obtained from the lung bases through the pubic symphysis. Coronal and sagittal reformatted images were generated from the axial dataset. This exam was performed according to our departmental dose optimization program, and includes the following measures where applicable: automated exposure control, adjustment of the mAs and/or kVp according to patient size and/or exam, and an iterative reconstruction algorithm. FINDINGS: Liver, pancreas and adrenal glands are normal. Small amount of perihepatic fluid. Few punctate calcifications in the spleen are noted. Gallbladder is absent. Mild symmetric bilateral renal atrophy. There is a simple RIGHT renal cyst. Subcentimeter LEFT renal hypodensity is most likely benign. Ruth catheter is present within a collapsed bladder. Uterus is within normal limits. No adnexal mass. Small hiatal hernia. There is mild ventral bowel wall thickening extending from the hepatic flexure colon to the distal sigmoid colon. Nonobstructive bowel pattern. Trace amount of fluid within the pelvis. No free air. Normal caliber aorta with moderate to severe mural calcification. There is large layering hyperdense material (11.4 x 7.7 cm) within the anterior abdomen, within the space of Retzius extending along the posterior margin of the rectus abdominis musculature. There is extension of this collection towards the RIGHT, where it approximates the RIGHT common femoral/superficial femoral artery by a few millimeters. Minimal subsegmental dependent atelectasis in the lung bases. Heart is normal in size. Small amount of pericardial fluid is within physiologic limits. No acute osseous abnormality. Bilateral femoral prostheses are noted. Mild anterior wedging deformity of T12, likely chronic. Minimal grade 1 anterolisthesis of L4 on L5 without are as defects. IMPRESSION: Large layering hematoma within the space of Retzius, with small collection extending towards the RIGHT common/superficial femoral artery and approximating by a few millimeters. No significant retroperitoneal blood products. Mild bowel wall thickening of the transverse and descending colon. Possibly on the basis of underdistention however, mild infectious/inflammato ry colitis is also considered. I have personally reviewed the images of this examination and agree with the resident's findings and interpretation. Interpreted By: Abilio Zuñiga MD Preliminary Report By: Dane El MD Electronically Signed By: Abilio Zuñiga MD Dictated Date: 03/22/2020 8:20:25 PM Prelim Date: 03/22/2020 8:30:07 PM Sign Date: 03/22/2020 8:38:00 PM Ordering Provider:Purvi Bravo [facility] ([place]) HH 03-22-2020 Hematocrit (Bld) [Volume fraction] 27.5 % Low 34.0-46.0 [facility] ([place]) Comment on above: Performed By: #### C BC, ADIFF, ANEU, APTT, PRO #### [address] [address] Hgb 9.1 G/dL Low 12.0-16.0 [facility] ([place]) Comment on above: Performed By: #### C BC, ADIFF, ANEU, APTT, PRO #### [place] [address] Hematocrit (Bld) [Volume fraction] 28.2 % Low 34.0-46.0 [facility] ([place]) Comment on above: Performed By: #### C BC, ADIFF, ANEU, APTT, PRO #### [place] [address] Hgb 9.2 G/dL Low 12.0-16.0 [facility] ([place]) Comment on above: Performed By: #### C BC, ADIFF, ANEU, APTT, PRO #### [address] [address] LIPIDon 03-22-2020 Cholesterol [Mass/Vol] 130 mg/dL Normal 50-199 [facility] ([place]) Comment on above: Result Comment: Chol esterol Reference Interval: Less than 200 Desirable 200-239 Borderline high risk 240 and above High risk Performed By: #### C BC, ADIFF, ANEU, APTT, PRO #### [address] [address] Cholesterol in HDL [Mass/Vol] 58 mg/dL Normal 40-59 [facility] ([place]) Comment on above: Performed By: #### C BC, ADIFF, ANEU, APTT, PRO #### [address] [address] Cholesterol in LDL [Mass/Vol] 61 mg/dL Normal 0-129 [facility] ([place]) Comment on above: Performed By: #### C BC, ADIFF, ANEU, APTT, PRO #### [place] [address] Triglyceride [Mass/Vol] 55 mg/dL Normal 3-149 [facility] ([place]) Comment on above: Performed By: #### C BC, ADIFF, ANEU, APTT, PRO #### [place] [address] MABOon 03-22-2020 ABO/Rh Interp Positive Invalid Interpretation Code [facility] ([place]) Comment on above: Performed By: #### C BC, ADIFF, ANEU, APTT, PRO #### [place] [address] MABSon 03-22-2020 Antibody Screen Manual Negative Normal [facility] ([place]) Comment on above: Performed By: #### C BC, ADIFF, ANEU, APTT, PRO #### [place] [id number] RBC (Product)on 03-22-2020 RBC Product Ready RBC Ready for Pickup Normal [facility] ([place]) Comment on above: Performed By: #### C BC, ADIFF, ANEU, APTT, PRO #### [place] [id number] UAon 03-22-2020 Color (U) Yellow Normal [facility] ([place]) Comment on above: Performed By: #### C BC, ADIFF, ANEU, APTT, PRO #### [place] [address] Glucose (U) [Mass/Vol] Negative Normal Negative [facility] ([place]) Comment on above: Performed By: #### C BC, ADIFF, ANEU, APTT, PRO #### [place] [id number] Ketones Ql (U) Negative Normal Neg-Trace On license of [facility] ([place]) Comment on above: Performed By: #### C BC, ADIFF, ANEU, APTT, PRO #### [place] [address] UA Appear Clear Normal Clear [facility] ([place]) Comment on above: Performed By: #### C BC, ADIFF, ANEU, APTT, PRO #### [address] [address] UA Blood Negative Normal Neg-Trace [facility] ([place]) Comment on above: Performed By: #### C BC, ADIFF, ANEU, APTT, PRO #### [address] [address] UA Leuk Est Small Abnormal Negative [facility] ([place]) Comment on above: Performed By: #### C BC, ADIFF, ANEU, APTT, PRO #### [address] [address] UA Nitrite Negative Normal Negative [facility] ([place]) Comment on above: Performed By: #### C BC, ADIFF, ANEU, APTT, PRO #### [address] [address] UA pH 7.0 Normal 5.0 - 8.0 [facility] ([place]) Comment on above: Performed By: #### C BC, ADIFF, ANEU, APTT, PRO #### [address] [address] UA Protein Negative Normal Negative [facility] ([place]) Comment on above: Performed By: #### C BC, ADIFF, ANEU, APTT, PRO #### [address] [address] UA Spec Grav >=1.030 Abnormal 1.006-1.029 [facility] ([place]) Comment on above: Performed By: #### C BC, ADIFF, ANEU, APTT, PRO #### [address] [address] UA Specimen Type Catheter Normal [facility] ([place]) Comment on above: Performed By: #### C BC, ADIFF, ANEU, APTT, PRO #### [address] [address] UA Urobilinogen 0.2 E.U./dL Normal 0.2-1.0 [facility] ([place]) Comment on above: Performed By: #### C BC, ADIFF, ANEU, APTT, PRO #### [facility] [address] [place] [address] Urobilinogen (U) [Mass/Vol] Negative Normal Neg-Trace [facility] ([place]) Comment on above: Performed By: #### C BC, ADIFF, ANEU, APTT, PRO #### [address] [address] UAMICon 03-22-2020 UA Bacteria Trace Abnormal Negative [facility] ([place]) Comment on above: Performed By: #### C BC, ADIFF, ANEU, APTT, PRO #### [address] [address] UA RBC Negative Normal 0-2 [facility] ([place]) Comment on above: Performed By: #### C BC, ADIFF, ANEU, APTT, PRO #### [address] [address] UA Squam Epithelial 3-5 Normal 0-20 [facility] ([place]) Comment on above: Performed By: #### C BC, ADIFF, ANEU, APTT, PRO #### [address] [address] UA WBC 10-20 Abnormal 0-5 [facility] ([place]) Comment on above: Performed By: #### C BC, ADIFF, ANEU, APTT, PRO #### [address] [address] XR CHEST 1 VIEWon 03-22-2020 XR CHEST 1 VIEW ORIGINAL XR CHEST 1 VIEW CLINICAL STATEMENT: chest pain COMPARISON: 05/21/2006 FINDINGS: The heart is borderline in size and there is atherosclerosis. Prominent costochondral calcification seen. There is no pulmonary consolidation. No pneumothorax or pleural effusion. No aggressive osseous lesions. There is a skinfold artifact obscuring the lateral RIGHT lung base. No aggressive osseous lesions seen. Degenerative changes seen in the shoulders. IMPRESSION: No focal consolidation Interpreted By: Adair Fields MD Preliminary Report By: Adair Fields MD Electronically Signed By: Adair Fields MD Dictated Date: 03/22/2020 9:13:30 AM Prelim Date: 03/22/2020 9:13:30 AM Sign Date: 03/22/2020 9:14:46 AM Ordering Provider:Lincoln Bravo [facility] ([place]) .Auto Diffon 03-21-2020 Basophil, Absolute 0.00 10 3/mcL Normal 0.00-0.27 [facility] ([place]) Comment on above: Performed By: #### C BC, ADIFF, ANEU, APTT, PRO #### [address] [address] Basophils/100 WBC (Bld) 0.8 % Normal 0.0-2.5 [facility] ([place]) Comment on above: Performed By: #### C BC, ADIFF, ANEU, APTT, PRO #### [address] [address] Eosinophil, Absolute 0.10 10 3/mcL Normal 0.00-0.65 [facility] ([place]) Comment on above: Performed By: #### C BC, ADIFF, ANEU, APTT, PRO #### [address] [address] Eosinophils/100 WBC (Bld) 0.9 % Normal 0.0-6.0 [facility] ([place]) Comment on above: Performed By: #### C BC, ADIFF, ANEU, APTT, PRO #### [address] [address] Lymphocyte, Absolute 1.70 10 3/mcL Normal 0.90-4.32 [facility] ([place]) Comment on above: Performed By: #### C BC, ADIFF, ANEU, APTT, PRO #### [address] [address] Lymphocytes/100 WBC (Bld) 28.4 % Normal 20.0-40.0 [facility] ([place]) Comment on above: Performed By: #### C BC, ADIFF, ANEU, APTT, PRO #### [address] [address] Monocyte, Absolute 0.90 10 3/mcL Normal 0.09-1.40 [facility] ([place]) Comment on above: Performed By: #### C BC, ADIFF, ANEU, APTT, PRO #### [address] [address] Monocytes/100 WBC (Bld) 14.3 % High 2.0-13.0 [facility] ([place]) Comment on above: Performed By: #### C BC, ADIFF, ANEU, APTT, PRO #### [address] [address] Neutrophils/100 WBC (Bld) 55.6 % Normal 50.0-75.0 [facility] ([place]) Comment on above: Performed By: #### C BC, ADIFF, ANEU, APTT, PRO #### [address] [address] .NEUABSon 03-21-2020 Neutrophil, Absolute 3.30 10 3/mcL Normal 2.25-8.10 [facility] ([place]) Comment on above: Performed By: #### C BC, ADIFF, ANEU, APTT, PRO #### [place] [id number] APTTon 03-21-2020 aPTT Coag (Bld) [Time] 28.4 s Normal 25.0-35.0 [facility] ([place]) Comment on above: Result Comment: For Heparin anticoagulation therapy, the recommended therapeutic range is: 54-77 seconds (APTT Correlation with Anti-Xa therapeutic range of 0.3-0.7 units/ml). PLEASE REFERENCE THE PHARMACY PROTOCOL FOR DOSING. Performed By: #### C BC, ADIFF, ANEU, APTT, PRO #### [place] [address] Heparin dose (APTT) None Normal [facility] ([place]) Comment on above: Performed By: #### C BC, ADIFF, ANEU, APTT, PRO #### [place] [id number] CBCon 03-21-2020 Erythrocyte distribution width (RBC) [Ratio] 14.6 % Normal 11.5-15.5 [facility] ([place]) Comment on above: Performed By: #### C BC, ADIFF, ANEU, APTT, PRO #### [place] [address] Hematocrit (Bld) [Volume fraction] 35.0 % Normal 34.0-46.0 [facility] ([place]) Comment on above: Performed By: #### C BC, ADIFF, ANEU, APTT, PRO #### [place] [address] Hgb 11.4 G/dL Low 12.0-16.0 [facility] ([place]) Comment on above: Performed By: #### C BC, ADIFF, ANEU, APTT, PRO #### [place] [address] MCH (RBC) [Entitic mass] 32.0 pg Normal 27.0-33.0 [facility] ([place]) Comment on above: Performed By: #### C BC, ADIFF, ANEU, APTT, PRO #### [place] [address] MCHC 32.6 G/dL Normal 32.0-36.0 [facility] ([place]) Comment on above: Performed By: #### C BC, ADIFF, ANEU, APTT, PRO #### [place] [address] MCV (RBC) [Entitic vol] 98.4 fL Normal 80.0-99.0 [facility] ([place]) Comment on above: Performed By: #### C BC, ADIFF, ANEU, APTT, PRO #### [place] [address] Platelet 253 10 3/mcL Normal 150-450 [facility] ([place]) Comment on above: Performed By: #### C BC, ADIFF, ANEU, APTT, PRO #### [place] [address] Platelet mean volume (Bld) [Entitic vol] 7.4 fL Normal 6.6-10.5 [facility] ([place]) Comment on above: Performed By: #### C BC, ADIFF, ANEU, APTT, PRO #### [place] [address] RBC 3.56 10 6/mcL Low 4.10-5.30 [facility] ([place]) Comment on above: Performed By: #### C BC, ADIFF, ANEU, APTT, PRO #### [facility] [address] [place] [id number] WBC 6.00 10 3/mcL Normal 4.50-10.80 [facility] ([place]) Comment on above: Performed By: #### C BC, ADIFF, ANEU, APTT, PRO #### [address] [address] PROon 03-21-2020 INR Coag (PPP) [Relative time] 1.0 {INR} Normal [facility] ([place]) Comment on above: Result Comment: The [employer] (CHEST, 1992, 102:312S-25S) recommended therapeutic range for oral anticoagulant therapy is: LOW RISK: Prophylaxis of venous thrombosis INR: 2.0-3.0 Treatment of pulmonary embolism 2.0-3.0 Prevention of systemic embolism 2.0-3.0 HIGH RISK: Mechanical prosthetic valves 2.5-3.5 Performed By: #### C BC, ADIFF, ANEU, APTT, PRO #### [facility] [address] [place] [id number] PT Coag (PPP) [Time] 11.7 s Normal 9.0-14.6 [facility] ([place]) Comment on above: Result Comment: Effe ctive 11/17/07, Protime results may be affected by some antibiotics (i.e. Ciprofloxacin, Azithromycin, Bactrim) which may potentiate the action of oral anticoagulants, with further increases in Protime/INR. Performed By: #### C BC, ADIFF, ANEU, APTT, PRO #### [facility] [address] [place] [id number] Encounters Encounter Date Encounter Type Care Provider Facility Start: 02-04-2025 End: 02-04-2025 ambulatory [facility] Start: 12-16-2024 End: 12-16-2024 ambulatory [facility] Start: 12-14-2024 End: 12-14-2024 [facility] Start: 09-13-2024 End: 09-13-2024 ambulatory [facility] Start: 07-22-2024 End: 07-22-[address] Judy Erwin MD Work Phone: [facility] Work Phone: Start: 07-22-2024 End: 07-22-[address] Judy rEwin MD -Laboratory, [facility] Start: 07-22-2024 End: 07-22-2024 ambulatory Judyisrael Erwin Facility:[facility] Start: 05-20-2024 End: 05-20-2024 ambulatory TAWANNA DAVEYCKARY [facility] Start: 05-05-2024 End: 05-06-2024 ambulatory VERONA RIP Mario [facility] Start: 04-30-2024 End: 04-30-2024 [facility] Start: 03-24-2024 End: 03-24-2024 ambulatory JUDY RIP Martin [facility] Start: 02-13-2024 End: 02-13-2024 ambulatory JUDY RIP Mario [facility] Start: 02-12-2024 End: 02-13-2024 ambulatory Alexa Sky Facility:[facility] Payers Date Payer Category Payer Self-pay 2024 Medicaid [id number] 2024 Unknown [id number] 1992 Medicare MEDICARE PART A B [id number] 1940 Unknown [id number] 2.16.8 [id number] 1940 Unknown [id number] 2.16.8 [id number] 1940 Unknown [id number] 2.16.8 [id number] 1939 Unknown [id number] 2.16.8 [id number] 1940 Unknown [id number] 2.16.8 [id number] 1939 Unknown [id number] 2.16.8 [id number] 1940 Unknown [id number] 2.16.8 [id number] 1940 Unknown [id number] 2.16.8 [id number] 1940 Unknown [id number] 2.16.8 [id number] Unknown [id number] 2.16.8 [id number] Unknown [id number] 2.16.8 [id number] Unknown [id number] 2.16.8 [id number] Social History Date Type Detail Facility Start: 02-12-2024 Tobacco smoking stat [facility] Ex-smoker (finding) [facility] Start: 07-29-2024 Sex Female (finding) [facility] Start: 1940 Sex Assigned At Female [facility] Clinical Note 05-06-2024 Note Date & Type Note Facility 05-06-2024 Note Discharge Instructio ns Discharge Summary [place] [address] [place] [address] [phone] 05/05/2024 Patient: VICKIE BLUE Sex: Female : 1940 Age: 83y Thank you for visiting [facility]. You have been evaluated today by Chantale Hernández D.O. for the following condition(s): Principal Diagnosis Precordial chest pain. INSTRUCTIONS Understanding of the discharge instructions verbalized by patient and family. Patient Signature Facility Patch Sander Date/Time General Instructions with ExitWriter [facility] [address] [place] [address] [id number] 05/05/2024 Patient: VICKIE BLUE 1 of 2 Discharge Instructions Sex: Female : 1940 Age: 83y Thank you for visiting [facility]. You have been evaluated today by Chantale Hernández D.O. for the following condition(s): Principal Diagnosis Precordial chest pain. INSTRUCTIONS Understanding of the discharge instructions verbalized by patient and family. 2 of 2 [facility] Evaluation note Note Date & Type Note Facility Evaluation note No assessment information availa ble [facility] Work Phone: Reason for referral (narrative) Note Date & Type Note Facility Reason for referral (narrative) No reason for referral information available [facility] Work Phone: Summary Purpose Family History No Family History Records Found Relationship Condition Age at Onset Recorded Date/T ky Unknown Family History?No pe rtinent history Unknown June 08, 2015 7:03am Advance Directives No Advanced Directives Records Found Advance Directive Response Recorded Date/ Time Advance Directives Yes June 06, 2015 12:54pm Additional Source Comments INFORMATION SOURCE (unrecogn ized section and content) DATE CREATED AUTHOR 10/03/2020 [facility] ([place]) DATE CREATED AUTHOR AUTHOR'S ORGANIZ ATION 04/07/2021 [facility] DATE CREATED AUTHOR AUTHOR'S ORGANIZ ATION 07/30/2024 [facility] DATE CREATED AUTHOR AUTHOR'S ORGANIZ ATION 02/08/2025 [facility] Care Teams (unrecognized sec tion and content) Team Status: Active Member Role Status Dates Dr. Avelino Szymanski MD Family Provider Active Dr. Judy Erwin MD Primary Care Provider Active Team Status: Inactive Member Role Status Dates Dr. Judy Erwin MD Primary Care Provider Active Start: July 22, 2024 End: July 22, 2024 Dr. Judy Erwin MD Attending Provider Active Start: July 22, 2024 End: July 22, 2024 Goals (unrecognized section and content) Goals may be documented in a n alternate section FOR RECORDS PERTAINING TO PATIENTS WHO ARE OR HAVE BEEN ENROLLED IN A CHEMICAL DEPENDENCY/SUBSTANCEABUSE PROGRAM, SOME INFORMATION MAY BE OMITTED. This clinical summary was aggregated from multiple sources. Caution should be exercised in using it in the provision of clinical care. This summary normalizes information from multiple sources, and as a consequence, information in this document may materially change the coding, format and clinical context of patient data. In addition, data may be omitted in some cases. CLINICAL DECISIONS SHOULD BE BASED ON THE PRIMARY CLINICAL RECORDS. [facility] [employer] [facility]. provides no warranty or guarantee of the accuracy or completeness of information in this document.
--- NOTE | 2025-02-19 11:19 | US_ITS ---
PROCEDURE: THYROID 02/19/2025 REASON FOR EXAM: THROID NODULE TECHNIQUE: Procedure Code: USTHY Modality: US Procedure: THYROID COMPARISON: None FINDINGS: Right thyroid lobe size: 4.9 x 2.0 x 2.1 cm Left thyroid lobe size: 4.8 x 1.3 x 1.9 cm Isthmus: 0.2 cm Background parenchymal echotexture is homogeneous. Nodules: 1. Lobe: Right, Location: Mid, Size: 1.8 x 1.4 x 1.5 cm, Stability: N/A Composition: Solid or almost completely solid (+2) Echogenicity: Hypoechoic (+2) Margin: Smooth (+0) Shape: Wider than tall (+0) Echogenic Foci: None (+0) TI-RADS: 4 US/Thyroid IMPRESSION: TR 4 nodule of the right thyroid gland. RECOMMENDATION: Further evaluation with FNA is recommended. Reading Location: [id number]
== END | disposition home or self-care (01) ==
LOC: US 11:16
PROVIDERS: PCP Family Medicine; Referring Provider Surgery; Visit Provider Surgery
DX: E04.1 Nontoxic single thyroid nodule (principal)
CPT/HCPCS: 76536